=== PATIENT | female | born 1965 | race Caucasian/White ===

== ENCOUNTER 2017-03-13 14:57 | Inpatient (IN) | payer OTHER ==
[~2017-03-13] VITALS: Ht 165.1 cm; Wt 164.9 kg
[2017-03-13] MEDS ORDERED: TRAZ50TA35 PO (16:38)
[2017-03-13] MEDS ORDERED: OXYB10TA PO (16:38)
[2017-03-13] MEDS ORDERED: ALBU18002 INH (16:38)
[2017-03-13] MEDS ORDERED: ASPI81TA28 PO (16:38)
[2017-03-13] MEDS ORDERED: RANO1000 PO (16:38)
[2017-03-13] MEDS ORDERED: DULO60CA44 PO (16:38)
[2017-03-13] MEDS ORDERED: FLUT0.15 NAE (16:38)
[2017-03-13] MEDS ORDERED: FERR325T5 PO (16:38)
[2017-03-13] MEDS ORDERED: FURO-85 PO (16:38)
[2017-03-13] MEDS ORDERED: INSDGIPEN SC (16:38)
[2017-03-13] MEDS ORDERED: GABA-112 PO (16:38)
[2017-03-13] MEDS ORDERED: MEDR150I IM (16:38)
[2017-03-13] MEDS ORDERED: ATOR-22 PO (16:38)
[2017-03-13] MEDS ORDERED: PANT40TA PO (16:38)
[2017-03-13] MEDS ORDERED: EPP3/2 IM (16:38)
[2017-03-13] MEDS ORDERED: CHOL1CAP PO (16:38)
[2017-03-13] MEDS ORDERED: DULA1INJ SC (16:38)
[2017-03-13] MEDS ORDERED: ALBINS/ INH (16:38)
[2017-03-13 17:53] LABS: BUN/CREATININE RATIO 10.4 (10-20); CALCIUM 8.7 mg/dl (8.5-10.1); CREATININE 0.84 mg/dl (0.60-1.20); POTASSIUM 3.8 mmol/L (3.5-5.1)
[2017-03-13 17:56] LABS: ALB/GLOB RATIO 0.7 (0.9-2)
--- NOTE | 2017-03-13 18:27 | DIAGNOSTIC IMAGING REPORT ---
LEFT AXILLARY ULTRASOUND CLINICAL HISTORY: Left axillary edema. Evaluate for abscess. COMPARISON STUDY: No previous studies for comparison. FINDINGS: Sonography of the left axilla demonstrated no fluid collection to suggest an abscess. Soft tissue edema was noted. IMPRESSION: No left axillary abscess. Soft tissue edema may reflect cellulitis. Electronically signed by: Daljit Webb M.D. 03/13/2017 6:26 PM Dictated Date/Time: 03/13/2017 6:22 PM
--- NOTE | 2017-03-13 18:27 | DIAGNOSTIC IMAGING REPORT ---
RIGHT ABDOMINAL WALL ULTRASOUND CLINICAL HISTORY: Right abdominal wall cellulitis. Possible abscess. COMPARISON STUDY: No previous studies for comparison. FINDINGS: There is soft tissue edema involving the right lateral abdominal wall. There are several subcutaneous hypoechoic foci, but no well-defined fluid collections to indicate a drainable abscess. IMPRESSION: Extensive right lateral abdominal wall edema. No ultrasonographic evidence of a drainable abscess. Electronically signed by: Taz Burgos M.D. 03/13/2017 6:26 PM Dictated Date/Time: 03/13/2017 6:24 PM
[2017-03-13] MEDS ORDERED: VANCOMYCIN INJ 2,750 MG in SODIUM CHLORIDE 0.9% 250ML 250 ML IV STA (18:40)
[2017-03-13 18:46] LABS: BASO % 0.2 %; BASO ABS # 0.02 K/uL (0-0.2); COMPLETE YES; EOS % 0.7 %; HEMATOCRIT 39.6 % (37-47); IG% 0.2 %; LYMPH % 12.1 %; LYMPH ABS # 1.57 K/uL (1.2-3.4); MEAN CORPUSCULAR HGB CONC 34.1 g/dl (32-36); MEAN PLATELET VOLUME 11.2 fL (7.4-10.4); MONO % 8.7 %; NEUT % 78.1 %; PLATELET COUNT 205 K/uL (130-400); WHITE BLOOD COUNT 12.95 K/uL (4.8-10.8)
[2017-03-13] MEDS ORDERED: VANCOMYCIN INJ 2,750 MG in SODIUM CHLORIDE 0.9% 500ML 500 ML IV ONE (19:00)
--- NOTE | 2017-03-13 19:04 | EMERGENCY ROOM VISIT NOTE ---
ED Visit Note First contact with patient: 15:51 I did evaluate and examine this patient myself. I did guide management for the patient. I agree with the APC's assessment as discussed. Please see the APC's dictation for further details. I did independently review the ultrasound and blood work. The patient has a history of MRSA. The ultrasound does not show any evidence of drainable abscess. She is diabetic. No signs of necrotizing fasciitis. The patient will be hospitalized for IV antibiotics and further care.
[2017-03-13] MEDS ORDERED: TRAZODONE HCL 50 MG TAB PO PRN (19:45)
[2017-03-13] MEDS ORDERED: MAGNESIUM HYDROXIDE SUSP 30 ML UDC PO PRN (19:45)
[2017-03-13] MEDS ORDERED: FUROSEMIDE 20 MG TAB PO PRN (19:45)
[2017-03-13] MEDS ORDERED: ONDANSETRON INJ 2 MG/ML 2 ML VIAL IV PRN (19:45)
[2017-03-13] MEDS ORDERED: FLUTICASONE PROPIONATE NA SPR 16 GM BTL NAE PRN (19:45)
[2017-03-13] MEDS ORDERED: EPINEPHRINE ADULT AUTO-INJECT 0.3 MG SYR IM PRN (19:45)
[2017-03-13] MEDS ORDERED: ALBUTEROL 0.083% NEBU SOLN 3 ML VIAL INH PRN (19:45)
[2017-03-13] MEDS ORDERED: ALUMINUM/MAGNESIUM/SIMETH (MAALOX MAX) 30 ML UDC PO PRN (19:45)
--- NOTE | 2017-03-13 20:12 | History and Physical ---
History & Physical Date & Time of Service: Mar 13, 2017 at 20:03 Chief Complaint: Red Isaac On L Side And Up L Arm Primary Care Physician: Giovanny Rodriguez M.D. History of Present Illness Source: patient This is a 51 y/o F w/o IDDM, Asthma, depression who presents with redness/ warmth of her right abdominal wall and underside of her left upper arm that started 5 days ago. Does not recall any bug bites or tick bites. She is originally from [place]. Reports having a recent MRSA infection of her left lower extremity (2 mo ago) for which she was hospitalized. Reports fevers, chills, pain at the sites. ROS otherwise negative. Diabetes is uncontrolled per son. Does not work; takes care of grandchild. Past Medical/Surgical History DM HLD Asthma Depression Family History HTN Social History Smoking Status: Never Smoker Alcohol Use: occasionally Drug Use: none Marital Status: single Housing status: lives with family Occupational Status: unemployed Immunizations History of Influenza Vaccine: Unknown History of Tetanus Vaccine?: Unknown History of Pneumococcal: Unknown History of Hepatitis B Vaccine: Unknown Multi-Drug Resistant Organisms History of MDRO: No Allergies Coded Allergies: Bee Venom (Verified Allergy, Unknown, Unknown, 03/13/17) Cephalexin (Verified Allergy, Unknown, Unknown, 03/13/17) Clindamycin (Verified Allergy, Unknown, Unknown, 03/13/17) Diphenhydramine (Verified Allergy, Unknown, Unknown, 03/13/17) Erythromycin (Verified Allergy, Unknown, Unknown, 03/13/17) Fluticasone (Verified Allergy, Unknown, Unknown, 03/13/17) Milk Protein Extract (Verified Allergy, Unknown, Unknown, 03/13/17) Mometasone (Verified Allergy, Unknown, Unknown, 03/13/17) Salmeterol (Verified Allergy, Unknown, Unknown, 03/13/17) [place] (Verified Allergy, Unknown, Unknown, 03/13/17) Sulfamethoxazole w/Trimethoprim (Verified Allergy, Unknown, Unknown, 03/13) Uncoded Allergies: PAPER TAPE (Allergy, Unknown, Unknown, 03/13/17) Home Medications Scheduled Aspirin (Aspirin Ec), 81 MG PO DAILY Atorvastatin (Lipitor), 20 MG PO HS Dulaglutide (Trulicity), 0.5 ML SC WK Duloxetine Hcl (Cymbalta), 120 MG PO DAILY Ferrous Sulfate (Ferrous Sulfate), 325 MG PO BID Gabapentin (Neurontin), 100 MG PO BID Insulin Glargine (Lantus Solostar), 30 UNITS SC HS Medroxyprogesterone Acetate (C (Depo-Provera Contraceptiv), 150 MG IM Q10-12 WEELKS Oxybutynin Chloride Er (Ditropan Xl), 10 MG PO QAM Pantoprazole (Protonix), 40 MG PO DAILY Ranolazine (Ranexa), 1,000 MG PO BID Scheduled PRN Albuterol Sulf (Proventil 0.083% 2.5MG/3ML), 2.5 MG INH UD PRN for SOB/Wheezing Albuterol Sulfate (Proair Respiclick), 2 PUFFS INH Q4-6HRS PRN for SOB/Wheezing Cholecalciferol (Decara), 50,000 INTER.UNIT PO WK PRN for Supplement Epinephrine (Epipen), 0.3 MG IM UD PRN for ALLERGIC REACTION Fluticasone Propionate (Nasal) (Flonase Allergy Relief), 1-2 SPRAYS CYDNEY DAILY PRN for Allergy Symptoms Furosemide (Lasix), 20 MG PO DAILY PRN for Edema/Fluid Retention Trazodone Hcl (Trazodone), 25-50 MG PO HS PRN for Sleep Review of Systems Constitutional: + fever, + chills Eyes: No worsening of vision Respiratory: No cough, No sputum, No wheezing, No shortness of breath, No dyspnea on exertion, No dyspnea at rest Cardiovascular: No chest pain Abdomen: No pain, No nausea, No vomiting, No diarrhea Musculoskeletal: + muscle pain, + swelling Genitourinary - Female: No dysuria, No urinary frequency, No urinary urgency, No hematuria Integumentary: + rash, + new/changing skin lesions, + color change Physical Exam Vital Signs Date Time Temp Pulse Resp B/P (MAP) Pulse Ox O2 Delivery O2 Flow Rate FiO2 03/13/17 17:46 90 21 126/76 99 Room Air 03/13/17 16:18 110 03/13/17 16:17 95 Room Air 03/13/17 15:01 37.2 113 20 120/73 95 Room Air General Appearance: no apparent distress, + obese Eyes: PERRL, EOMI ENT: hearing grossly normal Neck: supple, no adenopathy Respiratory/Chest: lungs clear, normal breath sounds, no respiratory distress, no accessory muscle use Cardiovascular: regular rate, rhythm, no murmur Abdomen/GI: normal bowel sounds, soft, + tenderness, + pertinent finding ( Erythematous, indurated area over RUQ with area of skin break in the center) Extremities/Musculoskelatal: + pedal edema, + pertinent finding (Left upper Extremity with area of erythema in the posterior arm) Neurologic/Psych: alert, + depressed affect Diagnostics Laboratory Results Results Past 24 Hours Test 03/13/17 17:11 03/13/17 17:39 Range/Units White Blood Count 12.95 4.8-10.8 K/uL Red Blood Count 4.50 4.2-5.4 M/uL Hemoglobin 13.5 12.0-16.0 g/dL Hematocrit 39.6 37-47 % Mean Corpuscular Volume 88.0 80-100 fL Mean Corpuscular Hemoglobin 30.0 25-34 pg Mean Corpuscular Hemoglobin Concent 34.1 32-36 g/dl Platelet Count 205 130-400 K/uL Mean Platelet Volume 11.2 7.4-10.4 fL Neutrophils (%) (Auto) 78.1 % Lymphocytes (%) (Auto) 12.1 % Monocytes (%) (Auto) 8.7 % Eosinophils (%) (Auto) 0.7 % Basophils (%) (Auto) 0.2 % Neutrophils # (Auto) 10.11 1.4-6.5 K/uL Lymphocytes # (Auto) 1.57 1.2-3.4 K/uL Monocytes # (Auto) 1.13 0.11-0.59 K/uL Eosinophils # (Auto) 0.09 0-0.5 K/uL Basophils # (Auto) 0.02 0-0.2 K/uL RDW Standard Deviation 45.1 36.4-46.3 fL RDW Coefficient of Variation 13.9 11.5-14.5 % Immature Granulocyte % (Auto) 0.2 % Immature Granulocyte # (Auto) 0.03 0.00-0.02 K/uL Sodium Level 137 136-145 mmol/L Potassium Level 3.8 3.5-5.1 mmol/L Chloride Level 105 98-107 mmol/L Carbon Dioxide Level 26 21-32 mmol/L Anion Gap 6.0 3-11 mmol/L Blood Urea Nitrogen 9 7-18 mg/dl Creatinine 0.84 0.60-1.20 mg/dl Est Creatinine Clear Calc Drug Dose 128.1 ml/min Estimated GFR () 94.6 Estimated GFR (Non- 81.6 BUN/Creatinine Ratio 10.4 10-20 Random Glucose 229 70-99 mg/dl Calcium Level 8.7 8.5-10.1 mg/dl Total Bilirubin 1.0 0.2-1 mg/dl Aspartate Amino Transf (AST/SGOT) 5 15-37 U/L Alanine Aminotransferase (ALT/SGPT) 14 12-78 U/L Alkaline Phosphatase 113 45-117 U/L Total Protein 7.4 6.4-8.2 gm/dl Albumin 2.9 3.4-5.0 gm/dl Globulin 4.4 2.5-4.0 gm/dl Albumin/Globulin Ratio 0.7 0.9-2 Lactic Acid Level 1.0 0.4-2.0 mmol/L Microbiology Results 03/13/17 Blood Culture, Received Pending 03/13/17 Blood Culture, Received Pending Impression Assessment and Plan 51 y/o F w/ 1) RUQ abdominal wall cellulitis + Left upper posterior arm cellulitis vs. Erythema migrans/lymes Started on IV Vanc in the ED - continue to cover MRSA Add Doxy for Lymes (will cover mrsa as well - can D/C home with) Multiple drug allergies Blood cultures pending Afebrile Mild WBC count 2) Diabetes ISS Lantus 30 HS Accu-checks 3) Asthma Continue albuterol 4)CAD/LE edema/?CHF Continue ASA, Lipitor, Lasix 5) DVT proph Lovenox 6) Gerd Protonix 7) Depression/insomnia Trazadone 8) Code Full Attending Addendum: I have physically seen and examined this patient, have directed the resident's medical activities, and agree with the H&P as noted above with the following exceptions as noted. The patient is awake, alert and oriented 3, well-developed and well-nourished , normocephalic and atraumatic, lying in bed and in no acute distress. HEENT--PERRL, EOMI, mucous membranes and oropharynx dry. Neck--supple, no JVD or bruits, thyroid normal, trachea midline, no adenopathy. Heart--normal S1 and S2, no extra beats, no murmurs, rubs or gallops. Lungs--clear bilaterally with good air movement, no respiratory distress, no accessory muscle use. Abdomen--normal bowel sounds and soft, nontender and nondistended, no hernias or masses, no organomegaly, obese. Extremities--no cyanosis, clubbing or edema. There are good distal pulses b/l. Dermatologic--large area of erythema right lateral abdomen with centralized area of deeper erythema and tenderness. Left axilla with milder erythema and tenderness. Neurologic--cranial nerves II through XII grossly intact. Rheumatologic--left shoulder range of motion decreased due to skin pain, otherwise normal Psychiatric--normal affect. Assessment and Plan: Cellulitis right lateral abdominal wall and left axilla/history of MRSA-- Admitted to medical surgical floor. Place on vancomycin IV and doxycycline by mouth. Reports having been on doxycycline for previous skin infection. Follow blood cultures. Diabetes mellitus--Lantus 30 units subcutaneous at bedtime. Place on Accu-Cheks before meals and at bedtime with NovoLog coverage per scale. CAD/hypertension-- Continue aspirin and Lasix. Hyperlipidemia--continue Lipitor. Level of Care Med/Surg Advanced Directives Existing Advance Directive: No Existing Living Will: No Existing Power of Principal Programmer: No Resuscitation Status FULL RESUSCITATION VTE Prophylaxis VTE Risk Assessment Done? Y/N: Yes Risk Level: Moderate Given or contraindicated: SCD's Social Service Consult None Apply
[2017-03-13] MEDS ORDERED: IV FLUIDS COMPLETED PRN (20:30)
[2017-03-13 20:37] VITALS: BP 110/71; PULSE 98; TEMP 36.7; O2SAT 99
[2017-03-13 20:45] VITALS: BP 110/71; PULSE 98; TEMP 36.7; O2SAT 99; BMI 60.5
[2017-03-13] MEDS ORDERED: GLUCOSE 40% GEL 15 GM TUBE PO PRN (20:45)
[2017-03-13] MEDS ORDERED: DEXTROSE 50% 50 ML SYR IV PRN (20:45)
[2017-03-13] MEDS ORDERED: GLUCAGON FOR INJ 1 MG VIAL SQ PRN (20:45)
[2017-03-13] MEDS ORDERED: GLUCOSE 10 TABS/TUBE PO PRN (20:45)
[2017-03-13] MEDS ORDERED: VANCOMYCIN INJ 1,000 MG in SODIUM CHLORIDE 0.9% 250ML 250 ML IV SCH (21:00)
[2017-03-13] MEDS ORDERED: DOXYCYCLINE HYCLATE 100 MG CAP PO SCH (21:00)
[2017-03-13] MEDS ORDERED: VANCOMYCIN CONSULT ACTIVE PRN (21:15)
[2017-03-13 21:40] LABS: LYME DISEASE AB IGG NEG (NEG); LYME DISEASE AB IGM NEG (NEG)
[2017-03-13] MEDS: ATORVASTATIN 20 MG TAB PO SCH (21:42)
[2017-03-13] MEDS: FERROUS SULFATE 325 MG TAB PO SCH (21:42)
[2017-03-13] MEDS: GABAPENTIN 100 MG CAP PO SCH (21:42)
[2017-03-13] MEDS: INSULIN GLARGINE SOLOSTAR 100 UNITS/ML 3 ML PEN SC SCH (21:50)
[2017-03-13] MEDS: INSULIN ASPART 100 UNITS/ML 3 ML PEN SC SCH (21:50)
[2017-03-13 22:38] LABS: INR 1.1 (0.9-1.1); PARTIAL THROMBOPLASTIN RATIO 1.3; PROTHROMBIN TIME (PATIENT) 11.7 SECONDS (9.0-12.0)
--- NOTE | 2017-03-13 22:40 | Pharmacy Progress Note ---
Pharmacy Antibiotic Consult Date of Service: Mar 13, 2017. Pharmacy Dosing Scope Pharmacy is consulted to initiate vancomycin IV dosing therapy, order appropriate labs and adjust drug dose/frequency. Subjective The patient is a 51 year old female admitted on Mar 13, 2017 at 19:50. Objective Height (Feet): 5 Height (Inches): 5.00 Weight (Kilograms): 164.900 Lab Results (24hrs): Test 03/13/17 17:11 03/13/17 17:39 03/13/17 20:34 03/13/17 21:45 White Blood Count 12.95 K/uL (4.8-10.8) Red Blood Count 4.50 M/uL (4.2-5.4) Hemoglobin 13.5 g/dL (12.0-16.0) Hematocrit 39.6 % (37-47) Mean Corpuscular Volume 88.0 fL (80-100) Mean Corpuscular Hemoglobin 30.0 pg (25-34) Mean Corpuscular Hemoglobin Concent 34.1 g/dl (32-36) Platelet Count 205 K/uL (130-400) Mean Platelet Volume 11.2 fL (7.4-10.4) Neutrophils (%) (Auto) 78.1 % Lymphocytes (%) (Auto) 12.1 % Monocytes (%) (Auto) 8.7 % Eosinophils (%) (Auto) 0.7 % Basophils (%) (Auto) 0.2 % Neutrophils # (Auto) 10.11 K/uL (1.4-6.5) Lymphocytes # (Auto) 1.57 K/uL (1.2-3.4) Monocytes # (Auto) 1.13 K/uL (0.11-0.59) Eosinophils # (Auto) 0.09 K/uL (0-0.5) Basophils # (Auto) 0.02 K/uL (0-0.2) RDW Standard Deviation 45.1 fL (36.4-46.3) RDW Coefficient of Variation 13.9 % (11.5-14.5) Immature Granulocyte % (Auto) 0.2 % Immature Granulocyte # (Auto) 0.03 K/uL (0.00-0.02) Sodium Level 137 mmol/L (136-145) Potassium Level 3.8 mmol/L (3.5-5.1) Chloride Level 105 mmol/L (98-107) Carbon Dioxide Level 26 mmol/L (21-32) Anion Gap 6.0 mmol/L (3-11) Blood Urea Nitrogen 9 mg/dl (7-18) Creatinine 0.84 mg/dl (0.60-1.20) Est Creatinine Clear Calc Drug Dose 128.1 ml/min Estimated GFR () 94.6 Estimated GFR (Non- 81.6 BUN/Creatinine Ratio 10.4 (10-20) Random Glucose 229 mg/dl (70-99) Calcium Level 8.7 mg/dl (8.5-10.1) Total Bilirubin 1.0 mg/dl (0.2-1) Aspartate Amino Transf (AST/SGOT) 5 U/L (15-37) Alanine Aminotransferase (ALT/SGPT) 14 U/L (12-78) Alkaline Phosphatase 113 U/L (45-117) Total Protein 7.4 gm/dl (6.4-8.2) Albumin 2.9 gm/dl (3.4-5.0) Globulin 4.4 gm/dl (2.5-4.0) Albumin/Globulin Ratio 0.7 (0.9-2) Lyme Disease IgG Antibody NEG (NEG) Lyme Disease IgM Antibody NEG (NEG) Lactic Acid Level 1.0 mmol/L (0.4-2.0) Bedside Glucose 225 mg/dl (70-90) Assessment & Plan Patient started on vancomycin for abdominal cell wall cellulitis infection. BC x 2 are pending. Vancomycin: * LD of vancomycin 2750 mg (~17 mg/kg) given in the ED * Will start MD of vancomycin 1750 mg iv q 12 hrs to achieve an estimated trough ~15 mcg/ml * Estimated kinetics: t1/2~9 hrs, ke~0.08 hr-1, CrCl >100 ml/min (used CrCl max of 100 ml/min to calculate kinetics) * Will plan to order a trough prior to the 1600 dose on 03/15 to ensure therapeutic * Note, patient with elevated BMI >35 kg/m2 (actual 60 kg/m2) therefore was less aggressive with dosing b/c of risk of drug accumulation; will monitor closely Pharmacy will continue to follow and will adjust dose/frequency as necessary. Thank you
[2017-03-13] MEDS: RANOLAZINE 500 MG ER TAB PO SCH (22:54)
[2017-03-13] MEDS: ACETAMINOPHEN 325 MG TAB PO PRN (22:58)
[2017-03-13 23:06] VITALS: BP 100/61; PULSE 90; TEMP 38; O2SAT 98
[2017-03-13 23:57] VITALS: TEMP 37.3
[2017-03-14] MEDS: ENOXAPARIN 40 MG/0.4 ML SYR SQ SCH ×2 (00:55→21:22)
--- NOTE | 2017-03-14 02:10 | EMERGENCY ROOM VISIT NOTE ---
History First contact with patient: 15:51 Chief Complaint: OTHER COMPLAINT Stated Complaint: CELLULITIS OF RIGHT ABDOMINAL WALL History of Present Illness The patient is a 51 year old female who presents to the Emergency Room via private vehicle with complaints of "red laura on right side, and left arm". The patient states that since Thursday she has been noting swelling on the right side of the abdomen as well as the left axillary region. The regions have been increasingly becoming more red and getting larger in size. They're painful. She has a history of MRSA. She notes that she also has diabetes. Review of Systems A complete 10-point Review of Systems was discussed with the patient, with pertinent positives and negatives listed in the History of Present Illness. All remaining Review of Systems questions can be considered negative unless otherwise specified. Past Medical/Surgical History Medical Problems: (1) Cellulitis of right abdominal wall Family History No pertinent. Social History Smoking Status: Never Smoker Drug Use: none Marital Status: single Occupation Status: unemployed Current/Historical Medications Scheduled Aspirin (Aspirin Ec), 81 MG PO DAILY Atorvastatin (Lipitor), 20 MG PO HS Dulaglutide (Trulicity), 0.5 ML SC WK Duloxetine Hcl (Cymbalta), 120 MG PO DAILY Ferrous Sulfate (Ferrous Sulfate), 325 MG PO BID Gabapentin (Neurontin), 100 MG PO BID Insulin Glargine (Lantus Solostar), 30 UNITS SC HS Medroxyprogesterone Acetate (C (Depo-Provera Contraceptiv), 150 MG IM Q10-12 WEELKS Oxybutynin Chloride Er (Ditropan Xl), 10 MG PO QAM Pantoprazole (Protonix), 40 MG PO DAILY Ranolazine (Ranexa), 1,000 MG PO BID Scheduled PRN Albuterol Sulf (Proventil 0.083% 2.5MG/3ML), 2.5 MG INH UD PRN for SOB/Wheezing Albuterol Sulfate (Proair Respiclick), 2 PUFFS INH Q4-6HRS PRN for SOB/Wheezing Cholecalciferol (Decara), 50,000 INTER.UNIT PO WK PRN for Supplement Epinephrine (Epipen), 0.3 MG IM UD PRN for ALLERGIC REACTION Fluticasone Propionate (Nasal) (Flonase Allergy Relief), 1-2 SPRAYS CYDNEY DAILY PRN for Allergy Symptoms Furosemide (Lasix), 20 MG PO DAILY PRN for Edema/Fluid Retention Trazodone Hcl (Trazodone), 25-50 MG PO HS PRN for Sleep Physical Exam Vital Signs Date Time Temp Pulse Resp B/P (MAP) Pulse Ox O2 Delivery O2 Flow Rate FiO2 03/13/17 17:46 90 21 126/76 99 Room Air 03/13/17 16:18 110 03/13/17 16:17 95 Room Air 03/13/17 15:01 37.2 113 20 120/73 95 Room Air Physical Exam VITAL SIGNS - Vital signs and nursing notes were reviewed. Stable. GENERAL -51-year-old female appearing her stated age who is in no acute distress. Communicates well with provider and answers questions appropriately. SKIN -there is a large right sided abdominal wall cellulitis as well as left axillary region. There are central indurated regions with no fluctuance. The right sided abdominal region measures approximately 10 cm in height, by about 30 cm in length. The left axillary region exhibits a very tender central nodule -like region, followed by a region of about 15 x 10 cm in size cellulitic area. HEAD - NC/AT. LUNGS - Chest wall symmetric without accessory muscle use, intercostals retractions, or central cyanosis. Normal vesicular breath sounds CTA B/L. No wheezes, rales, or rhonchi appreciated. CARDIAC - RRR with S1/S2. No murmur, rubs, or gallops appreciated. Medical Decision & Procedures ER Provider Diagnostic Interpretation: LEFT AXILLARY ULTRASOUND CLINICAL HISTORY: Left axillary edema. Evaluate for abscess. COMPARISON STUDY: No previous studies for comparison. FINDINGS: Sonography of the left axilla demonstrated no fluid collection to suggest an abscess. Soft tissue edema was noted. IMPRESSION: No left axillary abscess. Soft tissue edema may reflect cellulitis. Electronically signed by: Daljit Webb M.D. 03/13/2017 6:26 PM Dictated Date/Time: 03/13/2017 6:22 PM RIGHT ABDOMINAL WALL ULTRASOUND CLINICAL HISTORY: Right abdominal wall cellulitis. Possible abscess. COMPARISON STUDY: No previous studies for comparison. FINDINGS: There is soft tissue edema involving the right lateral abdominal wall. There are several subcutaneous hypoechoic foci, but no well-defined fluid collections to indicate a drainable abscess. IMPRESSION: Extensive right lateral abdominal wall edema. No ultrasonographic evidence of a drainable abscess. Electronically signed by: Taz Burgos M.D. 03/13/2017 6:26 PM Dictated Date/Time: 03/13/2017 6:24 PM Laboratory Results 03/13/17 17:11 Red Blood Count 4.50, Mean Corpuscular Volume 88.0, Mean Corpuscular Hemoglobin 30.0, Mean Corpuscular Hemoglobin Concent 34.1, Mean Platelet Volume 11.2, Neutrophils (%) (Auto) 78.1, Lymphocytes (%) (Auto) 12.1, Monocytes (%) (Auto) 8.7, Eosinophils (%) (Auto) 0.7, Basophils (%) (Auto) 0.2, Neutrophils # (Auto) 10.11, Lymphocytes # (Auto) 1.57, Monocytes # (Auto) 1.13, Eosinophils # (Auto) 0.09, Basophils # (Auto) 0.02 03/13/17 17:11 Test 03/13/17 17:11 03/13/17 17:39 White Blood Count 12.95 K/uL (4.8-10.8) Red Blood Count 4.50 M/uL (4.2-5.4) Hemoglobin 13.5 g/dL (12.0-16.0) Hematocrit 39.6 % (37-47) Mean Corpuscular Volume 88.0 fL (80-100) Mean Corpuscular Hemoglobin 30.0 pg (25-34) Mean Corpuscular Hemoglobin Concent 34.1 g/dl (32-36) Platelet Count 205 K/uL (130-400) Mean Platelet Volume 11.2 fL (7.4-10.4) Neutrophils (%) (Auto) 78.1 % Lymphocytes (%) (Auto) 12.1 % Monocytes (%) (Auto) 8.7 % Eosinophils (%) (Auto) 0.7 % Basophils (%) (Auto) 0.2 % Neutrophils # (Auto) 10.11 K/uL (1.4-6.5) Lymphocytes # (Auto) 1.57 K/uL (1.2-3.4) Monocytes # (Auto) 1.13 K/uL (0.11-0.59) Eosinophils # (Auto) 0.09 K/uL (0-0.5) Basophils # (Auto) 0.02 K/uL (0-0.2) RDW Standard Deviation 45.1 fL (36.4-46.3) RDW Coefficient of Variation 13.9 % (11.5-14.5) Immature Granulocyte % (Auto) 0.2 % Immature Granulocyte # (Auto) 0.03 K/uL (0.00-0.02) Anion Gap 6.0 mmol/L (3-11) Est Creatinine Clear Calc Drug Dose 128.1 ml/min Estimated GFR () 94.6 Estimated GFR (Non- 81.6 BUN/Creatinine Ratio 10.4 (10-20) Calcium Level 8.7 mg/dl (8.5-10.1) Total Bilirubin 1.0 mg/dl (0.2-1) Aspartate Amino Transf (AST/SGOT) 5 U/L (15-37) Alanine Aminotransferase (ALT/SGPT) 14 U/L (12-78) Alkaline Phosphatase 113 U/L (45-117) Total Protein 7.4 gm/dl (6.4-8.2) Albumin 2.9 gm/dl (3.4-5.0) Globulin 4.4 gm/dl (2.5-4.0) Albumin/Globulin Ratio 0.7 (0.9-2) Lyme Disease IgG Antibody NEG (NEG) Lyme Disease IgM Antibody NEG (NEG) Lactic Acid Level 1.0 mmol/L (0.4-2.0) Medications Administered Medications (Trade) Dose Ordered Sig/Dana Route Start Time Stop Time Status Last Admin Dose Admin Vancomycin HCl 2750 mg/Sodium Chloride 555 ml @ 200 mls/hr TODAY@1900 ONCE IV 03/13/17 19:00 03/13/17 21:46 DC 03/13/17 18:55 200 MLS/HR Acetaminophen (Tylenol Tab) 650 mg Q4H PRN PO 03/13/17 19:45 04/12/17 19:44 03/13/17 22:58 650 MG Medical Decision Patient was seen and evaluated as above. She presents to us today with cellulitis since the beginning of the week. Question whether or not there are abscesses, and given her underlying history of diabetes, as well as MRSA I do not want to attempt drainage unless verified abscesses. Ultrasound results as above. No drainable collection. Vancomycin will be initiated after identifying kidney function appropriately. CBC reveals slight leukocytosis. No evidence of kidney or liver failure. At this time I believe that inpatient management is warranted. Case was discussed with the attending physician, and subsequent to the hospitalist. Please refer to further documentation regarding her stay. Vancomycin was dosed after discussing dosing with pharmacist. In evaluation treatment this patient following differential diagnoses were entertained: Sialitis, abscess, sepsis, among others. Impression Primary Impression: Cellulitis of right abdominal wall Additional Impression: Cellulitis of left axilla Departure Information Dispostion Admitted as an inpatient Condition FAIR Referrals Giovanny Rodriguez M.D. (PCP) Forms WORK / SCHOOL INSTRUCTIONS, HOME CARE DOCUMENTATION FORM, IMPORTANT VISIT INFORMATION Patient Instructions [facility] Problem Qualifiers
[2017-03-14 03:00] VITALS: TEMP 36.7
[2017-03-14] MEDS: VANCOMYCIN INJ 1,750 MG in SODIUM CHLORIDE 0.9% 500ML 500 ML IV SCH ×2 (03:47→15:40)
[2017-03-14] MEDS: ACETAMINOPHEN 325 MG TAB PO PRN (03:48)
[2017-03-14 06:59] VITALS: BP 112/62; PULSE 84; TEMP 37; O2SAT 97
[2017-03-14] MEDS: INSULIN ASPART 100 UNITS/ML 3 ML PEN SC SCH ×4 (07:39→21:27)
[2017-03-14] MEDS: PANTOprazole SOD 40 MG TAB PO SCH (07:46)
[2017-03-14] MEDS: RANOLAZINE 500 MG ER TAB PO SCH ×2 (07:47→21:22)
[2017-03-14] MEDS: GABAPENTIN 100 MG CAP PO SCH ×2 (07:47→21:23)
[2017-03-14] MEDS: DULOXETINE HCL 60 MG CAP PO SCH (07:47)
[2017-03-14] MEDS: FERROUS SULFATE 325 MG TAB PO SCH ×2 (07:47→21:23)
[2017-03-14] MEDS: ASPIRIN 81 MG ECTAB PO SCH (07:48)
[2017-03-14] MEDS: OXYBUTYNIN CHLORIDE 5 MG TABCR PO SCH (07:48)
[2017-03-14 08:40] LABS: BASO % 0.1 %; BASO ABS # 0.01 K/uL (0-0.2); COMPLETE YES; EOS % 1.6 %; IG% 0.3 %; LYMPH % 12.3 %; LYMPH ABS # 1.42 K/uL (1.2-3.4); MEAN CORPUSCULAR HEMOGLOBIN 28.7 pg (25-34); MEAN CORPUSCULAR HGB CONC 32.6 g/dl (32-36); MONO % 7.1 %; NEUT % 78.6 %; PLATELET COUNT 185 K/uL (130-400); RED BLOOD COUNT 4.32 M/uL (4.2-5.4); WHITE BLOOD COUNT 11.52 K/uL (4.8-10.8)
--- NOTE | 2017-03-14 10:07 | Family Medicine Progress Note ---
Progress Note Date of Service Mar 14, 2017. Subjective Pt evaluation today including: conversation w/ patient, physical exam, chart review, lab review, review of studies Pain: reports mild soreness in L axillary and R lateral abdominal regions PO Intake: tolerating Voiding: no voiding problems This AM pt reports onset of L axillary and R lateral abdominal wall soreness earlier in the week which got worse, and erythematous over the course of the week. She cares for her grandchild and thus had difficulty presenting for evaluation earlier. Otherwise she denies any f/c, cp, sob, abd pn, n/v/d or pain in her extremities. Constitutional: No fever, No chills Respiratory: No shortness of breath Cardiovascular: No chest pain Abdomen: + pain (R lateral abdominal wall soreness), No nausea Musculoskeletal: + problem reported (L axillary region soreness) Female : No dysuria Skin: + color change, + problem reported (erythema and edema of L axillary region and R lateral abdominal wall) Medications Current Inpatient Medications Medications (Trade) Dose Ordered Sig/Dana Route Start Time Stop Time Status Last Admin Dose Admin Enoxaparin Sodium (Lovenox Inj) 40 mg QPM SQ 03/13/17 23:00 04/12/17 22:59 Acetaminophen (Tylenol Tab) 650 mg Q4H PRN PO 03/13/17 19:45 04/12/17 19:44 03/14/17 03:48 650 MG Al Hydrox/Mg Hydrox/Simethicone (Maalox Max Susp) 15 ml Q4H PRN PO 03/13/17 19:45 04/12/17 19:44 Magnesium Hydroxide (Milk Of Magnesia Susp) 30 ml Q6H PRN PO 03/13/17 19:45 04/12/17 19:44 Ondansetron HCl (Zofran Inj) 4 mg Q6H PRN IV 03/13/17 19:45 04/12/17 19:44 Albuterol Sulfate (Ventolin 0.083% 2.5MG/3ML Neb) 2.5 mg UD PRN INH 03/13/17 19:45 04/12/17 19:44 Aspirin (Ecotrin Tab) 81 mg DAILY PO 03/14/17 09:00 04/13/17 08:59 03/14/17 07:48 81 MG Atorvastatin Calcium (Lipitor Tab) 20 mg HS PO 03/13/17 21:00 04/12/17 20:59 03/13/17 21:42 20 MG Duloxetine HCl (Cymbalta Cap) 120 mg DAILY PO 03/14/17 09:00 04/13/17 08:59 03/14/17 07:47 120 MG Epinephrine (Epipen) 0.3 mg UD PRN IM 03/13/17 19:45 04/12/17 19:44 Ferrous Sulfate (Feosol Tab) 325 mg BID PO 03/13/17 21:00 04/12/17 20:59 03/14/17 07:47 325 MG Fluticasone Propionate (Flonase Nasal [place]) 1 sprays DAILY PRN CYDNEY 03/13/17 19:45 04/12/17 19:44 Furosemide (Lasix Tab) 20 mg DAILY PRN PO 03/13/17 19:45 04/12/17 19:44 Gabapentin (Neurontin Cap) 100 mg BID PO 03/13/17 21:00 04/12/17 20:59 03/14/17 07:47 100 MG Oxybutynin Chloride (Ditropan-Xl Tab) 10 mg QAM PO 03/14/17 09:00 04/13/17 08:59 03/14/17 07:48 10 MG Pantoprazole Sodium (Protonix Tab) 40 mg DAILY PO 03/14/17 09:00 04/13/17 08:59 03/14/17 07:46 40 MG Trazodone HCl (Desyrel Tab) 25 mg HS PRN PO 03/13/17 19:45 04/12/17 19:44 Insulin Aspart (novoLOG ASPART) SLIDING SCALE G... ACHS SC 03/13/17 21:00 04/12/17 20:59 03/13/17 21:50 4 UNITS Insulin Glargine (Lantus Solostar Pen) 30 units HS SC 03/13/17 21:00 04/12/17 20:59 03/13/17 21:50 30 UNITS Miscellaneous (Iv Fluids Completed) 1 ea PRN PRN N/A 03/13/17 20:30 03/13/18 20:29 Glucose (Glucose 40% Gel) 15-30 GRAMS 15 GRAMS... UD PRN PO 03/13/17 20:45 04/12/17 20:44 Glucose (Glucose Chew Tab) 4-8 Tablets 4 Tabl... UD PRN PO 03/13/17 20:45 04/12/17 20:44 Dextrose (Dextrose 50% 50ML Syringe) 25-50ML OF 50% DW IV FOR... UD PRN IV 03/13/17 20:45 04/12/17 20:44 Glucagon (Glucagon Inj) 1 mg UD PRN SQ 03/13/17 20:45 04/12/17 20:44 Vancomycin HCl (Consult) 1 ea UD PRN N/A 03/13/17 21:15 04/12/17 21:14 Vancomycin HCl 1750 mg/Sodium Chloride 535 ml @ 200 mls/hr Q12H IV 03/14/17 04:00 03/24/17 03:59 03/14/17 03:47 200 MLS/HR Ranolazine (Ranexa ER Tab) 1,000 mg BID PO 03/14/17 09:00 04/13/17 08:59 03/14/17 07:47 1,000 MG Objective Vital Signs Date Time Temp Pulse Resp B/P (MAP) Pulse Ox O2 Delivery O2 Flow Rate FiO2 03/14/17 08:00 Room Air 03/14/17 06:59 37.0 84 20 112/62 (79) 97 Room Air 03/14/17 03:00 36.7 03/14/17 00:03 Room Air 03/13/17 23:57 37.3 03/13/17 23:06 38.0 90 20 100/61 (74) 98 Room Air 03/13/17 20:45 36.7 98 20 110/71 99 Room Air 03/13/17 20:37 36.7 98 20 110/71 (84) 99 Room Air 03/13/17 20:14 102 20 139/69 98 Room Air 03/13/17 17:46 90 21 126/76 99 Room Air 03/13/17 16:18 110 03/13/17 16:17 95 Room Air 03/13/17 15:01 37.2 113 20 120/73 95 Room Air Physical Exam General Appearance: no apparent distress Eyes: normal inspection Neck: supple Respiratory/Chest: lungs clear, normal breath sounds Cardiovascular: regular rate, rhythm, no edema, no murmur Abdomen: normal bowel sounds, non tender, soft, + pertinent finding (R lateral abdominal wall area of erythema and induration tender to palpation w/ot notable fluctuance, area of skin break noted in the center that is not oozing or fluctuant) Extremities: + pertinent finding (R axillary region of erythema, and induration , TTP, w/ot fluctuance) Neurologic/Psychiatric: alert, oriented x 3 Skin: + pertinent finding (see above) Laboratory Results 03/14/17 08:14 Red Blood Count 4.32, Mean Corpuscular Volume 88.0, Mean Corpuscular Hemoglobin 28.7, Mean Corpuscular Hemoglobin Concent 32.6, Mean Platelet Volume 11.0, Neutrophils (%) (Auto) 78.6, Lymphocytes (%) (Auto) 12.3, Monocytes (%) (Auto) 7.1, Eosinophils (%) (Auto) 1.6, Basophils (%) (Auto) 0.1, Neutrophils # (Auto) 9.06, Lymphocytes # (Auto) 1.42, Monocytes # (Auto) 0.82, Eosinophils # (Auto) 0.18, Basophils # (Auto) 0.01 03/13/17 17:11 Test 03/13/17 17:11 03/13/17 17:39 03/13/17 21:45 03/14/17 07:23 Anion Gap 6.0 mmol/L (3-11) Est Creatinine Clear Calc Drug Dose 128.1 ml/min Estimated GFR () 94.6 Estimated GFR (Non- 81.6 BUN/Creatinine Ratio 10.4 (10-20) Calcium Level 8.7 mg/dl (8.5-10.1) Total Bilirubin 1.0 mg/dl (0.2-1) Aspartate Amino Transf (AST/SGOT) 5 U/L (15-37) Alanine Aminotransferase (ALT/SGPT) 14 U/L (12-78) Alkaline Phosphatase 113 U/L (45-117) Total Protein 7.4 gm/dl (6.4-8.2) Albumin 2.9 gm/dl (3.4-5.0) Globulin 4.4 gm/dl (2.5-4.0) Albumin/Globulin Ratio 0.7 (0.9-2) Lyme Disease IgG Antibody NEG (NEG) Lyme Disease IgM Antibody NEG (NEG) Lactic Acid Level 1.0 mmol/L (0.4-2.0) Prothrombin Time 11.7 SECONDS (9.0-12.0) Prothromb Time International Ratio 1.1 (0.9-1.1) Activated Partial Thromboplast Time 32.6 SECONDS (21.0-31.0) Partial Thromboplastin Ratio 1.3 Bedside Glucose 154 mg/dl (70-90) Test 03/14/17 08:14 White Blood Count 11.52 K/uL (4.8-10.8) Red Blood Count 4.32 M/uL (4.2-5.4) Hemoglobin 12.4 g/dL (12.0-16.0) Hematocrit 38.0 % (37-47) Mean Corpuscular Volume 88.0 fL (80-100) Mean Corpuscular Hemoglobin 28.7 pg (25-34) Mean Corpuscular Hemoglobin Concent 32.6 g/dl (32-36) Platelet Count 185 K/uL (130-400) Mean Platelet Volume 11.0 fL (7.4-10.4) Neutrophils (%) (Auto) 78.6 % Lymphocytes (%) (Auto) 12.3 % Monocytes (%) (Auto) 7.1 % Eosinophils (%) (Auto) 1.6 % Basophils (%) (Auto) 0.1 % Neutrophils # (Auto) 9.06 K/uL (1.4-6.5) Lymphocytes # (Auto) 1.42 K/uL (1.2-3.4) Monocytes # (Auto) 0.82 K/uL (0.11-0.59) Eosinophils # (Auto) 0.18 K/uL (0-0.5) Basophils # (Auto) 0.01 K/uL (0-0.2) RDW Standard Deviation 45.0 fL (36.4-46.3) RDW Coefficient of Variation 13.8 % (11.5-14.5) Immature Granulocyte % (Auto) 0.3 % Immature Granulocyte # (Auto) 0.03 K/uL (0.00-0.02) Assessment and Plan 51 yoF with hx DM-insulin dependent, neuropathy, varicose veins, HLD, asthma, depression, overactive bladder and hx of previous MRSA infection who presented with R lateral abdominal wall and L axillary region erythema/induration x 5 days consistent with cellulitis based on ultrasound, elevated WBC and clinical presentation. On IV Vanc. No drainable abscess at this time. Lyme also considered and ruled out. Right lateral abdominal wall and L axillary region cellulitis - mild extension beyond margins drawn in the ED noted this AM. AFVSS - US: soft tissue edema consistent with cellulitis, no drainable abscess - WBC downtrending 13.45 -> 11.52 this AM - Lactate 1 - BCx pending - Continue IV Vanc to cover for MRSA - Once clinically improved transition to doxycycline (allergic to multiple abx) will cover MRSA Diabetes - ISS - Lantus 30 HS - Accu-checks Neuropathy - Gabapentin CAD/LE edema/?CHF - Continue ASA, Lasix, lipitor - Continue Ranolazine Asthma - Continue albuterol GERD - Protonix Overactive bladder - Oxybutynin Depression/insomnia - Duloxetine - Trazadone DVT prophylaxis - Lovenox Full Code Continued [facility] stay due to: other (On IV medications, pending clinical improvement) Discharge planning: home Resident Involvement: Resident Care Provided Care Provided: Adult Hospital Medicine Reviewed: Pt Seen/Exam by Me History continues to have pain in the right flank area of redness and left armpit Constitutional: denies: fever Respiratory: negative: short of breath Cardiovascular: denies chest pain General Appearance: no apparent distress, obese Respiratory: lungs clear, no respiratory distress Cardiovascular: regular rate, rhythm Neurologic/Psychiatric: alert, oriented x 3 Skin Characteristics: other (right flank area skin with extending erythema beyond pen laura. tenderness ++. left axilla with mild erythema and underlying induration) Assessment/Plan Resident Physician Supervision Note: I independently interviewed and examined the patient and verified the rodriguez history and physical, reviewed labs and image studies, discussed the case with the resident Dr. Ellison and agree with the findings and care plan.
[2017-03-14 15:04] VITALS: BP 102/68; PULSE 83; TEMP 36.8; O2SAT 97
[2017-03-14] MEDS: ATORVASTATIN 20 MG TAB PO SCH (21:24)
[2017-03-14] MEDS: INSULIN GLARGINE SOLOSTAR 100 UNITS/ML 3 ML PEN SC SCH (21:28)
[2017-03-14 22:56] VITALS: BP 124/70; PULSE 88; TEMP 37; O2SAT 96
[2017-03-15] MEDS: VANCOMYCIN INJ 1,750 MG in SODIUM CHLORIDE 0.9% 500ML 500 ML IV SCH ×2 (04:18→16:30)
[2017-03-15 07:13] VITALS: BP 102/63; PULSE 83; TEMP 36.8; O2SAT 94
[2017-03-15 07:23] LABS: BASO % 0.1 %; BASO ABS # 0.01 K/uL (0-0.2); COMPLETE YES; EOS % 2.6 %; HEMATOCRIT 35.6 % (37-47); IG% 0.1 %; LYMPH % 16.9 %; LYMPH ABS # 1.45 K/uL (1.2-3.4); MEAN CELL VOLUME 86.8 fL (80-100); MEAN CORPUSCULAR HEMOGLOBIN 28.5 pg (25-34); MEAN CORPUSCULAR HGB CONC 32.9 g/dl (32-36); MEAN PLATELET VOLUME 10.9 fL (7.4-10.4); MONO % 7.3 %; PLATELET COUNT 188 K/uL (130-400)
[2017-03-15 07:52] LABS: BUN/CREATININE RATIO 8.9 (10-20); CALCIUM 8.1 mg/dl (8.5-10.1); CREATININE 0.64 mg/dl (0.60-1.20); POTASSIUM 3.7 mmol/L (3.5-5.1)
[2017-03-15] MEDS: GABAPENTIN 100 MG CAP PO SCH ×2 (08:07→21:19)
[2017-03-15] MEDS: RANOLAZINE 500 MG ER TAB PO SCH ×2 (08:07→21:15)
[2017-03-15] MEDS: PANTOprazole SOD 40 MG TAB PO SCH (08:08)
[2017-03-15] MEDS: ASPIRIN 81 MG ECTAB PO SCH (08:08)
[2017-03-15] MEDS: FERROUS SULFATE 325 MG TAB PO SCH ×2 (08:08→21:20)
[2017-03-15] MEDS: OXYBUTYNIN CHLORIDE 5 MG TABCR PO SCH (08:08)
[2017-03-15] MEDS: DULOXETINE HCL 60 MG CAP PO SCH (08:08)
[2017-03-15] MEDS: INSULIN ASPART 100 UNITS/ML 3 ML PEN SC SCH ×4 (08:13→21:16)
--- NOTE | 2017-03-15 10:26 | Surgery Consultation ---
Consultation Date of Consultation: Mar 15, 2017. Attending Physician: Olivia Resendez M.D. History of Present Illness pt began with a red spot on her right abdomen on thursday and this progressed. admitted thursday for cellulitis and IV antibiotics started. the cellulitis is progressing into an abcess Past Medical/Surgical History Medical Problems: (1) Cellulitis of left axilla Status: Acute Social History Smoking Status: Never Smoker Alcohol Use: occasionally Drug Use: none Marital Status: single Occupation Status: unemployed Allergies Coded Allergies: Bee Venom (Verified Allergy, Unknown, Unknown, 03/13/17) Cephalexin (Verified Allergy, Unknown, Unknown, 03/13/17) Clindamycin (Verified Allergy, Unknown, Unknown, 03/13/17) Diphenhydramine (Verified Allergy, Unknown, Unknown, 03/13/17) Erythromycin (Verified Allergy, Unknown, Unknown, 03/13/17) Fluticasone (Verified Allergy, Unknown, Unknown, 03/13/17) Milk Protein Extract (Verified Allergy, Unknown, Unknown, 03/13/17) Mometasone (Verified Allergy, Unknown, Unknown, 03/13/17) Salmeterol (Verified Allergy, Unknown, Unknown, 03/13/17) [place] (Verified Allergy, Unknown, Unknown, 03/13/17) Sulfamethoxazole w/Trimethoprim (Verified Allergy, Unknown, Unknown, 03/13) Uncoded Allergies: PAPER TAPE (Allergy, Unknown, Unknown, 03/13/17) Home Medications Scheduled Aspirin (Aspirin Ec), 81 MG PO DAILY Atorvastatin (Lipitor), 20 MG PO HS Dulaglutide (Trulicity), 0.5 ML SC WK Duloxetine Hcl (Cymbalta), 120 MG PO DAILY Ferrous Sulfate (Ferrous Sulfate), 325 MG PO BID Gabapentin (Neurontin), 100 MG PO BID Insulin Glargine (Lantus Solostar), 30 UNITS SC HS Medroxyprogesterone Acetate (C (Depo-Provera Contraceptiv), 150 MG IM Q10-12 WEELKS Oxybutynin Chloride Er (Ditropan Xl), 10 MG PO QAM Pantoprazole (Protonix), 40 MG PO DAILY Ranolazine (Ranexa), 1,000 MG PO BID Scheduled PRN Albuterol Sulf (Proventil 0.083% 2.5MG/3ML), 2.5 MG INH UD PRN for SOB/Wheezing Albuterol Sulfate (Proair Respiclick), 2 PUFFS INH Q4-6HRS PRN for SOB/Wheezing Cholecalciferol (Decara), 50,000 INTER.UNIT PO WK PRN for Supplement Epinephrine (Epipen), 0.3 MG IM UD PRN for ALLERGIC REACTION Fluticasone Propionate (Nasal) (Flonase Allergy Relief), 1-2 SPRAYS CYDNEY DAILY PRN for Allergy Symptoms Furosemide (Lasix), 20 MG PO DAILY PRN for Edema/Fluid Retention Trazodone Hcl (Trazodone), 25-50 MG PO HS PRN for Sleep Current Inpatient Medications Current Inpatient Medications Medications (Trade) Dose Ordered Sig/Dana Route Start Time Stop Time Status Last Admin Dose Admin Enoxaparin Sodium (Lovenox Inj) 40 mg QPM SQ 03/13/17 23:00 04/12/17 22:59 03/14/17 21:22 40 MG Acetaminophen (Tylenol Tab) 650 mg Q4H PRN PO 03/13/17 19:45 04/12/17 19:44 03/14/17 03:48 650 MG Al Hydrox/Mg Hydrox/Simethicone (Maalox Max Susp) 15 ml Q4H PRN PO 03/13/17 19:45 04/12/17 19:44 Magnesium Hydroxide (Milk Of Magnesia Susp) 30 ml Q6H PRN PO 03/13/17 19:45 04/12/17 19:44 Ondansetron HCl (Zofran Inj) 4 mg Q6H PRN IV 03/13/17 19:45 04/12/17 19:44 Albuterol Sulfate (Ventolin 0.083% 2.5MG/3ML Neb) 2.5 mg UD PRN INH 03/13/17 19:45 04/12/17 19:44 Aspirin (Ecotrin Tab) 81 mg DAILY PO 03/14/17 09:00 04/13/17 08:59 03/15/17 08:08 81 MG Atorvastatin Calcium (Lipitor Tab) 20 mg HS PO 03/13/17 21:00 04/12/17 20:59 03/14/17 21:24 20 MG Duloxetine HCl (Cymbalta Cap) 120 mg DAILY PO 03/14/17 09:00 04/13/17 08:59 03/15/17 08:08 120 MG Epinephrine (Epipen) 0.3 mg UD PRN IM 03/13/17 19:45 04/12/17 19:44 Ferrous Sulfate (Feosol Tab) 325 mg BID PO 03/13/17 21:00 04/12/17 20:59 03/15/17 08:08 325 MG Fluticasone Propionate (Flonase Nasal [place]) 1 sprays DAILY PRN CYDNEY 03/13/17 19:45 04/12/17 19:44 Furosemide (Lasix Tab) 20 mg DAILY PRN PO 03/13/17 19:45 04/12/17 19:44 Gabapentin (Neurontin Cap) 100 mg BID PO 03/13/17 21:00 04/12/17 20:59 03/15/17 08:07 100 MG Oxybutynin Chloride (Ditropan-Xl Tab) 10 mg QAM PO 03/14/17 09:00 04/13/17 08:59 03/15/17 08:08 10 MG Pantoprazole Sodium (Protonix Tab) 40 mg DAILY PO 03/14/17 09:00 04/13/17 08:59 03/15/17 08:08 40 MG Trazodone HCl (Desyrel Tab) 25 mg HS PRN PO 03/13/17 19:45 04/12/17 19:44 Insulin Aspart (novoLOG ASPART) SLIDING SCALE G... ACHS SC 03/13/17 21:00 04/12/17 20:59 03/15/17 08:13 1 UNITS Insulin Glargine (Lantus Solostar Pen) 30 units HS SC 03/13/17 21:00 04/12/17 20:59 03/14/17 21:28 30 UNITS Miscellaneous (Iv Fluids Completed) 1 ea PRN PRN N/A 03/13/17 20:30 03/13/18 20:29 Glucose (Glucose 40% Gel) 15-30 GRAMS 15 GRAMS... UD PRN PO 03/13/17 20:45 04/12/17 20:44 Glucose (Glucose Chew Tab) 4-8 Tablets 4 Tabl... UD PRN PO 03/13/17 20:45 04/12/17 20:44 Dextrose (Dextrose 50% 50ML Syringe) 25-50ML OF 50% DW IV FOR... UD PRN IV 03/13/17 20:45 04/12/17 20:44 Glucagon (Glucagon Inj) 1 mg UD PRN SQ 03/13/17 20:45 04/12/17 20:44 Vancomycin HCl (Consult) 1 ea UD PRN N/A 03/13/17 21:15 04/12/17 21:14 Vancomycin HCl 1750 mg/Sodium Chloride 535 ml @ 200 mls/hr Q12H IV 03/14/17 04:00 03/24/17 03:59 03/15/17 04:18 200 MLS/HR Ranolazine (Ranexa ER Tab) 1,000 mg BID PO 03/14/17 09:00 04/13/17 08:59 03/15/17 08:07 1,000 MG Review of Systems Constitutional: + fever Abdomen: + pain, + problem reported (cellultitis right abdomen) Physical Exam Date Time Temp Pulse Resp B/P (MAP) Pulse Ox O2 Delivery O2 Flow Rate FiO2 03/15/17 08:45 Room Air 03/15/17 07:13 36.8 83 20 102/63 (76) 94 Room Air 03/15/17 00:05 Room Air 03/14/17 22:56 37.0 88 19 124/70 (88) 96 Room Air 03/14/17 20:05 Room Air 03/14/17 16:45 Room Air 03/14/17 15:04 36.8 83 18 102/68 (79) 97 Room Air General Appearance: + mild distress Head: normocephalic, atraumatic Eyes: EOMI, sclerae normal ENT: hearing grossly normal Neck: supple, no JVD Respiratory/Chest: no respiratory distress, no accessory muscle use Abdomen/GI: soft, + pertinent finding (large area of cellulitis right mid to lower abdomen. very tender/hot to touch. central area of abcess with skin intact. ) Extremities/Musculoskelatal: + pertinent finding (left axillary cysts with sinus tracts c/w hydradenitis. no active inflammation/infection) Neurologic/Psych: alert, oriented x 3 Skin: + pertinent finding (see abdominal exam) Laboratory Results Last 24 Hours Test 03/14/17 11:19 03/14/17 16:18 03/14/17 20:00 03/15/17 06:39 Bedside Glucose 176 mg/dl 151 mg/dl 175 mg/dl White Blood Count 8.60 K/uL Red Blood Count 4.10 M/uL Hemoglobin 11.7 g/dL Hematocrit 35.6 % Mean Corpuscular Volume 86.8 fL Mean Corpuscular Hemoglobin 28.5 pg Mean Corpuscular Hemoglobin Concent 32.9 g/dl Platelet Count 188 K/uL Mean Platelet Volume 10.9 fL Neutrophils (%) (Auto) 73.0 % Lymphocytes (%) (Auto) 16.9 % Monocytes (%) (Auto) 7.3 % Eosinophils (%) (Auto) 2.6 % Basophils (%) (Auto) 0.1 % Neutrophils # (Auto) 6.28 K/uL Lymphocytes # (Auto) 1.45 K/uL Monocytes # (Auto) 0.63 K/uL Eosinophils # (Auto) 0.22 K/uL Basophils # (Auto) 0.01 K/uL RDW Standard Deviation 43.7 fL RDW Coefficient of Variation 13.8 % Immature Granulocyte % (Auto) 0.1 % Immature Granulocyte # (Auto) 0.01 K/uL Sodium Level 139 mmol/L Potassium Level 3.7 mmol/L Chloride Level 109 mmol/L Carbon Dioxide Level 23 mmol/L Anion Gap 7.0 mmol/L Blood Urea Nitrogen 6 mg/dl Creatinine 0.64 mg/dl Est Creatinine Clear Calc Drug Dose 168.1 ml/min Estimated GFR () 121.4 Estimated GFR (Non- 104.8 BUN/Creatinine Ratio 8.9 Random Glucose 191 mg/dl Calcium Level 8.1 mg/dl Test 03/15/17 07:25 Bedside Glucose 163 mg/dl Assessment & Plan 1.abdominal wall cellulitis with abcess in diabetic will take to OR for drainage today discussed risks/options/answered questions pt agreeable 2. left axillary hydradenitis chronic with no acute infection. nothing to do now
--- NOTE | 2017-03-15 11:25 | Family Medicine Progress Note ---
Progress Note Date of Service Mar 15, 2017. Subjective Pt evaluation today including: conversation w/ patient, physical exam, chart review, lab review Pain: mild discomfort at site of cellulitis PO Intake: tolerating Voiding: no voiding problems Current Inpatient Medications Medications (Trade) Dose Ordered Sig/Dana Route Start Time Stop Time Status Last Admin Dose Admin Enoxaparin Sodium (Lovenox Inj) 40 mg QPM SQ 03/13/17 23:00 04/12/17 22:59 03/14/17 21:22 40 MG Acetaminophen (Tylenol Tab) 650 mg Q4H PRN PO 03/13/17 19:45 04/12/17 19:44 03/14/17 03:48 650 MG Al Hydrox/Mg Hydrox/Simethicone (Maalox Max Susp) 15 ml Q4H PRN PO 03/13/17 19:45 04/12/17 19:44 Magnesium Hydroxide (Milk Of Magnesia Susp) 30 ml Q6H PRN PO 03/13/17 19:45 04/12/17 19:44 Ondansetron HCl (Zofran Inj) 4 mg Q6H PRN IV 03/13/17 19:45 04/12/17 19:44 Albuterol Sulfate (Ventolin 0.083% 2.5MG/3ML Neb) 2.5 mg UD PRN INH 03/13/17 19:45 04/12/17 19:44 Aspirin (Ecotrin Tab) 81 mg DAILY PO 03/14/17 09:00 04/13/17 08:59 03/15/17 08:08 81 MG Atorvastatin Calcium (Lipitor Tab) 20 mg HS PO 03/13/17 21:00 04/12/17 20:59 03/14/17 21:24 20 MG Duloxetine HCl (Cymbalta Cap) 120 mg DAILY PO 03/14/17 09:00 04/13/17 08:59 03/15/17 08:08 120 MG Epinephrine (Epipen) 0.3 mg UD PRN IM 03/13/17 19:45 04/12/17 19:44 Ferrous Sulfate (Feosol Tab) 325 mg BID PO 03/13/17 21:00 04/12/17 20:59 03/15/17 08:08 325 MG Fluticasone Propionate (Flonase Nasal [place]) 1 sprays DAILY PRN CYDNEY 03/13/17 19:45 04/12/17 19:44 Furosemide (Lasix Tab) 20 mg DAILY PRN PO 03/13/17 19:45 04/12/17 19:44 Gabapentin (Neurontin Cap) 100 mg BID PO 03/13/17 21:00 04/12/17 20:59 03/15/17 08:07 100 MG Oxybutynin Chloride (Ditropan-Xl Tab) 10 mg QAM PO 03/14/17 09:00 04/13/17 08:59 03/15/17 08:08 10 MG Pantoprazole Sodium (Protonix Tab) 40 mg DAILY PO 03/14/17 09:00 04/13/17 08:59 03/15/17 08:08 40 MG Trazodone HCl (Desyrel Tab) 25 mg HS PRN PO 03/13/17 19:45 04/12/17 19:44 Insulin Aspart (novoLOG ASPART) SLIDING SCALE G... ACHS SC 03/13/17 21:00 04/12/17 20:59 03/15/17 08:13 1 UNITS Insulin Glargine (Lantus Solostar Pen) 30 units HS SC 03/13/17 21:00 04/12/17 20:59 03/14/17 21:28 30 UNITS Miscellaneous (Iv Fluids Completed) 1 ea PRN PRN N/A 03/13/17 20:30 03/13/18 20:29 Glucose (Glucose 40% Gel) 15-30 GRAMS 15 GRAMS... UD PRN PO 03/13/17 20:45 04/12/17 20:44 Glucose (Glucose Chew Tab) 4-8 Tablets 4 Tabl... UD PRN PO 03/13/17 20:45 04/12/17 20:44 Dextrose (Dextrose 50% 50ML Syringe) 25-50ML OF 50% DW IV FOR... UD PRN IV 03/13/17 20:45 04/12/17 20:44 Glucagon (Glucagon Inj) 1 mg UD PRN SQ 03/13/17 20:45 04/12/17 20:44 Vancomycin HCl (Consult) 1 ea UD PRN N/A 03/13/17 21:15 04/12/17 21:14 Vancomycin HCl 1750 mg/Sodium Chloride 535 ml @ 200 mls/hr Q12H IV 03/14/17 04:00 03/24/17 03:59 03/15/17 04:18 200 MLS/HR Ranolazine (Ranexa ER Tab) 1,000 mg BID PO 03/14/17 09:00 04/13/17 08:59 03/15/17 08:07 1,000 MG Constitutional: No fever Respiratory: No shortness of breath Cardiovascular: No chest pain Abdomen: + pain (at site of abdominal wall cellulitis), No nausea, No vomiting Female : No dysuria Skin: + new/changing skin lesions Medications Current Inpatient Medications Medications (Trade) Dose Ordered Sig/Dana Route Start Time Stop Time Status Last Admin Dose Admin Enoxaparin Sodium (Lovenox Inj) 40 mg QPM SQ 03/13/17 23:00 04/12/17 22:59 03/14/17 21:22 40 MG Acetaminophen (Tylenol Tab) 650 mg Q4H PRN PO 03/13/17 19:45 04/12/17 19:44 03/14/17 03:48 650 MG Al Hydrox/Mg Hydrox/Simethicone (Maalox Max Susp) 15 ml Q4H PRN PO 03/13/17 19:45 04/12/17 19:44 Magnesium Hydroxide (Milk Of Magnesia Susp) 30 ml Q6H PRN PO 03/13/17 19:45 04/12/17 19:44 Ondansetron HCl (Zofran Inj) 4 mg Q6H PRN IV 03/13/17 19:45 04/12/17 19:44 Albuterol Sulfate (Ventolin 0.083% 2.5MG/3ML Neb) 2.5 mg UD PRN INH 03/13/17 19:45 04/12/17 19:44 Aspirin (Ecotrin Tab) 81 mg DAILY PO 03/14/17 09:00 04/13/17 08:59 03/15/17 08:08 81 MG Atorvastatin Calcium (Lipitor Tab) 20 mg HS PO 03/13/17 21:00 04/12/17 20:59 03/14/17 21:24 20 MG Duloxetine HCl (Cymbalta Cap) 120 mg DAILY PO 03/14/17 09:00 04/13/17 08:59 03/15/17 08:08 120 MG Epinephrine (Epipen) 0.3 mg UD PRN IM 03/13/17 19:45 04/12/17 19:44 Ferrous Sulfate (Feosol Tab) 325 mg BID PO 03/13/17 21:00 04/12/17 20:59 03/15/17 08:08 325 MG Fluticasone Propionate (Flonase Nasal [place]) 1 sprays DAILY PRN CYDNEY 03/13/17 19:45 04/12/17 19:44 Furosemide (Lasix Tab) 20 mg DAILY PRN PO 03/13/17 19:45 04/12/17 19:44 Gabapentin (Neurontin Cap) 100 mg BID PO 03/13/17 21:00 04/12/17 20:59 03/15/17 08:07 100 MG Oxybutynin Chloride (Ditropan-Xl Tab) 10 mg QAM PO 03/14/17 09:00 04/13/17 08:59 03/15/17 08:08 10 MG Pantoprazole Sodium (Protonix Tab) 40 mg DAILY PO 03/14/17 09:00 04/13/17 08:59 03/15/17 08:08 40 MG Trazodone HCl (Desyrel Tab) 25 mg HS PRN PO 03/13/17 19:45 04/12/17 19:44 Insulin Aspart (novoLOG ASPART) SLIDING SCALE G... ACHS SC 03/13/17 21:00 04/12/17 20:59 03/15/17 08:13 1 UNITS Insulin Glargine (Lantus Solostar Pen) 30 units HS SC 03/13/17 21:00 04/12/17 20:59 03/14/17 21:28 30 UNITS Miscellaneous (Iv Fluids Completed) 1 ea PRN PRN N/A 03/13/17 20:30 03/13/18 20:29 Glucose (Glucose 40% Gel) 15-30 GRAMS 15 GRAMS... UD PRN PO 03/13/17 20:45 04/12/17 20:44 Glucose (Glucose Chew Tab) 4-8 Tablets 4 Tabl... UD PRN PO 03/13/17 20:45 04/12/17 20:44 Dextrose (Dextrose 50% 50ML Syringe) 25-50ML OF 50% DW IV FOR... UD PRN IV 03/13/17 20:45 04/12/17 20:44 Glucagon (Glucagon Inj) 1 mg UD PRN SQ 03/13/17 20:45 04/12/17 20:44 Vancomycin HCl (Consult) 1 ea UD PRN N/A 03/13/17 21:15 04/12/17 21:14 Vancomycin HCl 1750 mg/Sodium Chloride 535 ml @ 200 mls/hr Q12H IV 03/14/17 04:00 03/24/17 03:59 03/15/17 04:18 200 MLS/HR Ranolazine (Ranexa ER Tab) 1,000 mg BID PO 03/14/17 09:00 04/13/17 08:59 03/15/17 08:07 1,000 MG Objective Vital Signs Date Time Temp Pulse Resp B/P (MAP) Pulse Ox O2 Delivery O2 Flow Rate FiO2 03/15/17 08:45 Room Air 03/15/17 07:13 36.8 83 20 102/63 (76) 94 Room Air 03/15/17 00:05 Room Air 03/14/17 22:56 37.0 88 19 124/70 (88) 96 Room Air 03/14/17 20:05 Room Air 03/14/17 16:45 Room Air 03/14/17 15:04 36.8 83 18 102/68 (79) 97 Room Air Physical Exam General Appearance: no apparent distress Eyes: normal inspection Neck: supple Respiratory/Chest: lungs clear, normal breath sounds Cardiovascular: regular rate, rhythm, no edema Abdomen: normal bowel sounds, soft, + pertinent finding (R lateral abdominal wall tenderness, and erythema with extending margins and central area of abscess with intact skin) Neurologic/Psychiatric: alert, oriented x 3 Skin: + pertinent finding (L axillary region induration and mild erythema) Laboratory Results 03/15/17 06:39 Red Blood Count 4.10, Mean Corpuscular Volume 86.8, Mean Corpuscular Hemoglobin 28.5, Mean Corpuscular Hemoglobin Concent 32.9, Mean Platelet Volume 10.9, Neutrophils (%) (Auto) 73.0, Lymphocytes (%) (Auto) 16.9, Monocytes (%) (Auto) 7.3, Eosinophils (%) (Auto) 2.6, Basophils (%) (Auto) 0.1, Neutrophils # (Auto) 6.28, Lymphocytes # (Auto) 1.45, Monocytes # (Auto) 0.63, Eosinophils # (Auto) 0.22, Basophils # (Auto) 0.01 03/15/17 06:39 Test 03/15/17 06:39 03/15/17 07:25 White Blood Count 8.60 K/uL (4.8-10.8) Red Blood Count 4.10 M/uL (4.2-5.4) Hemoglobin 11.7 g/dL (12.0-16.0) Hematocrit 35.6 % (37-47) Mean Corpuscular Volume 86.8 fL (80-100) Mean Corpuscular Hemoglobin 28.5 pg (25-34) Mean Corpuscular Hemoglobin Concent 32.9 g/dl (32-36) Platelet Count 188 K/uL (130-400) Mean Platelet Volume 10.9 fL (7.4-10.4) Neutrophils (%) (Auto) 73.0 % Lymphocytes (%) (Auto) 16.9 % Monocytes (%) (Auto) 7.3 % Eosinophils (%) (Auto) 2.6 % Basophils (%) (Auto) 0.1 % Neutrophils # (Auto) 6.28 K/uL (1.4-6.5) Lymphocytes # (Auto) 1.45 K/uL (1.2-3.4) Monocytes # (Auto) 0.63 K/uL (0.11-0.59) Eosinophils # (Auto) 0.22 K/uL (0-0.5) Basophils # (Auto) 0.01 K/uL (0-0.2) RDW Standard Deviation 43.7 fL (36.4-46.3) RDW Coefficient of Variation 13.8 % (11.5-14.5) Immature Granulocyte % (Auto) 0.1 % Immature Granulocyte # (Auto) 0.01 K/uL (0.00-0.02) Anion Gap 7.0 mmol/L (3-11) Est Creatinine Clear Calc Drug Dose 168.1 ml/min Estimated GFR () 121.4 Estimated GFR (Non- 104.8 BUN/Creatinine Ratio 8.9 (10-20) Calcium Level 8.1 mg/dl (8.5-10.1) Bedside Glucose 163 mg/dl (70-90) Assessment and Plan 51 yoF with hx DM-insulin dependent, neuropathy, varicose veins, HLD, asthma, depression, overactive bladder and hx of previous MRSA infection who presented with R lateral abdominal wall and L axillary region erythema/induration x 5 days consistent with cellulitis based on ultrasound. AFVSS. WBC resolved but clinically worse. On IV Vanc. Scheduled for I&D of abdominal wall abscess with surgery today Right lateral abdominal wall and L axillary region cellulitis - abdominal wall cellulitis - central area of abscess with intact skin and mild extension beyond margins drawn noted this AM. L axillary region induration with mild erythema. AFVSS - general surgery consulted - scheduled for I&D today - US: soft tissue edema consistent with cellulitis, no drainable abscess - 03/13 - WBC normalized 13.45 -> 8.60 this AM - Lactate 1 - BCx NGTD - Continue IV Vanc to cover for MRSA - Once clinically improved transition to doxycycline (allergic to multiple abx) will cover MRSA Diabetes - ISS - Lantus 30 HS - Accu-checks Neuropathy - Gabapentin CAD/LE edema/?CHF - Continue ASA, Lasix, lipitor - Continue Ranolazine Asthma - Continue albuterol GERD - Protonix Overactive bladder - Oxybutynin Depression/insomnia - Duloxetine - Trazadone DVT prophylaxis - Lovenox Full Code Continued [facility] stay due to: other (pending clinical improvement ) Discharge planning: home Resident Involvement: Resident Care Provided Care Provided: Adult Hospital Medicine Reviewed: Pt Seen/Exam by Me History right flank red area still painful. left armpit still painful Constitutional: denies: fever Respiratory: negative: short of breath Cardiovascular: denies chest pain General Appearance: no apparent distress Respiratory: lungs clear, no respiratory distress Cardiovascular: regular rate, rhythm Neurologic/Psychiatric: alert, oriented x 3 Skin Characteristics: other (right flank skin erythema same. induration worse. central area with pus pointing. left axilla with deep swelling and induration) Assessment/Plan Resident Physician Supervision Note: I independently interviewed and examined the patient and verified the rodriguez history and physical, reviewed labs and image studies, discussed the case with the resident Dr. Ellison and agree with the findings and care plan.
[2017-03-15] MEDS ORDERED: KETAMINE HCL INJ 50 MG/ML 10 ML VIAL ONE (12:54)
[2017-03-15] MEDS ORDERED: FENTANYL CITRATE INJ 50 MCG/1 ML 2 ML VIAL ONE (12:55)
[2017-03-15] MEDS ORDERED: MIDAZOLAM HCL 1 MG/ML 2ML VIAL ONE (12:55)
[2017-03-15] MEDS ORDERED: ONDANSETRON INJ 2 MG/ML 2 ML VIAL IV PRN (13:45)
[2017-03-15] MEDS ORDERED: ATROPINE SULFATE 0.1 MG/ML 5ML SYR IV PRN (13:45)
[2017-03-15] MEDS ORDERED: LABETALOL HCL IV 5 MG/ML 20ML IV PRN (13:45)
[2017-03-15] MEDS ORDERED: FLUMAZENIL 0.1 MG/1 ML 10 ML VIAL IV PRN (13:45)
[2017-03-15] MEDS ORDERED: PROMETHAZINE HCL INJ 12.5 MG in SODIUM CHLORIDE 0.9% 50ML 50 ML IV PRN (13:45)
[2017-03-15] MEDS ORDERED: NALOXONE HCL 0.4 MG/1 ML VIAL/CARP IV PRN (13:45)
[2017-03-15] MEDS ORDERED: FENTANYL CITRATE INJ 50 MCG/1 ML 2 ML VIAL IV PRN (13:45)
--- NOTE | 2017-03-15 13:55 | [facility] Operative Report ---
Operative Report Operative Date Mar 15, 2017. Pre-Operative Diagnosis RIGHT ABDOMINAL WALL ABCESS Post-Operative Diagnosis SAME PREOP Procedure(s) Performed INCISION AND DRAINAGE RIGHT ABDOMINAL WALL ABCESS Surgeon DR. Pamella BURNHAM Estimated Blood Loss 20ml Findings abdominal wall abcess Specimens 1.AEROBES, ANAEROBES, GRAM STAIN, CULTURE AND SENSITIVITY Anesthesia MAC Disposition Recovery Room / PACU Description of Procedure After informed consent was obtained the patient was taken to the operating suite and placed in supine position. IV sedation was administered by anesthesia and titrated to effect. After adequate sedation was obtained, the abdomen was sterilely prepped and draped and an 11 blade scalpel was used to make an incision directly over the visible abcess. Blunt finger fractionation was used and a deep abcess cavity was entered. we obtained a moderate amount of pus. A specimen was sent for gram stain, culture and sensitivity. The would was thoroughly irrigated and packed with 1/2 inch plain packing. A sterile dressing was applied. The patient was awakened and transferred to recovery in stable condition. I attest to the content of the Intraoperative Record and any orders documented therein. Any exceptions are noted below.
--- NOTE | 2017-03-15 14:16 | Anesthesiology Progress Note ---
Anesthesia Post Op Note Date & Time Mar 15, 2017 at 14:16 Vital Signs Pain Intensity: 0 Vital Signs Past 12 Hours Date Time Temp Pulse Resp B/P (MAP) Pulse Ox O2 Delivery O2 Flow Rate FiO2 03/15/17 14:10 36.9 86 20 116/66 95 Room Air 03/15/17 14:00 84 20 113/72 94 Room Air 03/15/17 13:51 36.9 89 20 117/79 95 Room Air 03/15/17 08:45 Room Air 03/15/17 07:13 36.8 83 20 102/63 (76) 94 Room Air Notes Mental Status: alert / awake / arousable, participated in evaluation Pt Amnestic to Procedure: Yes Nausea / Vomiting: adequately controlled Pain: adequately controlled Airway Patency, RR, SpO2: stable & adequate BP & HR: stable & adequate Hydration State: stable & adequate Anesthetic Complications: no major complications apparent
[2017-03-15 14:25] VITALS: BP 102/66; PULSE 84; TEMP 37.1; O2SAT 95
[2017-03-15 14:58] VITALS: BP 117/64; PULSE 89; O2SAT 96
[2017-03-15 15:25] VITALS: BP 130/69; PULSE 85; TEMP 36.9; O2SAT 94
[2017-03-15] MEDS ORDERED: VANCOMYCIN TROUGH ONE (15:30)
[2017-03-15 16:22] VITALS: BP 112/64; PULSE 82; TEMP 37.1; O2SAT 95
[2017-03-15] MEDS: INSULIN GLARGINE SOLOSTAR 100 UNITS/ML 3 ML PEN SC SCH (21:17)
[2017-03-15] MEDS: ENOXAPARIN 40 MG/0.4 ML SYR SQ SCH (21:17)
[2017-03-15] MEDS: ATORVASTATIN 20 MG TAB PO SCH (21:20)
[2017-03-15 23:02] VITALS: BP 99/56; PULSE 85; TEMP 36.8; O2SAT 97
[2017-03-16] MEDS: VANCOMYCIN INJ 1,750 MG in SODIUM CHLORIDE 0.9% 500ML 500 ML IV SCH ×2 (04:37→16:34)
[2017-03-16 05:46] LABS: BASO % 0.1 %; BASO ABS # 0.01 K/uL (0-0.2); COMPLETE YES; EOS % 2.9 %; HEMATOCRIT 34.3 % (37-47); IG% 0.1 %; LYMPH % 21.3 %; LYMPH ABS # 1.47 K/uL (1.2-3.4); MEAN CELL VOLUME 86.8 fL (80-100); MEAN CORPUSCULAR HEMOGLOBIN 29.4 pg (25-34); MEAN CORPUSCULAR HGB CONC 33.8 g/dl (32-36); MEAN PLATELET VOLUME 10.4 fL (7.4-10.4); MONO % 8.1 %; NEUT % 67.5 %; PLATELET COUNT 175 K/uL (130-400); RED BLOOD COUNT 3.95 M/uL (4.2-5.4); WHITE BLOOD COUNT 6.89 K/uL (4.8-10.8)
[2017-03-16 06:10] LABS: BUN/CREATININE RATIO 11.3 (10-20); CALCIUM 8.1 mg/dl (8.5-10.1); CREATININE 0.61 mg/dl (0.60-1.20); POTASSIUM 3.7 mmol/L (3.5-5.1)
--- NOTE | 2017-03-16 06:48 | Family Medicine Progress Note ---
Progress Note Date of Service Mar 16, 2017. Subjective Pt evaluation today including: conversation w/ patient, physical exam, chart review, lab review, review of studies Pain: controlled Voiding: no voiding problems Pt reports she is feeling better than she did on admission. Says pain in her abdominal skin is improving, although still painful at times with movement. 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 No events over night. Constitutional: No fever, No chills Cardiovascular: + orthopnea (pt states she needs several pillows to sleep on at night), No chest pain Abdomen: No pain, No nausea, No vomiting, No diarrhea, No constipation Objective Physical Exam General Appearance: WD/WN, no apparent distress, + obese Eyes: normal inspection, EOMI Respiratory/Chest: chest non-tender, lungs clear, normal breath sounds, no respiratory distress Cardiovascular: regular rate, rhythm, no edema, no gallop, no JVD, no murmur, + pertinent finding (pulses present throughout.) Abdomen: normal bowel sounds, non tender, soft Extremities: normal range of motion, + pertinent finding (raised subcutaneous nodule in LT axillary area, non draining) Neurologic/Psychiatric: normal mood/affect, oriented x 3 Skin: warm/dry, + pertinent finding (RT abdominal wall in mid axillary line has 4 cm incised area surrounded by local swelling and erythema, covered with wound care bandage. Also, b/l LE + for stasis dermatitis, varicose veins) Assessment and Plan 51F here for RT abdominal wall cellulitis, with PMH insulin dependent diabetes mellitus, CAD, asthma, depression. Hospital Day: 3 (03/16) Right lateral abdominal wall and L axillary region cellulitis - Ongoing wound care - Continue Vancomycin HCl 1750 mg/Sodium Chloride, 535 ml @ 200 mls/hr Q12H IV - 03/16 is day 3 of therapy. - Sensitivities pending. - pain improving (last tylenol dose 03/14) - ordered warm compress for LT axillary region Diabetes - continue Insulin Glargine (Lantus Solostar Pen) - continue Insulin Aspart (novoLOG ASPART) Neuropathy - continue Gabapentin 100 BID CAD/LE edema/?CHF - pt states she visited her adapted physical education teacher in [place] last week, with no new recommendations or change in treatment. - continue ASA 81 mg, Atorvastatin 20mg OD, - Furosemide 20 PRN - for angina, continue Ranolazine (Ranexa ER Tab) 1000mg BID Asthma - albuterol PRN Allergies - Epipen prn - fluticasone nasal spray PRN GERD - continue pantoprazole 40 mg daily Overactive bladder - continue Oxybutynin Chloride (Ditropan-Xl Tab) QAM Depression/insomnia - continue cymbalta 120mg daily Anemia - continue ferrous sulfate 325 mg OD DVT prophylaxis - Lovenox 40mg QPM Insomnia - trazodone 25mg PRN Full Code Dispo: home Current Inpatient Medications Medications (Trade) Dose Ordered Sig/Dana Route Start Time Stop Time Status Last Admin Dose Admin Enoxaparin Sodium (Lovenox Inj) 40 mg QPM SQ 03/13/17 23:00 04/12/17 22:59 03/15/17 21:17 40 MG Acetaminophen (Tylenol Tab) 650 mg Q4H PRN PO 03/13/17 19:45 04/12/17 19:44 03/14/17 03:48 650 MG Al Hydrox/Mg Hydrox/Simethicone (Maalox Max Susp) 15 ml Q4H PRN PO 03/13/17 19:45 04/12/17 19:44 Magnesium Hydroxide (Milk Of Magnesia Susp) 30 ml Q6H PRN PO 03/13/17 19:45 04/12/17 19:44 Ondansetron HCl (Zofran Inj) 4 mg Q6H PRN IV 03/13/17 19:45 04/12/17 19:44 Albuterol Sulfate (Ventolin 0.083% 2.5MG/3ML Neb) 2.5 mg UD PRN INH 03/13/17 19:45 04/12/17 19:44 Aspirin (Ecotrin Tab) 81 mg DAILY PO 03/14/17 09:00 04/13/17 08:59 03/15/17 08:08 81 MG Atorvastatin Calcium (Lipitor Tab) 20 mg HS PO 03/13/17 21:00 04/12/17 20:59 03/15/17 21:20 20 MG Duloxetine HCl (Cymbalta Cap) 120 mg DAILY PO 03/14/17 09:00 04/13/17 08:59 03/15/17 08:08 120 MG Epinephrine (Epipen) 0.3 mg UD PRN IM 03/13/17 19:45 04/12/17 19:44 Ferrous Sulfate (Feosol Tab) 325 mg BID PO 03/13/17 21:00 04/12/17 20:59 03/15/17 21:20 325 MG Fluticasone Propionate (Flonase Nasal [place]) 1 sprays DAILY PRN CYDNEY 03/13/17 19:45 04/12/17 19:44 Furosemide (Lasix Tab) 20 mg DAILY PRN PO 03/13/17 19:45 04/12/17 19:44 Gabapentin (Neurontin Cap) 100 mg BID PO 03/13/17 21:00 04/12/17 20:59 03/15/17 21:19 100 MG Oxybutynin Chloride (Ditropan-Xl Tab) 10 mg QAM PO 03/14/17 09:00 04/13/17 08:59 03/15/17 08:08 10 MG Pantoprazole Sodium (Protonix Tab) 40 mg DAILY PO 03/14/17 09:00 04/13/17 08:59 03/15/17 08:08 40 MG Trazodone HCl (Desyrel Tab) 25 mg HS PRN PO 03/13/17 19:45 04/12/17 19:44 Insulin Aspart (novoLOG ASPART) SLIDING SCALE G... ACHS SC 03/13/17 21:00 04/12/17 20:59 03/15/17 21:16 2 UNITS Insulin Glargine (Lantus Solostar Pen) 30 units HS SC 03/13/17 21:00 04/12/17 20:59 03/15/17 21:17 30 UNITS Miscellaneous (Iv Fluids Completed) 1 ea PRN PRN N/A 03/13/17 20:30 03/13/18 20:29 Glucose (Glucose 40% Gel) 15-30 GRAMS 15 GRAMS... UD PRN PO 03/13/17 20:45 04/12/17 20:44 Glucose (Glucose Chew Tab) 4-8 Tablets 4 Tabl... UD PRN PO 03/13/17 20:45 04/12/17 20:44 Dextrose (Dextrose 50% 50ML Syringe) 25-50ML OF 50% DW IV FOR... UD PRN IV 03/13/17 20:45 04/12/17 20:44 Glucagon (Glucagon Inj) 1 mg UD PRN SQ 03/13/17 20:45 04/12/17 20:44 Vancomycin HCl (Consult) 1 ea UD PRN N/A 03/13/17 21:15 04/12/17 21:14 Vancomycin HCl 1750 mg/Sodium Chloride 535 ml @ 200 mls/hr Q12H IV 03/14/17 04:00 03/24/17 03:59 03/16/17 04:37 200 MLS/HR Ranolazine (Ranexa ER Tab) 1,000 mg BID PO 03/14/17 09:00 04/13/17 08:59 03/15/17 21:15 1,000 MG Resident Tracking Resident Involvement: Resident Care Provided Care Provided: Adult Hospital Medicine
[2017-03-16] MEDS: INSULIN ASPART 100 UNITS/ML 3 ML PEN SC SCH ×4 (07:25→21:35)
[2017-03-16 07:30] VITALS: BP 101/62; PULSE 84; TEMP 36.9; O2SAT 98
[2017-03-16] MEDS: GABAPENTIN 100 MG CAP PO SCH ×2 (08:01→21:31)
[2017-03-16] MEDS: RANOLAZINE 500 MG ER TAB PO SCH ×2 (08:01→21:31)
[2017-03-16] MEDS: ASPIRIN 81 MG ECTAB PO SCH (08:02)
[2017-03-16] MEDS: OXYBUTYNIN CHLORIDE 5 MG TABCR PO SCH (08:02)
[2017-03-16] MEDS: PANTOprazole SOD 40 MG TAB PO SCH (08:02)
[2017-03-16] MEDS: DULOXETINE HCL 60 MG CAP PO SCH (08:02)
[2017-03-16] MEDS: FERROUS SULFATE 325 MG TAB PO SCH ×2 (08:02→21:31)
[2017-03-16 11:20] LABS: ESTIMATED AVERAGE GLUCOSE 151 mg/dl; HA1C FLAG Normal (Normal)
[2017-03-16 11:30] VITALS: Ht 165.1 cm; Wt 164.9 kg
--- NOTE | 2017-03-16 11:54 | Surgery Progress Note ---
Surgery Progress Note Date of Service Mar 16, 2017. Subjective Post OP Day: 1 feeling better. much less pain at abcess site today. Objective Vital Signs: Date Time Temp Pulse Resp B/P (MAP) Pulse Ox O2 Delivery O2 Flow Rate FiO2 03/16/17 07:30 98 Room Air 03/16/17 07:30 36.9 84 18 101/62 (75) 98 Room Air 03/16/17 00:05 Room Air 03/15/17 23:02 36.8 85 18 99/56 (70) 97 Room Air 03/15/17 20:02 Room Air 03/15/17 16:22 37.1 82 18 112/64 (80) 95 Room Air 03/15/17 16:00 Room Air 03/15/17 15:25 36.9 85 18 130/69 (89) 94 Room Air 03/15/17 14:58 89 20 117/64 (81) 96 Room Air 03/15/17 14:25 37.1 84 18 102/66 (78) 95 Room Air 03/15/17 14:10 36.9 86 20 116/66 95 Room Air 03/15/17 14:00 84 20 113/72 94 Room Air 03/15/17 13:51 36.9 89 20 117/79 95 Room Air General Appearance: no apparent distress Abdomen: + pertinent finding (unable to exam as patient in bathroom...verbal discussio only. ) Laboratory Results: Results Past 24 Hours Test 03/15/17 14:01 03/15/17 15:28 03/15/17 20:01 03/16/17 05:25 Range/Units Bedside Glucose 137 187 70-90 mg/dl Vancomycin Level Trough 9.5 SEE COMMENT mcg/ml White Blood Count 6.89 4.8-10.8 K/uL Red Blood Count 3.95 4.2-5.4 M/uL Hemoglobin 11.6 12.0-16.0 g/dL Hematocrit 34.3 37-47 % Mean Corpuscular Volume 86.8 80-100 fL Mean Corpuscular Hemoglobin 29.4 25-34 pg Mean Corpuscular Hemoglobin Concent 33.8 32-36 g/dl Platelet Count 175 130-400 K/uL Mean Platelet Volume 10.4 7.4-10.4 fL Neutrophils (%) (Auto) 67.5 % Lymphocytes (%) (Auto) 21.3 % Monocytes (%) (Auto) 8.1 % Eosinophils (%) (Auto) 2.9 % Basophils (%) (Auto) 0.1 % Neutrophils # (Auto) 4.64 1.4-6.5 K/uL Lymphocytes # (Auto) 1.47 1.2-3.4 K/uL Monocytes # (Auto) 0.56 0.11-0.59 K/uL Eosinophils # (Auto) 0.20 0-0.5 K/uL Basophils # (Auto) 0.01 0-0.2 K/uL RDW Standard Deviation 44.1 36.4-46.3 fL RDW Coefficient of Variation 13.7 11.5-14.5 % Immature Granulocyte % (Auto) 0.1 % Immature Granulocyte # (Auto) 0.01 0.00-0.02 K/uL Sodium Level 141 136-145 mmol/L Potassium Level 3.7 3.5-5.1 mmol/L Chloride Level 108 98-107 mmol/L Carbon Dioxide Level 24 21-32 mmol/L Anion Gap 9.0 3-11 mmol/L Blood Urea Nitrogen 7 7-18 mg/dl Creatinine 0.61 0.60-1.20 mg/dl Est Creatinine Clear Calc Drug Dose 176.4 ml/min Estimated GFR () 123.4 Estimated GFR (Non- 106.5 BUN/Creatinine Ratio 11.3 10-20 Random Glucose 185 70-99 mg/dl Estimated Average Glucose 151 mg/dl Hemoglobin A1c 6.9 4.5-5.6 % Calcium Level 8.1 8.5-10.1 mg/dl Test 03/16/17 07:15 Range/Units Bedside Glucose 158 70-90 mg/dl Microbiology Results 03/15/17 Gram Stain - Final, Resulted 03/15/17 Bacterial Culture - Preliminary, Resulted Staphylococcus Aureus Assessment & Plan clinically doing much better will need home nursing at d/c for wound care will continue to follow while she is in the hospital.
[2017-03-16 15:43] VITALS: BP 112/80; PULSE 82; TEMP 36.7; O2SAT 95
[2017-03-16 16:00] VITALS: O2SAT 95
[2017-03-16] MEDS: ENOXAPARIN 40 MG/0.4 ML SYR SQ SCH (21:30)
[2017-03-16] MEDS: ATORVASTATIN 20 MG TAB PO SCH (21:31)
[2017-03-16] MEDS: INSULIN GLARGINE SOLOSTAR 100 UNITS/ML 3 ML PEN SC SCH (21:35)
[2017-03-17 00:06] VITALS: BP 119/72; PULSE 74; TEMP 37; O2SAT 95
[2017-03-17] MEDS: VANCOMYCIN INJ 1,750 MG in SODIUM CHLORIDE 0.9% 500ML 500 ML IV SCH (04:06)
[2017-03-17 05:47] LABS: HEMATOCRIT 36.4 % (37-47); MEAN CELL VOLUME 86.9 fL (80-100); MEAN CORPUSCULAR HEMOGLOBIN 29.4 pg (25-34); MEAN CORPUSCULAR HGB CONC 33.8 g/dl (32-36); MEAN PLATELET VOLUME 10.2 fL (7.4-10.4); PLATELET COUNT 211 K/uL (130-400); RED BLOOD COUNT 4.19 M/uL (4.2-5.4); WHITE BLOOD COUNT 6.39 K/uL (4.8-10.8)
[2017-03-17 06:14] LABS: CREATININE 0.69 mg/dl (0.60-1.20)
[2017-03-17 07:30] VITALS: BP 123/80; PULSE 78; TEMP 37.1; O2SAT 95
[2017-03-17] MEDS: INSULIN ASPART 100 UNITS/ML 3 ML PEN SC SCH ×2 (07:40→11:57)
[2017-03-17 08:00] VITALS: O2SAT 95
[2017-03-17] MEDS: RANOLAZINE 500 MG ER TAB PO SCH (08:43)
[2017-03-17] MEDS: FERROUS SULFATE 325 MG TAB PO SCH (08:43)
[2017-03-17] MEDS: ASPIRIN 81 MG ECTAB PO SCH (08:43)
[2017-03-17] MEDS: PANTOprazole SOD 40 MG TAB PO SCH (08:43)
[2017-03-17] MEDS: GABAPENTIN 100 MG CAP PO SCH (08:43)
[2017-03-17] MEDS: OXYBUTYNIN CHLORIDE 5 MG TABCR PO SCH (08:43)
[2017-03-17] MEDS: DULOXETINE HCL 60 MG CAP PO SCH (08:43)
--- NOTE | 2017-03-17 09:57 | Discharge Instructions ---
Discharge Instructions Date of Service Mar 17, 2017. Admission Reason for Admission: Cellulitis Of Right Abdominal Wall Discharge Discharge Diagnosis / Problem: Cellulitis of Right Abdominal Wall Discharge Goals Goal(s): Decrease discomfort, Improve function, Increase independence, Improve disease control, Learn about illness, Diagnostic testing, Therapeutic intervention Activity Recommendations Activity Limitations: as noted below Lifting Limitations: gradually increase as tolerated Exercise/Sports Limitations: until after follow-up appointment May Resume Sexual Activity: after follow-up appointment Shower/Bathe: keep incision dry Driving or Machine Use: no limitations . Instructions / Follow-Up Instructions / Follow-Up You were admitted for a skin infection called cellulitis, located on your right abdominal wall. We have treated you for this infection with antibiotics through your IV, and upon discharge we will be sending you home on a tablet form of antibiotic called Doxycycline. We have reviewed your allergies and this drug is not on this list of allergies. As wound care recommends, please continue: Wound Discharge Instructions * Care for abdominal wound: cleanse gently, pack loosely with plain packing, change at least daily. Cover with gauze and cover sponge, tape to wafers, not skin. Change outer dressing when soiled. We also recommend you continue to put a heating pad on your left armpit area, as this swollen gland here needs support to drain - keep the area clean with soap and water. If you experience pain, please take tylenol as directed on the bottle. Please also make sure to call your primary care physician's office to let them know of your hospital admission, and keep your appointment on Mar 24. We have made no changes to your other medications you take for your chronic conditions. Thank you for allowing us to participate in your care. Current Hospital Diet Patient's current hospital diet: Diabetes Type 2 Diet Discharge Diet Recommended Diet: Diabetes Type 2 Diet Procedures Procedures Performed: INCISION AND DRAINAGE RIGHT ABDOMINAL WALL ABSCESS Pending Studies Studies pending at discharge: no Laboratory Results Hemoglobin A1c Test 03/16/17 05:25 Range/Units Estimated Average Glucose 151 mg/dl Hemoglobin A1c 6.9 H 4.5-5.6 % Medical Emergencies . Who to Call and When: Medical Emergencies: If at any time you feel your situation is an emergency, please call 911 immediately. . Non-Emergent Contact Non-Emergency issues call your: Primary Care Provider . . "Provider Documentation" section prepared by Yuni Sage. . VTE Core Measure Inpt VTE Proph given/why not?: SCD's
[2017-03-17] MEDS ORDERED: LINE1TAB6 PO (10:04)
[2017-03-17] MEDS ORDERED: NURSING VERBAL MED ORDER ONE (11:00)
--- NOTE | 2017-03-17 11:13 | Family Medicine Progress Note ---
Progress Note Date of Service Mar 17, 2017. Subjective Pt evaluation today including: conversation w/ patient, physical exam, chart review, lab review, review of studies Pain: controlled PO Intake: adequate Voiding: no voiding problems Spoke with pt regarding allergic reactions in the past to Clinda and Bactrim, pt states she had trouble breathing and diffuse swelling and redness of her skin all over. Pt says she slept well last night, no issues. Pt wants to go home. Says she has appointment with family doc in [place] already scheduled for 03/24, and will keep appt. Constitutional: No fever, No chills Respiratory: No cough, No shortness of breath Cardiovascular: No chest pain Abdomen: No pain, No nausea, No vomiting, No diarrhea, No constipation Skin: No itch Medications Current Inpatient Medications Medications (Trade) Dose Ordered Sig/Dana Route Start Time Stop Time Status Last Admin Dose Admin Enoxaparin Sodium (Lovenox Inj) 40 mg QPM SQ 03/13/17 23:00 04/12/17 22:59 03/16/17 21:30 40 MG Acetaminophen (Tylenol Tab) 650 mg Q4H PRN PO 03/13/17 19:45 04/12/17 19:44 03/14/17 03:48 650 MG Al Hydrox/Mg Hydrox/Simethicone (Maalox Max Susp) 15 ml Q4H PRN PO 03/13/17 19:45 04/12/17 19:44 Magnesium Hydroxide (Milk Of Magnesia Susp) 30 ml Q6H PRN PO 03/13/17 19:45 04/12/17 19:44 Ondansetron HCl (Zofran Inj) 4 mg Q6H PRN IV 03/13/17 19:45 04/12/17 19:44 Albuterol Sulfate (Ventolin 0.083% 2.5MG/3ML Neb) 2.5 mg UD PRN INH 03/13/17 19:45 04/12/17 19:44 Aspirin (Ecotrin Tab) 81 mg DAILY PO 03/14/17 09:00 04/13/17 08:59 03/17/17 08:43 81 MG Atorvastatin Calcium (Lipitor Tab) 20 mg HS PO 03/13/17 21:00 04/12/17 20:59 03/16/17 21:31 20 MG Duloxetine HCl (Cymbalta Cap) 120 mg DAILY PO 03/14/17 09:00 04/13/17 08:59 03/17/17 08:43 120 MG Epinephrine (Epipen) 0.3 mg UD PRN IM 03/13/17 19:45 04/12/17 19:44 Ferrous Sulfate (Feosol Tab) 325 mg BID PO 03/13/17 21:00 04/12/17 20:59 03/17/17 08:43 325 MG Fluticasone Propionate (Flonase Nasal Moore) 1 sprays DAILY PRN CYDNEY 03/13/17 19:45 04/12/17 19:44 Furosemide (Lasix Tab) 20 mg DAILY PRN PO 03/13/17 19:45 04/12/17 19:44 Gabapentin (Neurontin Cap) 100 mg BID PO 03/13/17 21:00 04/12/17 20:59 03/17/17 08:43 100 MG Oxybutynin Chloride (Ditropan-Xl Tab) 10 mg QAM PO 03/14/17 09:00 04/13/17 08:59 03/17/17 08:43 10 MG Pantoprazole Sodium (Protonix Tab) 40 mg DAILY PO 03/14/17 09:00 04/13/17 08:59 03/17/17 08:43 40 MG Trazodone HCl (Desyrel Tab) 25 mg HS PRN PO 03/13/17 19:45 04/12/17 19:44 Insulin Aspart (novoLOG ASPART) SLIDING SCALE G... ACHS SC 03/13/17 21:00 04/12/17 20:59 03/16/17 21:35 5 UNITS Insulin Glargine (Lantus Solostar Pen) 30 units HS SC 03/13/17 21:00 04/12/17 20:59 03/16/17 21:35 30 UNITS Miscellaneous (Iv Fluids Completed) 1 ea PRN PRN N/A 03/13/17 20:30 03/13/18 20:29 Glucose (Glucose 40% Gel) 15-30 GRAMS 15 GRAMS... UD PRN PO 03/13/17 20:45 04/12/17 20:44 Glucose (Glucose Chew Tab) 4-8 Tablets 4 Tabl... UD PRN PO 03/13/17 20:45 04/12/17 20:44 Dextrose (Dextrose 50% 50ML Syringe) 25-50ML OF 50% DW IV FOR... UD PRN IV 03/13/17 20:45 04/12/17 20:44 Glucagon (Glucagon Inj) 1 mg UD PRN SQ 03/13/17 20:45 04/12/17 20:44 Ranolazine (Ranexa ER Tab) 1,000 mg BID PO 03/14/17 09:00 04/13/17 08:59 03/17/17 08:43 1,000 MG Linezolid (Zyvox Tab) 600 mg BID PO 03/17/17 21:00 03/27/17 20:59 UNV Miscellaneous Information (Nursing Verbal Med Order) 1 ea ONE ONCE N/A 03/17/17 11:00 03/17/17 11:01 UNV Objective Physical Exam General Appearance: WD/WN, no apparent distress Eyes: normal inspection, EOMI Respiratory/Chest: chest non-tender, lungs clear, normal breath sounds, no respiratory distress Cardiovascular: regular rate, rhythm, no gallop, no murmur Abdomen: normal bowel sounds, non tender, soft, + pertinent finding (wound covering incision site on RT axillary line. Erythema more receded compared with yesterday, non tender.) Extremities: normal range of motion, no pedal edema, + pertinent finding ( chronic darkening of skin due to h/o stasis dermatitis on LE b/l, non tender, non draining.) Neurologic/Psychiatric: no motor/sensory deficits, alert, normal mood/affect, oriented x 3 Laboratory Results 03/17/17 05:31 03/17/17 05:31 Test 03/17/17 05:31 03/17/17 07:24 Red Blood Count 4.19 M/uL (4.2-5.4) Mean Corpuscular Volume 86.9 fL (80-100) Mean Corpuscular Hemoglobin 29.4 pg (25-34) Mean Corpuscular Hemoglobin Concent 33.8 g/dl (32-36) RDW Standard Deviation 43.9 fL (36.4-46.3) RDW Coefficient of Variation 13.9 % (11.5-14.5) Mean Platelet Volume 10.2 fL (7.4-10.4) Est Creatinine Clear Calc Drug Dose 155.9 ml/min Estimated GFR () 118.5 Estimated GFR (Non- 102.2 Bedside Glucose 143 mg/dl (70-90) Assessment and Plan 51F here for RT abdominal wall cellulitis, with PMH insulin dependent diabetes mellitus, CAD, asthma, depression. Hospital Day: 4 (03/17) Right lateral abdominal wall and L axillary region cellulitis - Ongoing wound care. Continue warm compress on LT axillary region. - Continue Vancomycin HCl 1750 mg/Sodium Chloride, 535 ml @ 200 mls/hr Q12H IV - 03/17 is day 4 of therapy. - Sensitivities back. Will send home on doxy 100 BID x14 days. Diabetes - continue Insulin Glargine (Lantus Solostar Pen) - continue Insulin Aspart (novoLOG ASPART) Neuropathy - continue Gabapentin 100 BID CAD/LE edema/?CHF - pt states she visited her laboratory mechanic helper in [place] last week, with no new recommendations or change in treatment. - continue ASA 81 mg, Atorvastatin 20mg OD, - Furosemide 20 PRN - for angina, continue Ranolazine (Ranexa ER Tab) 1000mg BID Asthma - albuterol PRN Allergies - Epipen prn - fluticasone nasal spray PRN GERD - continue pantoprazole 40 mg daily Overactive bladder - continue Oxybutynin Chloride (Ditropan-Xl Tab) QAM Depression/insomnia - continue cymbalta 120mg daily Anemia - continue ferrous sulfate 325 mg OD Insomnia - trazodone 25mg PRN DVT prophylaxis: Lovenox 40mg QPM Code: FULL Dispo: home, wound clinic at [facility]. Has appointment with family doc in [place] already scheduled for 03/24, and will keep appt. Resident Tracking Resident Involvement: Resident Care Provided Care Provided: Adult Hospital Medicine
[2017-03-17] MEDS ORDERED: DOXYCYCLINE HYCLATE 100 MG CAP PO ONE (11:33)
[2017-03-17 11:36] VITALS: BP 123/80; PULSE 78; TEMP 37.1; O2SAT 95
[2017-03-17] MEDS ORDERED: DXY100 PO (11:46)
--- NOTE | 2017-03-17 11:57 | Discharge Summary ---
Discharge Summary Date of Service Mar 17, 2017. Discharge Summary Admission Date: Mar 14, 2017 at 13:14 Discharge Date: Mar 17, 2017 Discharge Disposition: Home Principal Diagnosis: Cellulitis of RT abdominal wall Immunizations: Have You Had Influenza Vaccine: Unknown History of Tetanus Vaccine?: Unknown History of Pneumococcal: Unknown History of Hepatitis B Vaccine: Unknown Procedures: Incision and drainage of abscess on right abdominal wall. Medication Reconciliation New Medications: Doxycycline Hyclate (Doxycycline Hyclate) 100 Mg Cap 100 MG PO BID for 14 Days, #28 CAP Continued Medications: Albuterol Sulf (Proventil 0.083% 2.5MG/3ML) 2.5 Mg/3 Ml Nebu 2.5 MG INH UD PRN for SOB/Wheezing, EA Albuterol Sulfate (Proair Respiclick) 108 Mcg/Act Aer 2 PUFFS INH Q4-6HRS PRN for SOB/Wheezing Aspirin (Aspirin Ec) 81 Mg Tab 81 MG PO DAILY Atorvastatin (Lipitor) 20 Mg Tab 20 MG PO HS, TAB Cholecalciferol (Decara) 50,000 Unit Cap 96057 INTER.UNIT PO WK PRN for Supplement Dulaglutide (Trulicity) 0.75 Mg/0.5 Ml Inj 0.5 ML SC WK Duloxetine Hcl (Cymbalta) 60 Mg Cap 120 MG PO DAILY, CAP Epinephrine (Epipen) 0.3 Mg/0.3 Ml Inj 0.3 MG IM UD PRN for ALLERGIC REACTION, BOX Ferrous Sulfate (Ferrous Sulfate) 325 Mg Tab 325 MG PO BID Fluticasone Propionate (Nasal) (Flonase Allergy Relief) 50 Mcg/Act Spr 1-2 SPRAYS CYDNEY DAILY PRN for Allergy Symptoms Furosemide (Lasix) 20 Mg Tab 20 MG PO DAILY PRN for Edema/Fluid Retention, TAB Gabapentin (Neurontin) 100 Mg Cap 100 MG PO BID, CAP Insulin Glargine (Lantus Solostar) 100 Unit/Ml Inj 30 UNITS SC HS, PEN Medroxyprogesterone Acetate (C (Depo-Provera Contraceptiv) 150 Mg/Ml Inj 150 MG IM Q10-12 WEELKS Oxybutynin Chloride Er (Ditropan Xl) 10 Mg Tab 10 MG PO QAM, TAB Pantoprazole (Protonix) 40 Mg Tab 40 MG PO DAILY, TAB Ranolazine (Ranexa) 1,000 Mg Tab 1000 MG PO BID, TAB Trazodone Hcl (Trazodone) 50 Mg Tab 25-50 MG PO HS PRN for Sleep, TAB Discharge Exam Review of Systems: Constitutional: No fever, No chills, No sweats Respiratory: No cough, No wheezing Cardiovascular: No chest pain, No palpitations Abdomen: + pain (when changing the packing, pt says it is painful for her, but can tolerate) Genitourinary - Female: No dysuria Physical Exam: General Appearance: WD/WN, no apparent distress Eyes: normal inspection, EOMI Respiratory/Chest: chest non-tender, lungs clear, normal breath sounds, no respiratory distress Cardiovascular: regular rate, rhythm, no gallop, no JVD, no murmur Abdomen / GI: normal bowel sounds, non tender, soft, + pertinent finding ( packing on site of incision RT abdominal wall, receding erythema, trace swelling.) Extremities: no calf tenderness, + pertinent finding (darkened area of skin on lower ext b/l from previous cellulitis/dermatitis infection) Neurologic/Psychiatric: alert, normal mood/affect, oriented x 3 Skin: warm/dry Hospital Course Ms. Thompson is a 51 year old female here for RT abdominal wall cellulitis, with PMH insulin dependent diabetes mellitus, CAD, asthma, depression. Hospital course: 4 days. Right lateral abdominal wall and L axillary region cellulitis - Wound/surg incised and drained. Received 7 doses of Vancomycin IV. Going home on Doxycycline 100 mg BID PO x 14 days (script sent to pharmacy in [place]). - Wound culture grew Staph Aureus, resistant only to erythromycin and oxacillin. Hydradenitis, left axilla - Recommend continue warm compress on LT axillary region and keeping area clean. Diabetes - A1C 6.9 (03/16/17) - continue home insulin, diet and exercise. No changes made. Neuropathy - continue Gabapentin 100 mg BID. No changes made. CAD/LE edema/?CHF - pt states she visited her head of business development in [place] last week, with no new recommendations or change in treatment. - continue ASA 81 mg, Atorvastatin 20mg OD, - continue Furosemide 20 PRN - for angina, continue Ranolazine (Ranexa ER Tab) 1000mg BID - no changes made. No acute events. Asthma - continue albuterol PRN Allergies - Epipen prn - fluticasone nasal spray PRN GERD - continue pantoprazole 40 mg daily Overactive bladder - continue Oxybutynin Chloride (Ditropan-Xl Tab) QAM Depression/insomnia - continue cymbalta 120mg daily Anemia - continue ferrous sulfate 325 mg OD Insomnia - trazodone 25mg PRN DVT prophylaxis: Lovenox 40mg QPM Code: FULL Dispo: home, wound clinic at [facility]. Has appointment with family doc in [place] already scheduled for 03/24, and recommend keeping appt. Total Time Spent: Greater than 30 minutes This includes examination of the patient, discharge planning, medication reconciliation, and communication with other providers. Discharge Instructions Please refer to the electronic Patient Visit Report (Discharge Instructions) for additional information. Additional Copies To Giovanny Rodriguez M.D. Resident Tracking Resident Involvement: Resident Care Provided Care Provided: Adult Hospital Medicine
[2017-03-17] MEDS: ACETAMINOPHEN 325 MG TAB PO PRN (12:11)
[2017-03-17] MEDS ORDERED: DOXYCYCLINE HYCLATE 100 MG CAP PO SCH (19:00)
[2017-03-17] MEDS ORDERED: LINEZOLID 600 MG TAB PO SCH (21:00)
== END 2017-03-17 13:45 | disposition home health service (06) | DRG 580 ==
LOC: C.EDB 15:01 → EDBD 15:01 → C.MED 19:50 → ENRESERV 20:07 → OBSVTOIN 03-14 13:14
PROVIDERS: ADMIT Hospitalist; ATTEND Hospitalist
PROC: 0W9F0ZZ Drainage of Abdominal Wall, Open Approach (ICD-10-PCS; principal; 2017-03-15 13:00)
DX: L03.311 Cellulitis of abdominal wall (principal); L03.112 Cellulitis of left axilla; L73.2 Hidradenitis suppurativa; E11.40 Type 2 diabetes mellitus with diabetic neuropathy, unspecified; J45.909 Unspecified asthma, uncomplicated; E78.5 Hyperlipidemia, unspecified; F32.9 Major depressive disorder, single episode, unspecified; Z88.2 Allergy status to sulfonamides; Z79.82 Long term (current) use of aspirin; K21.9 Gastro-esophageal reflux disease without esophagitis; G47.00 Insomnia, unspecified; I10 Essential (primary) hypertension; I25.10 Atherosclerotic heart disease of native coronary artery without angina pectoris; N32.81 Overactive bladder; Z86.14 Personal history of Methicillin resistant Staphylococcus aureus infection; D64.9 Anemia, unspecified; Z79.4 Long term (current) use of insulin; B95.8 Unspecified staphylococcus as the cause of diseases classified elsewhere

== ENCOUNTER 2019-03-01 12:38 | Inpatient (IN) ==
[2019-03-01] MEDS ORDERED: PIPERACILL/TAZOBAC CONSULT ACTIVE PRN (15:34)
[2019-03-01] MEDS ORDERED: VANCOMYCIN CONSULT ACTIVE PRN (15:34)
[2019-03-01] MEDS ORDERED: ACETAMINOPHEN 325 MG TAB PO PRN (15:34)
[2019-03-01] MEDS ORDERED: ONDANSETRON INJ 2 MG/ML 2 ML VIAL IV PRN (15:34)
[2019-03-01] MEDS ORDERED: GLUCOSE 40% GEL 15 GM TUBE PO PRN (15:39)
[2019-03-01] MEDS ORDERED: GLUCOSE 10 TABS/TUBE PO PRN (15:39)
[2019-03-01] MEDS ORDERED: GLUCAGON FOR INJ 1 MG VIAL SQ PRN (15:39)
[2019-03-01] MEDS ORDERED: DEXTROSE 50% 50 ML SYRINGE IV PRN (15:39)
[2019-03-01] MEDS ORDERED: ALBUTEROL 0.083% NEBU SOLN 3 ML VIAL INH PRN (15:43)
[2019-03-01] MEDS ORDERED: TRAZODONE HCL 50 MG TAB PO PRN (15:43)
[2019-03-01] MEDS ORDERED: INFLUENZA ADMINISTRATION CHARGE ONE (15:45)
[2019-03-01] MEDS ORDERED: INFLUENZA VIRUS QUAD VACCINE 0.5 ML SYR IM ONE (15:45)
[2019-03-01] MEDS ORDERED: VANCOMYCIN HCL 1,000 MG in SODIUM CHLORIDE 0.9% 250 ML IV SCH (15:45)
--- NOTE | 2019-03-01 15:53 | History & Physical Report ---
Date of Service March 01, 2019 Assessment & Plan (1) Facial cellulitis: (1) Facial Cellulitis Patient with cellulitis of the chin, right lateral jaw. She was seen in the ER yesterday with the same. At that time she was given prescription for doxycycline 100 mg p.o. twice daily and instructed to return to care should her pain increase or if she develops systemic evidence of infection. She returns with worsening pain on the right jaw. Overall redness and swelling has improved from yesterday. She remains afebrile but continues to have consistent chills and also developed some nausea. She is having difficulty opening her mouth due to pain. Voice normal, no drooling, airway patent. Presentation does not seem to be consistent with Dre's angina at this point. Per CT yesterday no fluid collection or drainable abscess. -Observation to medical floor -Check CBC, ESR, CRP -Broad-spectrum coverage with vancomycin and Zosyn. Patient with history of MRSA skin and soft tissue infection in the past -Tylenol and Toradol as needed for pain -Warm compresses -If symptoms persist or progress would consider reimaging to assess for progression of infection. (2) Hx of diabetes mellitus: Patient reports blood sugars have been running slightly higher than usual which is to be expected in acute infection. Have been less than 200 -Continue Lantus 38 units subcu nightly, insulin sliding scale -Continue Gabapentin for Neuropathy Present on Admission?: Yes (3) Hyperlipidemia: Chronic. Stable -Continue Atorvastatin Present on Admission?: Yes (4) Depression: Stable -Continue Bupoprion -Continue trazodone nightly Present on Admission?: Yes (5) Asthma: Chronic. Stable -Albuterol as needed Present on Admission?: Yes (6) Atypical chest pain: Patient with history of atypical CP. Presently CP free -Continue Ranolazine FEN: Normal saline at 125 mL/h x 2 L, monitor elect lites and replete as needed, full liquid consistent carb diet as tolerated with aspiration precautions Prophylaxis: Patient low risk for DVT. Encourage ambulation and IV fluids. Protonix 40 mg p.o. daily Code: Full Disposition: Observation to medical floor, contact precautions secondary to prior MRSA (2) Hx of diabetes mellitus: (3) Hyperlipidemia: (4) Depression: (5) Asthma: (6) Atypical chest pain: History of Present Illness Chief Complaint: Facial cellulitis Primary Care Provider: ANTOINE Carvalho Jayne Thompson is a pleasant 53yo C female with history of DM-II on insulin t herapy, HLP. She had a prior MRSA infection/facial cellulitis with what sounds to be a drainable collection that was treated at [facility] in January,. She reports a small pimple on her chin that started approximately 1 week ago. She popped it and expressed a small amount of purulent drainage. Thursday evening her chin and right lateral neck became swollen and tender. Her swelling progressed through Thursday with some mild involvement of her left lateral chin. She has some pain and chills, otherwise no fevers/nausea/vomiting/malaise. Patient was seen in the ER yesterday. A febrile, hemodynamically stable, nontoxic in appearance. CT was obtained which revealed no collection. She was discharged home with doxycycline 100 mg p.o. twice daily. Patient took 2 doses of the Doxy. Followed up with her PCP today and was complaining of increased pain on the right jaw. Persistent chills as well as mild nausea. She denies drooling, hoarseness or edema in the mouth. She is having difficulty opening her mouth secondary to pain. Patient had 3 maxillary teeth extracted 1 week ago - uncomplicated procedure. She has been eating a soft diet since then. Minimal pain at extraction site. No bleeding/drainage or fluctuance. Allergies Allergy/AdvReac Type Severity Reaction Status Date / Time Bactrim Allergy Unknown Unknown Verified 06/09/18 13:46 bee venom protein (honey bee) Allergy Unknown Unknown Verified 03/01/19 12:03 cephalexin Allergy Unknown Unknown Verified 03/01/19 12:03 clindamycin Allergy Unknown Unknown Verified 03/01/19 12:03 diphenhydramine Allergy Unknown Unknown Verified 03/01/19 12:03 erythromycin base Allergy Unknown Unknown Verified 03/01/19 12:03 fluticasone Allergy Unknown Unknown Verified 03/01/19 12:03 milk Allergy Unknown Unknown Verified 03/01/19 12:03 mometasone furoate Allergy Unknown Unknown Verified 03/01/19 12:03 salmeterol Allergy Unknown Unknown Verified 03/01/19 12:03 strawberry Allergy Unknown Unknown Verified 03/01/19 12:03 sulfamethoxazole Allergy Unknown Unknown Verified 03/01/19 12:03 trimethoprim Allergy Unknown Unknown Verified 03/01/19 12:03 PAPER TAPE Allergy Unknown Unknown Uncoded 03/01/19 12:03 Home Medications Home Medications Medication Instructions Recorded Confirmed Type albuterol sulfate 2.5 mg INHALATION QID PRN #0 dose 03/13/17 03/01/19 History aspirin [Aspirin Low Dose] 81 mg PO DAILY #0 03/13/17 03/01/19 History atorvastatin 20 mg PO HS #0 tab 03/13/17 03/01/19 History dulaglutide [Trulicity] 0.75 mg SUBCUT WK #0 03/13/17 03/01/19 History pantoprazole 40 mg PO DAILY #0 tab 03/13/17 03/01/19 History albuterol sulfate [ProAir HFA] 2 puff INHALATION QID PRN 09/27/18 03/01/19 History insulin lispro [Humalog KwikPen 20 units SUBCUT BID 09/27/18 03/01/19 History Insulin] ranolazine ER 1,000 mg 1,000 mg PO BID #60 tab 12/15/18 03/01/19 Rx tablet,extended release,12 hr epinephrine 0.1 mg/0.1 mL 0.1 ml IM ONCE PRN ea 01/05/19 03/01/19 History injection, auto-injector gabapentin 100 mg capsule 200 mg PO BID #0 cap 01/05/19 03/01/19 History oxybutynin chloride ER 10 mg 10 mg PO DAILY #90 tab 01/05/19 03/01/19 History tablet,extended release 24 hr trazodone 50 mg tablet 50 mg PO HS PRN #30 tab 01/05/19 03/01/19 History clindamycin 1 % lotion 1 appln TOPICAL .COMPLEX #60 ml 01/10/19 03/01/19 Rx ferrous sulfate 325 mg (65 mg 325 mg PO DAILY #90 tab 01/21/19 03/01/19 Rx iron) tablet bupropion HCl XL 300 mg 24 hr 300 mg PO QAM 02/08/19 03/01/19 History tablet, extended release insulin glargine (U- 100) 100 38 units SUBCUT HS #0 pen 02/08/19 03/01/19 History unit/mL subcutaneous solution doxycycline hyclate 100 mg PO BID 14 Days #28 tab 02/28/19 03/01/19 Rx Past Med/Surg History Medical History Venous insufficiency (Acute) Trigger finger (Acute) Systolic murmur (Acute) Overactive bladder (Acute) Morbid obesity (Acute) Hyperlipidemia (Acute) Diabetic neuropathy (Acute) Depression (Acute) DM (diabetes mellitus), type 2 (Acute) Asthma (Acute) Anemia (Acute) Amenorrhea (Acute) Acid reflux (Acute) MRSA (methicillin resistant Staphylococcus aureus) Surgical History History of cardiac cath History of incision and drainage Family History Other Heart disease Social History Preferred Language: Slovenian Communication Ability: Effective Raw Sampler Required: No Beliefs That Will Affect Care: None marital status: Current Living Situation: Family current occupational status: disabled Other Information That Helps Us Care for You: No Feels Safe at Home: Yes Safety Concerns: Feels Safe At This Time Smoking Status: Never smoker Do You Dip or Chew Tobacco: No ; Second Hand Exposure: No ; Tobacco Cessation Education Requested by Patient: No Hx Alcohol Use: Yes Alcohol Intake Frequency: Holidays/Special Occasions Hx Substance Use: No Review of Systems Review of Systems: All systems reviewed & are unremarkable except as noted in HPI & below Physical Exam Physical Exam: General: patient resting comfortably, NAD, non-toxic in appearance, AA&O x 4 Skin: warm, dry, intact, small abrasion on right side of chin with eschar, surrounding erythema. Overall, redness of her chin and jaw is improved from yesterday and she appears to be slightly less edematous however, more tender to touch HEENT: NC/AT, PERRL, EOMI, anicteric sclera, conjunctiva without injection, external ear normal to inspection and nontender, nares patent, difficulty opening mouth secondary to pain, moist mucus membranes, poor dentition, no oropharyngeal lesions, neck supple, trachea midline, no LAD, no thyromegaly, no JVD Heart: +S1/S2, regular, no m/r/g Lungs: equal air entry bilaterally, no rales/rhonchi/wheezes Abd: +BS, soft, NT/ND, no masses/organomegaly/ascites Ext: warm, 2+ pulses in UE/LE bilaterally, no clubbing/cyanosis or edema Neuro: nonfocal, patient AA&O x 4, speech intact, no facial droop, moving all extremities on command with equal strength 5/5 Results & Data Vital Signs (Past 12 Hours) Vital Signs Temp Pulse Resp BP Pulse Ox 03/01/19 14:55 36.8 C 90 18 128/78 96 Laboratory Results Lab Results 03/01/19 03/01/19 Range/Units 16:27 16:27 WBC 9.65 (4.8-10.8) K/uL RBC 4.52 (4.2-5.4) M/uL Hgb 13.3 (12.0-16.0) g/dL Hct 40.8 (37-47) % MCV 90.3 (80-100) fL MCH 29.4 (25-34) pg MCHC 32.6 (32-36) g/dL RDW Std Deviation 48.1 H (36.4-46.3) fL RDW Coeff of Lan 14.6 H (11.5-14.5) % Plt Count 191 (130-400) K/uL MPV 10.5 H (7.4-10.4) fL Immature Gran % (Auto) 0.2 % Neut % (Auto) 69.3 % Lymph % (Auto) 20.0 % Wilbarger % (Auto) 8.4 % Eos % (Auto) 1.9 % Baso % (Auto) 0.2 % Immature Gran # (Auto) 0.02 (0.00-0.02) K/uL Neut # (Auto) 6.69 H (1.4-6.5) K/uL Lymph # (Auto) 1.93 (1.2-3.4) K/uL Wilbarger # (Auto) 0.81 H (0.11-0.59) K/uL Eos # (Auto) 0.18 (0-0.5) K/uL Baso # (Auto) 0.02 (0-0.2) K/uL Creatinine 0.81 (0.6-1.2) mg/dl Est Cr Clr Drug Dosing 124.8 ml/min Est GFR ( Amer) 97.5 Est GFR (Non-Af Amer) 84.[address] facial bones w con CLINICAL HISTORY: 53 years-old Female presenting with facial abscess, right- sided chin and jaw redness and swelling, history of MRSA. TECHNIQUE: Multidetector CT of the face was performed after the administration of intravenous contrast. IV contrast: 120 mL of Optiray 320. One or more dose lowering techniques were used consistent with the principles of ALARA (as low as reasonably achievable), including automatic exposure control, mA or kV adjustment to individual patient size, and/or use of iterative reconstruction. COMPARISON: None. CT DOSE (mGy.cm): The estimated cumulative dose is 289.27 mGy.cm. FINDINGS: Manufacturing Director topogram: Unremarkable. Infiltration of the subcutaneous fat with overlying skin thickening and subjacent superficial muscle edema along the right aspect of the mandible and lower lip. This extends posteriorly to the level of the angle of mandible. Trace if any infiltration of submandibular fat is evident. No rim-enhancing collection to suggest abscess. The mandible demonstrates absence of several teeth as in the maxilla. Resection sites/periapical lucency at several of the maxillary teeth noted. There is also periapical lucency at the postsurgical change at the level of the right maxillary lateral incisor (series 4 image 132). The aerodigestive tract is patent. Paranasal sinuses and mastoid air cells clear. Orbits are normal. Vasculature patent. Limited intracranial evaluation within normal limits. No cervical lymphadenopathy though scattered bilateral prominent lymph nodes are noted in the submandibular region, likely reactive. Degenerative changes of the spine. IMPRESSION: 1. No evidence of abscess. 2. Subcutaneous fat infiltration overlying skin thickening likely suggests cellulitis. This does not appear to have an odontogenic etiology along the mandible. 3. Several maxillary teeth are absent with periapical lucency at postsurgical change at the level of the right lateral maxillary incisor. Electronically signed by: Albert Paniagua M.D. 02/28/2019 11:24 AM Dictated: 02/28/19 1119 Transcribed: 02/28/19 1119 Code Status & VTE Plan Code Status Full code VTE Prophylaxis Plan VTE Prophylaxis will be ordered: Yes PG Care Time/CCT Total # of Minutes Spent Total Time Spent with Patient: Total time spent is greater than 50% in coordination of care (as documented) at patient's floor/unit and/or counseling patient: (1) Depression Active/Remission status: remission status unspecified Depression Type: major depressive disorder Major depression recurrence: unspecified whether recurrent Qualified Code(s): F32.9 - Major depressive disorder, single episode, unspecified (2) Hyperlipidemia Hyperlipidemia type: unspecified Qualified Code(s): E78.5 - Hyperlipidemia, unspecified (3) Asthma Asthma complication type: uncomplicated Asthma persistence: intermittent Asthma severity: mild Qualified Code(s): J45.20 - Mild intermittent asthma, uncomplicated
[2019-03-01] MEDS ORDERED: DAPTOMYCIN CONSULT ACTIVE PRN (16:05)
[2019-03-01] MEDS ORDERED: PIPERACILLIN/TAZOBACTAM 4.5 GM in DEXTROSE 5% 100 ML IV ONE (16:15)
[2019-03-01 16:36] LABS: Basophils # (auto) 0.02 K/uL (0-0.2); Basophils % (auto) 0.2 %; Eosinophils # (auto) 0.18 K/uL (0-0.5); Eosinophils % (auto) 1.9 %; Hematocrit (blood only) 40.8 % (37-47); Hemoglobin 13.3 g/dL (12.0-16.0); Immature Granulocytes # (auto) 0.02 K/uL (0.00-0.02); Immature Granulocytes % (auto) 0.2 %; Lymphocytes # (auto) 1.93 K/uL (1.2-3.4); Mean Corpuscular Hemoglobin 29.4 pg (25-34); Mean Corpuscular Hgb Conc 32.6 g/dL (32-36); Mean Corpuscular Volume 90.3 fL (80-100); Mean Platelet Volume 10.5 fL (7.4-10.4); Monocytes # (auto) 0.81 K/uL (0.11-0.59); Monocytes % (auto) 8.4 %; Neutrophils # (auto) 6.69 K/uL (1.4-6.5); Neutrophils % (auto) 69.3 %; Platelet Count 191 K/uL (130-400); RDW Coefficient of Variation 14.6 % (11.5-14.5); RDW Standard Deviation 48.1 fL (36.4-46.3); Red Blood Count 4.52 M/uL (4.2-5.4); White Blood Count 9.65 K/uL (4.8-10.8)
[2019-03-01 16:58] LABS: Creatinine Clr Calc Pharmacy 124.8 ml/min; Est GFR (African American) 97.5; Est GFR (Non-African American) 84.1
[2019-03-01] MEDS ORDERED: DAPTOmycin 550 MG in SYRINGE 0 ML IV SCH (17:00)
[2019-03-01 17:13] LABS: Albumin Level 2.9 gm/dl (3.4-5.0); BUN Creatinine Ratio 10.7 (10-20); Bilirubin,Total 0.7 mg/dl (0.2-1); C Reactive Protein 9.08 mg/dl (0-0.29); Calcium 8.8 mg/dl (8.5-10.1); Creatinine Clr Calc Pharmacy 126.4 ml/min; Est GFR (African American) 98.9; Est GFR (Non-African American) 85.4; Total Protein 7.4 gm/dl (6.4-8.2)
[2019-03-01] MEDS: SODIUM CHLORIDE 0.9% 1000ML 1,000 ML IV SCH (17:21)
[2019-03-01] MEDS: INSULIN ASPART 100 UNITS/ML 3 ML PEN SC SCH ×2 (17:22→21:10)
[2019-03-01 17:25] LABS: Bilirubin Direct 0.2 mg/dl (0-0.2)
[2019-03-01] MEDS: KETOROLAC TROMETHAMINE 15 MG/ML VIAL IV PRN (17:28)
[2019-03-01] MEDS ORDERED: ATORVASTATIN 20 MG TAB PO SCH (21:00)
[2019-03-01] MEDS: INSULIN GLARGINE SOLOSTAR 100 UNITS/ML 3 ML PEN SC SCH (21:12)
[2019-03-01] MEDS: GABAPENTIN 100 MG CAP PO SCH (21:16)
[2019-03-01] MEDS: RANOLAZINE 500 MG ER TAB PO SCH (21:17)
[2019-03-01] MEDS: PIPERACILLIN/TAZOBACTAM 4.5 GM in DEXTROSE 5% 100 ML IV SCH (21:21)
[2019-03-02] MEDS: SODIUM CHLORIDE 0.9% 1000ML 1,000 ML IV SCH (01:05)
[2019-03-02] MEDS: KETOROLAC TROMETHAMINE 15 MG/ML VIAL IV PRN ×2 (03:50→15:40)
[2019-03-02] MEDS: PIPERACILLIN/TAZOBACTAM 4.5 GM in DEXTROSE 5% 100 ML IV SCH ×3 (05:20→21:38)
[2019-03-02 06:24] LABS: Creatinine Clr Calc Pharmacy 118.9 ml/min; Est GFR (Non-African American) 79.3
[2019-03-02] MEDS: OXYBUTYNIN CHLORIDE XL 5 MG TABCR PO SCH (08:27)
[2019-03-02] MEDS: BuPROPion XL 300 MG TABCR PO SCH (08:28)
[2019-03-02] MEDS: PANTOprazole 40 MG TAB PO SCH (08:28)
[2019-03-02] MEDS: ASPIRIN 81 MG ECTAB PO SCH (08:28)
[2019-03-02] MEDS: GABAPENTIN 100 MG CAP PO SCH ×2 (08:28→20:32)
[2019-03-02] MEDS: RANOLAZINE 500 MG ER TAB PO SCH ×2 (08:28→20:32)
[2019-03-02] MEDS: FERROUS SULFATE 325 MG TAB PO SCH (08:28)
[2019-03-02] MEDS: INSULIN ASPART 100 UNITS/ML 3 ML PEN SC SCH ×4 (08:32→20:56)
[2019-03-02 11:21] LABS: Basophils # (auto) 0.02 K/uL (0-0.2); Basophils % (auto) 0.2 %; Eosinophils # (auto) 0.29 K/uL (0-0.5); Eosinophils % (auto) 3.4 %; Hematocrit (blood only) 37.5 % (37-47); Hemoglobin 12.6 g/dL (12.0-16.0); Immature Granulocytes # (auto) 0.01 K/uL (0.00-0.02); Immature Granulocytes % (auto) 0.1 %; Lymphocytes # (auto) 1.72 K/uL (1.2-3.4); Lymphocytes % (auto) 19.9 %; Mean Corpuscular Hemoglobin 30.3 pg (25-34); Mean Corpuscular Hgb Conc 33.6 g/dL (32-36); Mean Corpuscular Volume 90.1 fL (80-100); Mean Platelet Volume 10.6 fL (7.4-10.4); Monocytes # (auto) 0.73 K/uL (0.11-0.59); Monocytes % (auto) 8.5 %; Neutrophils # (auto) 5.86 K/uL (1.4-6.5); Neutrophils % (auto) 67.9 %; Platelet Count 178 K/uL (130-400); RDW Coefficient of Variation 14.4 % (11.5-14.5); RDW Standard Deviation 47.9 fL (36.4-46.3); Red Blood Count 4.16 M/uL (4.2-5.4); White Blood Count 8.63 K/uL (4.8-10.8)
[2019-03-02] MEDS: DAPTOmycin 400 MG in SYRINGE 0 ML IV SCH (16:57)
[2019-03-02] MEDS: INSULIN GLARGINE SOLOSTAR 100 UNITS/ML 3 ML PEN SC SCH (20:57)
--- NOTE | 2019-03-02 22:51 | Hospitalist Progress Note ---
Date of Service March 02, 2019 Assessment & Plan (1) Facial cellulitis: (1) Facial Cellulitis Patient with cellulitis of the chin, right lateral jaw. She was seen in the ER yesterday with the same. At that time she was given prescription for doxycycline 100 mg p.o. twice daily and instructed to return to care should her pain increase or if she develops systemic evidence of infection. She returns with worsening pain on the right jaw. Overall redness and swelling has improved from yesterday. She remains afebrile but continues to have consistent chills and also developed some nausea. She is having difficulty opening her mouth due to pain. Voice normal, no drooling, airway patent. Presentation does not seem to be consistent with Dre's angina at this point. Per CT yesterday no fluid collection or drainable abscess. Admitted. Will continue with antibiotics. Placed warm compresses. -Broad-spectrum coverage with Zosyn and daptomycin. Patient with history of MRSA skin and soft tissue infection in the past -Tylenol and Toradol as needed for pain . (2) Hx of diabetes mellitus: Patient reports blood sugars have been running slightly higher than usual which is to be expected in acute infection. Have been less than 200 -Continue Lantus 38 units subcu nightly, insulin sliding scale -Continue Gabapentin for Neuropathy Present on Admission?: Yes (3) Hyperlipidemia: Chronic. Stable -Continue Atorvastatin Present on Admission?: Yes (4) Depression: Stable -Continue Bupoprion -Continue trazodone nightly Present on Admission?: Yes (5) Asthma: Chronic. Stable -Albuterol as needed Present on Admission?: Yes (6) Atypical chest pain: Patient with history of atypical CP. Presently CP free -Continue Ranolazine Prophylaxis: Patient low risk for DVT. Encourage ambulation and IV fluids. Protonix 40 mg p.o. daily Code: Full (2) Hx of diabetes mellitus: (3) Hyperlipidemia: (4) Depression: (5) Asthma: (6) Atypical chest pain: Subjective 53 yo female reports having pain in her chin and the right side of her face. She reports pain when she chews and is requesting to be on a full liquid diet today. Patient denies any nausea, vomiting, diarrhea. Review of Systems Review of Systems: All systems reviewed & are unremarkable except as noted in HPI & below Physical Exam Physical Exam: General: patient resting comfortably, NAD, non-toxic in appearance, AA&O x 4 Skin: warm, dry, intact, small abrasion on right side of chin with eschar, surrounding erythema. No additional erythema noted on cheek and jawline more tender to touch HEENT: NC/AT, PERRL, EOMI, anicteric sclera, conjunctiva without injection, external ear normal to inspection and nontender, nares patent, difficulty opening mouth secondary to pain, moist mucus membranes, poor dentition, no oropharyngeal lesions, neck supple, trachea midline, no LAD, no thyromegaly, no JVD Heart: +S1/S2, regular, no m/r/g Lungs: equal air entry bilaterally, no rales/rhonchi/wheezes Abd: +BS, soft, NT/ND, no masses/organomegaly/ascites Ext: warm, 2+ pulses in UE/LE bilaterally, no clubbing/cyanosis or edema Neuro: nonfocal, patient AA&O x 4, speech intact, no facial droop, moving all extremities on command with equal strength 5/5 Results & Data Vital Signs (Past 12 Hours) Vital Signs Temp Pulse Resp BP BP Pulse Ox 03/02/19 22:46 37.4 C 84 16 110/66 96 03/02/19 15:23 37.0 C 76 16 127/72 96 PG Care Time/CCT Total # of Minutes Spent Total Time Spent with Patient: Total time spent is greater than 50% in coordination of care (as documented) at patient's floor/unit and/or counseling patient: (1) Depression Active/Remission status: remission status unspecified Depression Type: major depressive disorder Major depression recurrence: unspecified whether recurrent Qualified Code(s): F32.9 - Major depressive disorder, single episode, unspecified (2) Hyperlipidemia Hyperlipidemia type: unspecified Qualified Code(s): E78.5 - Hyperlipidemia, unspecified (3) Asthma Asthma complication type: uncomplicated Asthma persistence: intermittent Asthma severity: mild Qualified Code(s): J45.20 - Mild intermittent asthma, uncomplicated
[2019-03-03] MEDS: PIPERACILLIN/TAZOBACTAM 4.5 GM in DEXTROSE 5% 100 ML IV SCH ×3 (05:43→21:36)
[2019-03-03 06:31] LABS: Creatinine Clr Calc Pharmacy 116.2 ml/min; Est GFR (African American) 89.4; Est GFR (Non-African American) 77.1
[2019-03-03] MEDS: OXYBUTYNIN CHLORIDE XL 5 MG TABCR PO SCH (09:15)
[2019-03-03] MEDS: RANOLAZINE 500 MG ER TAB PO SCH ×2 (09:16→21:15)
[2019-03-03] MEDS: GABAPENTIN 100 MG CAP PO SCH ×2 (09:16→21:14)
[2019-03-03] MEDS: FERROUS SULFATE 325 MG TAB PO SCH (09:16)
[2019-03-03] MEDS: ASPIRIN 81 MG ECTAB PO SCH (09:16)
[2019-03-03] MEDS: PANTOprazole 40 MG TAB PO SCH (09:16)
[2019-03-03] MEDS: BuPROPion XL 300 MG TABCR PO SCH (09:17)
[2019-03-03] MEDS: INSULIN ASPART 100 UNITS/ML 3 ML PEN SC SCH ×4 (09:25→21:09)
--- NOTE | 2019-03-03 11:28 | Infectious Disease Consult ---
Date of Consultation March 03, 2019 Assessment & Plan (1) Facial cellulitis: Facial cellulitis and patient with known MRSA infection. Given lack of available oral alternatives, will likely need to complete course of therapy with IV antibiotics. Continue on daptomycin. Will discuss. Will follow. (2) MRSA (methicillin resistant Staphylococcus aureus) carrier: History of Present Illness Reason for Consultation: Daptomycin Attending Physician: Dudley Camarillo History of Present Illness 53-year-old female with history of diabetes mellitus, diabetic neuropathy, hyperlipidemia, morbid obesity, prior MRSA infections, who presents to the hospital with 1 week of of worsening infection of her chin and face. She was seen in the emergency room and sent home on doxycycline but symptoms worsened and she was admitted for further management. She has been started empirically on daptomycin. CT scan of the face shows no obvious drainable abscess. She has not had any significant fever or chills. No other areas of infection noted. Allergies Allergy/AdvReac Type Severity Reaction Status Date / Time Bactrim Allergy Unknown Unknown Verified 06/09/18 13:46 bee venom protein (honey bee) Allergy Unknown Unknown Verified 03/01/19 12:03 cephalexin Allergy Unknown Unknown Verified 03/01/19 12:03 clindamycin Allergy Unknown Unknown Verified 03/01/19 12:03 diphenhydramine Allergy Unknown Unknown Verified 03/01/19 12:03 erythromycin base Allergy Unknown Unknown Verified 03/01/19 12:03 fluticasone Allergy Unknown Unknown Verified 03/01/19 12:03 milk Allergy Unknown Unknown Verified 03/01/19 12:03 mometasone furoate Allergy Unknown Unknown Verified 03/01/19 12:03 salmeterol Allergy Unknown Unknown Verified 03/01/19 12:03 strawberry Allergy Unknown Unknown Verified 03/01/19 12:03 sulfamethoxazole Allergy Unknown Unknown Verified 03/01/19 12:03 trimethoprim Allergy Unknown Unknown Verified 03/01/19 12:03 PAPER TAPE Allergy Unknown Unknown Uncoded 03/01/19 12:03 Home Medications Home Medications Medication Instructions Recorded Confirmed Type albuterol sulfate 2.5 mg INHALATION QID PRN #0 dose 03/13/17 03/01/19 History aspirin [Aspirin Low Dose] 81 mg PO DAILY #0 03/13/17 03/01/19 History atorvastatin 20 mg PO HS #0 tab 03/13/17 03/01/19 History dulaglutide [Trulicity] 0.75 mg SUBCUT WK #0 03/13/17 03/01/19 History pantoprazole 40 mg PO DAILY #0 tab 03/13/17 03/01/19 History albuterol sulfate [ProAir HFA] 2 puff INHALATION QID PRN 09/27/18 03/01/19 History insulin lispro [Humalog KwikPen 20 units SUBCUT BID 09/27/18 03/01/19 History Insulin] ranolazine ER 1,000 mg 1,000 mg PO BID #60 tab 12/15/18 03/01/19 Rx tablet,extended release,12 hr epinephrine 0.1 mg/0.1 mL 0.1 ml IM ONCE PRN ea 01/05/19 03/01/19 History injection, auto-injector gabapentin 100 mg capsule 200 mg PO BID #0 cap 01/05/19 03/01/19 History oxybutynin chloride ER 10 mg 10 mg PO DAILY #90 tab 01/05/19 03/01/19 History tablet,extended release 24 hr trazodone 50 mg tablet 50 mg PO HS PRN #30 tab 01/05/19 03/01/19 History clindamycin 1 % lotion 1 appln TOPICAL .COMPLEX #60 ml 01/10/19 03/01/19 Rx ferrous sulfate 325 mg (65 mg 325 mg PO DAILY #90 tab 01/21/19 03/01/19 Rx iron) tablet bupropion HCl XL 300 mg 24 hr 300 mg PO QAM 02/08/19 03/01/19 History tablet, extended release insulin glargine (U- 100) 100 38 units SUBCUT HS #0 pen 02/08/19 03/01/19 History unit/mL subcutaneous solution doxycycline hyclate 100 mg PO BID 14 Days #28 tab 02/28/19 03/01/19 Rx Patient History Medical History Venous insufficiency (Acute) Trigger finger (Acute) Systolic murmur (Acute) Overactive bladder (Acute) Morbid obesity (Acute) Hyperlipidemia (Acute) Diabetic neuropathy (Acute) Depression (Acute) DM (diabetes mellitus), type 2 (Acute) Asthma (Acute) Anemia (Acute) Amenorrhea (Acute) Acid reflux (Acute) MRSA (methicillin resistant Staphylococcus aureus) Surgical History History of cardiac cath History of incision and drainage Family History Other Heart disease Social History (Reviewed 03/03/19 @ 11: by Myles Sanchez MD) Preferred Language: Iraqi Communication Ability: Effective Db2 Systems Programmer Required: No Beliefs That Will Affect Care: None marital status: Current Living Situation: Family current occupational status: disabled Feels Safe at Home: Yes Smoking Status: Never smoker Second Hand Exposure: No ; Hx Alcohol Use: Yes Alcohol Intake Frequency: Holidays/Special Occasions Hx Substance Use: No Review of Systems Review of Systems: All systems reviewed & are unremarkable except as noted in HPI & below Physical Exam Constitutional: WD/WN, vitals as above + obese and comfortable; no acute distress Eyes: PERRL, conjunctivae normal, anicteric sclerae ENMT: external ear and nose normal, oropharynx normal Neck: trachea midline, no thyromegaly neck nontender Respiratory: normal respiratory effort, lungs clear to auscultation normal percussion; does not use accessory muscles Cardiovascular: Rate/Rhythm: regular rate and regular rhythm Heart Sounds: normal S1 and normal S2; no gallop, no murmur and no cardiac rub Vessels: normal peripheral pulses; no JVD Gastrointestinal (Abdomen): normal bowel sounds, soft, nontender, no hepatosplenomegaly Musculoskeletal: no cyanosis or clubbing, extremities motor strength 5/5 Spine: thoracic spine normal to inspection and lumbar spine normal to inspection; no cervical spinal tenderness Skin: no rashes, warm and dry normal turgor and + erythema (With pustules of chin and face) Neurologic: patellar DTR's 2+ bilat, sensation intact no focal motor deficits Psychiatric: A+Ox3, euthymic affect Orientation: cooperative Lymphatic: no cervical or axillary lymphadenopathy no inguinal lymphadenopathy Results & Data Vital Signs (Past 12 Hours) Vital Signs Temp Pulse Resp BP Pulse Ox 03/03/19 08:00 37.6 C H 87 16 123/74 94 Laboratory Results BMP 03/03/19 05:30 Creatinine 0.87 Diagnostic Findings Spec: [id number] Collected: 07/07/18 Received: 07/07/[address]: Margo Cyr CRNP Source: [place] OV Order: Ordered: Deep Wnd Cul/Sm Comments: Source of Specimen: [place] Queries: [facility] Req Number [id number] Procedure Result Verified Site Gram Stain Final 07/07/18-1450 Gram Stain Result Rare WBCs Seen No Organisms Seen Deep Wound Culture Final 07/09/18-0837 Organism 1 Staph aureus MRSA Quantity Few Sens Sensitivities to Follow Sensitivity results indicate a Methicillin-Resistant Staph aureus. Phoned to [facility] ([facility]) on 07/09/18 at 0804 by Homer Peguero. Results were verbalized back. MRSA RX M.I.C. --- --------- Clindamycin S <=0.5 Daptomycin S 1 Erythromycin R >4 Oxacillin R >2 Rifampin S <=1 Tetracycline S <=4 Trimeth/Sulfa S <=0.5/9.5 Vancomycin S 2 S = SENSITIVE I = INTERMEDIATE R = RESISTANT Name: FOUZIA ALBA : 1965 PAGE 1 Printed: 03/03/[address] facial bones w con CLINICAL HISTORY: 53 years-old Female presenting with facial abscess, right- sided chin and jaw redness and swelling, history of MRSA. TECHNIQUE: Multidetector CT of the face was performed after the administration of intravenous contrast. IV contrast: 120 mL of Optiray 320. One or more dose lowering techniques were used consistent with the principles of ALARA (as low as reasonably achievable), including automatic exposure control, mA or kV adjustment to individual patient size, and/or use of iterative reconstruction. COMPARISON: None. CT DOSE (mGy.cm): The estimated cumulative dose is 289.27 mGy.cm. FINDINGS: Systems Spec topogram: Unremarkable. Infiltration of the subcutaneous fat with overlying skin thickening and subjacent superficial muscle edema along the right aspect of the mandible and lower lip. This extends posteriorly to the level of the angle of mandible. Trace if any infiltration of submandibular fat is evident. No rim-enhancing collection to suggest abscess. The mandible demonstrates absence of several teeth as in the maxilla. Resection sites/periapical lucency at several of the maxillary teeth noted. There is also periapical lucency at the postsurgical change at the level of the right maxillary lateral incisor (series 4 image 132). The aerodigestive tract is patent. Paranasal sinuses and mastoid air cells clear. Orbits are normal. Vasculature patent. Limited intracranial evaluation within normal limits. No cervical lymphadenopathy though scattered bilateral prominent lymph nodes are noted in the submandibular region, likely reactive. Degenerative changes of the spine. IMPRESSION: 1. No evidence of abscess. 2. Subcutaneous fat infiltration overlying skin thickening likely suggests cellulitis. This does not appear to have an odontogenic etiology along the mandible. 3. Several maxillary teeth are absent with periapical lucency at postsurgical change at the level of the right lateral maxillary incisor. Electronically signed by: Albert Paniagua M.D. 02/28/2019 11:24 AM Dictated: 02/28/19 1119 Transcribed: 02/28/19 1119 PG Care Time/CCT Total # of Minutes Spent Total Time Spent with Patient: Total time spent is greater than 50% in coordination of care (as documented) at patient's floor/unit and/or counseling patient:
[2019-03-03] MEDS: DAPTOmycin 400 MG in SYRINGE 0 ML IV SCH (16:51)
--- NOTE | 2019-03-03 17:42 | Surgery Consultation ---
Date of Consultation March 03, 2019 Assessment & Plan (1) Abscess of chin: History and physical and hospital progress notes reviewed prior to seeing patient. I discussed the risks and benefits of bedside I & D with patient, including, but not limited to bleeding, infection, risk of scaring, risk of need for further procedure- patient elected to proceed with Incision and Drainage of chin abscess. I was able to place 1/4 inch packing and clean 4x4 gauze dressing. Antibiotics per primary service. Pain control per primary service. Dr. Cortes will be in to see patient tomorrow. History of Present Illness Reason for Consultation: Incision and drainage of chin (right side) Attending Physician: Dudley Camarillo History of Present Illness Jayne is a 53-year-old female who was admitted to [facility] hospitalist service for facial cellulitis. Patient states that she presented to [facility] with worsening redness, swelling, and pain of her chin. She states that the area in question started as a small pimple. She had been applying warm compresses to the area, but the swelling, redness and pain continued to get worse. CT scan revealed no evidence of abscess. Patient does have a multiple abscesses. She does have a history of MRSA infection. Patient is currently on Daptomycin and Zosyn. Her white count has been within normal limits since admission. She does state that she will have chills occasionally. Patient has been afebrile since admission. Allergies Allergy/AdvReac Type Severity Reaction Status Date / Time Bactrim Allergy Unknown Unknown Verified 06/09/18 13:46 bee venom protein (honey bee) Allergy Unknown Unknown Verified 03/01/19 12:03 cephalexin Allergy Unknown Unknown Verified 03/01/19 12:03 clindamycin Allergy Unknown Unknown Verified 03/01/19 12:03 diphenhydramine Allergy Unknown Unknown Verified 03/01/19 12:03 erythromycin base Allergy Unknown Unknown Verified 03/01/19 12:03 fluticasone Allergy Unknown Unknown Verified 03/01/19 12:03 milk Allergy Unknown Unknown Verified 03/01/19 12:03 mometasone furoate Allergy Unknown Unknown Verified 03/01/19 12:03 salmeterol Allergy Unknown Unknown Verified 03/01/19 12:03 strawberry Allergy Unknown Unknown Verified 03/01/19 12:03 sulfamethoxazole Allergy Unknown Unknown Verified 03/01/19 12:03 trimethoprim Allergy Unknown Unknown Verified 03/01/19 12:03 PAPER TAPE Allergy Unknown Unknown Uncoded 03/01/19 12:03 Home Medications Home Medications Medication Instructions Recorded Confirmed Type albuterol sulfate 2.5 mg INHALATION QID PRN #0 dose 03/13/17 03/01/19 History aspirin [Aspirin Low Dose] 81 mg PO DAILY #0 03/13/17 03/01/19 History atorvastatin 20 mg PO HS #0 tab 03/13/17 03/01/19 History dulaglutide [Trulicity] 0.75 mg SUBCUT WK #0 03/13/17 03/01/19 History pantoprazole 40 mg PO DAILY #0 tab 03/13/17 03/01/19 History albuterol sulfate [ProAir HFA] 2 puff INHALATION QID PRN 09/27/18 03/01/19 History insulin lispro [Humalog KwikPen 20 units SUBCUT BID 09/27/18 03/01/19 History Insulin] ranolazine ER 1,000 mg 1,000 mg PO BID #60 tab 12/15/18 03/01/19 Rx tablet,extended release,12 hr epinephrine 0.1 mg/0.1 mL 0.1 ml IM ONCE PRN ea 01/05/19 03/01/19 History injection, auto-injector gabapentin 100 mg capsule 200 mg PO BID #0 cap 01/05/19 03/01/19 History oxybutynin chloride ER 10 mg 10 mg PO DAILY #90 tab 01/05/19 03/01/19 History tablet,extended release 24 hr trazodone 50 mg tablet 50 mg PO HS PRN #30 tab 01/05/19 03/01/19 History clindamycin 1 % lotion 1 appln TOPICAL .COMPLEX #60 ml 01/10/19 03/01/19 Rx ferrous sulfate 325 mg (65 mg 325 mg PO DAILY #90 tab 01/21/19 03/01/19 Rx iron) tablet bupropion HCl XL 300 mg 24 hr 300 mg PO QAM 02/08/19 03/01/19 History tablet, extended release insulin glargine (U- 100) 100 38 units SUBCUT HS #0 pen 02/08/19 03/01/19 History unit/mL subcutaneous solution doxycycline hyclate 100 mg PO BID 14 Days #28 tab 02/28/19 03/01/19 Rx Patient History Medical History Venous insufficiency (Acute) Trigger finger (Acute) Systolic murmur (Acute) Overactive bladder (Acute) Morbid obesity (Acute) Hyperlipidemia (Acute) Diabetic neuropathy (Acute) Depression (Acute) DM (diabetes mellitus), type 2 (Acute) Asthma (Acute) Anemia (Acute) Amenorrhea (Acute) Acid reflux (Acute) MRSA (methicillin resistant Staphylococcus aureus) Surgical History History of cardiac cath History of incision and drainage Family History (Reviewed 03/03/19 @ : by Myles Sanchez MD) Other Heart disease Social History (Reviewed 03/03/19 @ : by Myles Sanchez MD) Preferred Language: Guyanese Communication Ability: Effective English Instructor Required: No Beliefs That Will Affect Care: None marital status: Current Living Situation: Family current occupational status: disabled Feels Safe at Home: Yes Smoking Status: Never smoker Second Hand Exposure: No ; Hx Alcohol Use: Yes Alcohol Intake Frequency: Holidays/Special Occasions Hx Substance Use: No Review of Systems Integumentary: as per Subjective / HPI Physical Exam Physical Exam: On physical exam, abscess of right chin. There is swelling, area is red and tender. There is a scab present, where there appears to have been some drainage throughout the day. Area was prepped with iodine swab. 5 cc of 1% Lidocaine injected. Scab removed with forceps and scissors which revealed a small area that was draining. I used a 10 blade to extend that opening. I was able to express a small amount of purulent material. I was not able to obtain a culture. I did debride a small amount of macerated tissue around the opening. 1/4 inch packing was placed. Clean 4x4 with Tegaderm x 2 was applied. Patient was very painful with procedure. Results & Data Vital Signs (Past 12 Hours) Vital Signs Temp Pulse Resp BP BP Pulse Ox 03/03/19 15:54 36.9 C 68 16 109/73 98 03/03/19 11:51 37.1 C 77 18 117/76 95 03/03/19 08:00 37.6 C H 87 16 123/74 94 PG Care Time/CCT Total # of Minutes Spent Total Time Spent with Patient: Total time spent is greater than 50% in coordination of care (as documented) at patient's floor/unit and/or counseling patient:
[2019-03-03] MEDS: KETOROLAC TROMETHAMINE 15 MG/ML VIAL IV PRN (17:48)
[2019-03-03] MEDS: INSULIN GLARGINE SOLOSTAR 100 UNITS/ML 3 ML PEN SC SCH (21:12)
--- NOTE | 2019-03-03 22:47 | Hospitalist Progress Note ---
Date of Service March 03, 2019 Assessment & Plan (1) Facial cellulitis: (1) Facial Cellulitis Patient with cellulitis of the chin, right lateral jaw. She was seen in the ER yesterday with the same. At that time she was given prescription for doxycycline 100 mg p.o. twice daily and instructed to return to care should her pain increase or if she develops systemic evidence of infection. She returns with worsening pain on the right jaw. Overall redness and swelling has improved from yesterday. She remains afebrile but continues to have consistent chills and also developed some nausea. She is having difficulty opening her mouth due to pain. Voice normal, no drooling, airway patent. Presentation does not seem to be consistent with Dre's angina at this point. Per CT yesterday no fluid collection or drainable abscess. Admitted. Will continue with antibiotics. Placed warm compresses. -Broad-spectrum coverage with Zosyn and daptomycin. Patient with history of MRSA skin and soft tissue infection in the past -will consult plastic surgery for incision and drainage as patient is not improving. -Tylenol and Toradol as needed for pain . (2) Hx of diabetes mellitus: Patient reports blood sugars have been running slightly higher than usual which is to be expected in acute infection. Have been less than 200 -Continue Lantus 38 units subcu nightly, insulin sliding scale -Continue Gabapentin for Neuropathy Present on Admission?: Yes (3) Hyperlipidemia: Chronic. Stable -Continue Atorvastatin Present on Admission?: Yes (4) Depression: Stable -Continue Bupoprion -Continue trazodone nightly Present on Admission?: Yes (5) Asthma: Chronic. Stable -Albuterol as needed Present on Admission?: Yes (6) Atypical chest pain: Patient with history of atypical CP. Presently CP free -Continue Ranolazine Prophylaxis: Patient low risk for DVT. Encourage ambulation and IV fluids. Protonix 40 mg p.o. daily Code: Full (2) Hx of diabetes mellitus: (3) Hyperlipidemia: (4) Depression: (5) Asthma: (6) Atypical chest pain: Subjective 53 yo female reports improvement. She no longer has been having pain on her right cheek today and is asking for her diet to be advanced. Patient reports the chin though does not appear to be better. Review of Systems Review of Systems: All systems reviewed & are unremarkable except as noted in HPI & below Physical Exam Physical Exam: General: patient resting comfortably, NAD, non-toxic in appearance, AA&O x 4 Skin: warm, dry, intact, small abscess on chin does not appear to be improving, surrounding erythema. No additional erythema noted on cheek and jawline no longer tender to palpation HEENT: NC/AT, PERRL, EOMI, anicteric sclera, conjunctiva without injection, external ear normal to inspection and nontender, nares patent, difficulty ope arslan mouth secondary to pain, moist mucus membranes, poor dentition, no oropharyngeal lesions, neck supple, trachea midline, no LAD, no thyromegaly, no JVD Heart: +S1/S2, regular, no m/r/g Lungs: equal air entry bilaterally, no rales/rhonchi/wheezes Abd: +BS, soft, NT/ND, no masses/organomegaly/ascites Ext: warm, 2+ pulses in UE/LE bilaterally, no clubbing/cyanosis or edema Neuro: nonfocal, patient AA&O x 4, speech intact, no facial droop, moving all extremities on command with equal strength 5/5 Results & Data Vital Signs (Past 12 Hours) Vital Signs Temp Pulse Resp BP Pulse Ox 03/03/19 15:54 36.9 C 68 16 109/73 98 03/03/19 11:51 37.1 C 77 18 117/76 95 PG Care Time/CCT Total # of Minutes Spent Total Time Spent with Patient: Total time spent is greater than 50% in coordinat ion of care (as documented) at patient's floor/unit and/or counseling patient: (1) Depression Active/Remission status: remission status unspecified Depression Type: major depressive disorder Major depression recurrence: unspecified whether recurrent Qualified Code(s): F32.9 - Major depressive disorder, single episode, unspecified (2) Hyperlipidemia Hyperlipidemia type: unspecified Qualified Code(s): E78.5 - Hyperlipidemia, unspecified (3) Asthma Asthma complication type: uncomplicated Asthma persistence: intermittent Asthma severity: mild Qualified Code(s): J45.20 - Mild intermittent asthma, uncomplicated
[2019-03-04] MEDS: PIPERACILLIN/TAZOBACTAM 4.5 GM in DEXTROSE 5% 100 ML IV SCH ×3 (05:40→21:28)
[2019-03-04 07:26] LABS: Creatinine Clr Calc Pharmacy 87.2 ml/min; Est GFR (African American) 63.1; Est GFR (Non-African American) 54.5
[2019-03-04] MEDS: ASPIRIN 81 MG ECTAB PO SCH (09:04)
[2019-03-04] MEDS: CLINDAMYCIN PHOSPHATE TOPICAL SOLUTION TOP SCH (09:04)
[2019-03-04] MEDS: RANOLAZINE 500 MG ER TAB PO SCH ×2 (09:04→21:11)
[2019-03-04] MEDS: BuPROPion XL 300 MG TABCR PO SCH (09:05)
[2019-03-04] MEDS: FERROUS SULFATE 325 MG TAB PO SCH (09:05)
[2019-03-04] MEDS: OXYBUTYNIN CHLORIDE XL 5 MG TABCR PO SCH (09:05)
[2019-03-04] MEDS: GABAPENTIN 100 MG CAP PO SCH ×2 (09:05→21:11)
[2019-03-04] MEDS: PANTOprazole 40 MG TAB PO SCH (09:05)
--- NOTE | 2019-03-04 09:19 | Surgery Progress Note ---
Date of Service March 04, 2019 Assessment & Plan (1) Abscess of chin: As there was purulent drainage today, I did obtain a culture. Clinically, however, this abscess is most consistent with MRSA infection. Continue packing the wound daily for now. Once unable to be packed, apply Bactroban ointment until healed. She was advised to keep the area covered at all times and not to manipulate the site. Continue intravenous antibiotics for now, discharge planning per hospitalist service. If patient remains admitted through the weekend, I will follow-up on Thursday. If discharged, may follow-up with me or primary care physician in 1 to 2 weeks. (2) MRSA (methicillin resistant Staphylococcus aureus) carrier: (3) DM (diabetes mellitus), type 2: Patrick Godoy is seen today in followup. She was seen last evening by Halina Mary and had I+D performed with minimal return of purulent material. History obtained by Halina last evening is as follows: Jayne is a 53-year-old female who was admitted to [facility] hospitalist service for facial cellulitis. Patient states that she presented to [facility] with worsening redness, swelling, and pain of her chin. She states that the area in question started as a small pimple. She had been applying warm compresses to the area, but the swelling, redness and pain continued to get worse. CT scan revealed no evidence of abscess. Patient does have a multiple abscesses. She does have a history of MRSA infection. Patient is currently on Daptomycin and Zosyn. Her white count has been within normal limits since admission. She does state that she will have chills occasionally. Patient has been afebrile since admission. Today she reports decrease in pain, redness and swelling. She tells me she has a history of acne and MRSA abscesses of her skin which she treats topically with clindamycin lotion. She has used hibiclens soap. Notes she is diabetic, does not know her A1c. Review of Systems Integumentary: as per Subjective / HPI Physical Exam Constitutional: WD/WN, vitals as above Skin: no rashes, warm and dry chin abscess with surrounding erythema and purulent drainage on packing, improved since last evening per patient report Psychiatric: A+Ox3, euthymic affect Results & Data Vital Signs (Past 12 Hours) Vital Signs Temp Pulse Resp BP Pulse Ox 03/04/19 07:13 97.9 F 68 16 105/68 96 03/03/19 23:37 98.4 F 72 18 102/61 93 PG Care Time/CCT Total # of Minutes Spent Total Time Spent with Patient: Total time spent is greater than 50% in coordination of care (as documented) at patient's floor/unit and/or counseling patient:
[2019-03-04] MEDS: INSULIN ASPART 100 UNITS/ML 3 ML PEN SC SCH ×4 (09:36→21:06)
[2019-03-04] MEDS: CARBOHYDRATES FOR HYPOGLYCEMIA PO PRN ×2 (11:56→12:10)
[2019-03-04] MEDS: DAPTOmycin 400 MG in SYRINGE 0 ML IV SCH (17:03)
[2019-03-04] MEDS: INSULIN GLARGINE SOLOSTAR 100 UNITS/ML 3 ML PEN SC SCH (21:07)
--- NOTE | 2019-03-04 22:42 | Hospitalist Progress Note ---
Date of Service March 04, 2019 Assessment & Plan (1) Facial cellulitis: (1) Facial Cellulitis Patient with cellulitis of the chin, right lateral jaw. She was seen in the ER yesterday with the same. At that time she was given prescription for doxycycline 100 mg p.o. twice daily and instructed to return to care should her pain increase or if she develops systemic evidence of infection. She returns with worsening pain on the right jaw. Overall redness and swelling has improved from yesterday. She remains afebrile but continues to have consistent chills and also developed some nausea. She is having difficulty opening her mouth due to pain. Voice normal, no drooling, airway patent. Presentation does not seem to be consistent with Dre's angina at this point. Per CT yesterday no fluid collection or drainable abscess. Admitted. Will continue with antibiotics. Placed warm compresses. -Broad-spectrum coverage with Zosyn and daptomycin. Patient with history of MRSA skin and soft tissue infection in the past S/P I and D. Awaiting culture results. -Tylenol and Toradol as needed for pain . (2) Hx of diabetes mellitus: Patient reports blood sugars have been running slightly higher than usual which is to be expected in acute infection. Have been less than 200 -Continue Lantus 38 units subcu nightly, insulin sliding scale -Continue Gabapentin for Neuropathy Present on Admission?: Yes (3) Hyperlipidemia: Chronic. Stable -Continue Atorvastatin Present on Admission?: Yes (4) Depression: Stable -Continue Bupoprion -Continue trazodone nightly Present on Admission?: Yes (5) Asthma: Chronic. Stable -Albuterol as needed Present on Admission?: Yes (6) Atypical chest pain: Patient with history of atypical CP. Presently CP free -Continue Ranolazine Prophylaxis: Patient low risk for DVT. Encourage ambulation and IV fluids. Protonix 40 mg p.o. daily Code: Full (2) Hx of diabetes mellitus: (3) Hyperlipidemia: (4) Depression: (5) Asthma: (6) Atypical chest pain: Subjective Patient reports beeing anxious about discharge She states she feels better after I and D. Patient though states that below her chin there appears to be another site of induration. Patient reports less pain in her face, and she is able to chew now without any pain. Review of Systems Review of Systems: All systems reviewed & are unremarkable except as noted in HPI & below Physical Exam Physical Exam: General: patient resting comfortably, NAD, non-toxic in appearance, AA&O x 4 Skin: warm, dry, intact, small abscess on chin has decreased in size (after I and D) surrounding erythema. No additional erythema noted on cheek and jawline no longer tender to palpation HEENT: NC/AT, PERRL, EOMI, anicteric sclera, conjunctiva without injection, external ear normal to inspection and nontender, nares patent, difficulty opening mouth secondary to pain, moist mucus membranes, poor dentition, no oropharyngeal lesions, neck supple, trachea midline, no LAD, no thyromegaly, no JVD Heart: +S1/S2, regular, no m/r/g Lungs: equal air entry bilaterally, no rales/rhonchi/wheezes Abd: +BS, soft, NT/ND, no masses/organomegaly/ascites Ext: warm, 2+ pulses in UE/LE bilaterally, no clubbing/cyanosis or edema Neuro: nonfocal, patient AA&O x 4, speech intact, no facial droop, moving all extremities on command with equal strength 5/5 Results & Data Vital Signs (Past 12 Hours) Vital Signs Temp Pulse Resp BP BP Pulse Ox 03/04/19 17:08 105/71 03/04/19 15:53 36.9 C 81 20 99/65 L 95 PG Care Time/CCT Total # of Minutes Spent Total Time Spent with Patient: Total time spent is greater than 50% in c oordination of care (as documented) at patient's floor/unit and/or counseling patient: (1) Depression Active/Remission status: remission status unspecified Depression Type: major depressive disorder Major depression recurrence: unspecified whether recurrent Qualified Code(s): F32.9 - Major depressive disorder, single episode, unspecified (2) Hyperlipidemia Hyperlipidemia type: unspecified Qualified Code(s): E78.5 - Hyperlipidemia, unspecified (3) Asthma Asthma complication type: uncomplicated Asthma persistence: intermittent Asthma severity: mild Qualified Code(s): J45.20 - Mild intermittent asthma, uncomplicated
[2019-03-05] MEDS: PIPERACILLIN/TAZOBACTAM 4.5 GM in DEXTROSE 5% 100 ML IV SCH (06:05)
[2019-03-05] MEDS: ASPIRIN 81 MG ECTAB PO SCH (08:06)
[2019-03-05] MEDS: OXYBUTYNIN CHLORIDE XL 5 MG TABCR PO SCH (08:06)
[2019-03-05] MEDS: FERROUS SULFATE 325 MG TAB PO SCH (08:06)
[2019-03-05] MEDS: RANOLAZINE 500 MG ER TAB PO SCH ×2 (08:07→20:34)
[2019-03-05] MEDS: PANTOprazole 40 MG TAB PO SCH (08:07)
[2019-03-05] MEDS: BuPROPion XL 300 MG TABCR PO SCH (08:07)
[2019-03-05] MEDS: GABAPENTIN 100 MG CAP PO SCH ×2 (08:07→20:34)
[2019-03-05] MEDS: CLINDAMYCIN PHOSPHATE TOPICAL SOLUTION TOP SCH (08:08)
[2019-03-05] MEDS: INSULIN ASPART 100 UNITS/ML 3 ML PEN SC SCH ×4 (08:13→20:34)
[2019-03-05] MEDS: DAPTOmycin 400 MG in SYRINGE 0 ML IV SCH (16:37)
[2019-03-05] MEDS: INSULIN GLARGINE SOLOSTAR 100 UNITS/ML 3 ML PEN SC SCH (20:34)
--- NOTE | 2019-03-05 22:45 | Hospitalist Progress Note ---
Date of Service March 05, 2019 Assessment & Plan (1) Facial cellulitis: (1) Facial Cellulitis Patient with cellulitis of the chin, right lateral jaw. She was seen in the ER yesterday with the same. At that time she was given prescription for doxycycline 100 mg p.o. twice daily and instructed to return to care should her pain increase or if she develops systemic evidence of infection. She returns with worsening pain on the right jaw. Overall redness and swelling has improved from yesterday. She remains afebrile but continues to have consistent chills and also developed some nausea. She is having difficulty opening her mouth due to pain. Voice normal, no drooling, airway patent. Presentation does not seem to be consistent with Dre's angina at this point. Per CT yesterday no fluid collection or drainable abscess. Admitted. Will continue with antibiotics. -Broad-spectrum coverage with daptomycin. Patient with history of MRSA skin and soft tissue infection in the past Stopped zosyn as patient has Staph aureus. Determination of antibiotics will depend on what sensitivites are shown on final culture, Also allergies eliminate some oral options S/P I and D by plastic surgery. Awaiting culture results. If patient requires daptomycin at discharge, will likely require picc line. Hoping this is not MRSA -Tylenol and Toradol as needed for pain . (2) Hx of diabetes mellitus: Patient reports blood sugars have been running slightly higher than usual which is to be expected in acute infection. Have been less than 200 -Continue Lantus 38 units subcu nightly, insulin sliding scale -Continue Gabapentin for Neuropathy Present on Admission?: Yes (3) Hyperlipidemia: Chronic. Stable -Continue Atorvastatin Present on Admission?: Yes (4) Depression: Stable -Continue Bupoprion -Continue trazodone nightly Present on Admission?: Yes (5) Asthma: Chronic. Stable -Albuterol as needed Present on Admission?: Yes (6) Atypical chest pain: Patient with history of atypical CP. Presently CP free -Continue Ranolazine Prophylaxis: Patient low risk for DVT. Encourage ambulation and IV fluids. Protonix 40 mg p.o. daily Code: Full (2) Hx of diabetes mellitus: (3) Hyperlipidemia: (4) Depression: (5) Asthma: (6) Atypical chest pain: Subjective Patient reports no new symptoms. Review of Systems Review of Systems: All systems reviewed & are unremarkable except as noted in HPI & below Physical Exam Physical Exam: General: patient resting comfortably, NAD, non-toxic in appearance, AA&O x 4 Skin: warm, dry, intact, small abscess on chin has decreased in size (after I and D) surrounding erythema. No additional erythema noted on cheek and jawline no longer tender to palpation HEENT: NC/AT, PERRL, EOMI, anicteric sclera, conjunctiva without injection, external ear normal to inspection and nontender, nares patent, moist mucus membranes, poor dentition, no oropharyngeal lesions, neck supple, trachea midline, no LAD, no thyromegaly, no JVD Heart: +S1/S2, regular, no m/r/g Lungs: equal air entry bilaterally, no rales/rhonchi/wheezes Abd: +BS, soft, NT/ND, no masses/organomegaly/ascites Ext: warm, 2+ pulses in UE/LE bilaterally, no clubbing/cyanosis or edema Neuro: nonfocal, patient AA&O x 4, speech intact, no facial droop, moving all extremities on command with equal strength 5/5 Results & Data Vital Signs (Past 12 Hours) Vital Signs Temp Pulse Resp BP Pulse Ox 03/05/19 15:19 36.6 C 78 19 114/76 95 PG Care Time/CCT Total # of Minutes Spent Total Time Spent with Patient: Total time spent is greater than 50% in coordination of care (as documented) at patient's floor/unit and/or counseling patient: (1) Depression Active/Remission status: remission status unspecified Depression Type: major depressive disorder Major depression recurrence: unspecified whether recurrent Qualified Code(s): F32.9 - Major depressive disorder, single episode, unspecified (2) Hyperlipidemia Hyperlipidemia type: unspecified Qualified Code(s): E78.5 - Hyperlipidemia, unspecified (3) Asthma Asthma complication type: uncomplicated Asthma persistence: intermittent Asthma severity: mild Qualified Code(s): J45.20 - Mild intermittent asthma, uncomplicated
[2019-03-06] MEDS: RANOLAZINE 500 MG ER TAB PO SCH ×2 (08:17→20:43)
[2019-03-06] MEDS: PANTOprazole 40 MG TAB PO SCH (08:17)
[2019-03-06] MEDS: BuPROPion XL 300 MG TABCR PO SCH (08:17)
[2019-03-06] MEDS: OXYBUTYNIN CHLORIDE XL 5 MG TABCR PO SCH (08:17)
[2019-03-06] MEDS: FERROUS SULFATE 325 MG TAB PO SCH (08:17)
[2019-03-06] MEDS: GABAPENTIN 100 MG CAP PO SCH ×2 (08:17→20:43)
[2019-03-06] MEDS: ASPIRIN 81 MG ECTAB PO SCH (08:17)
[2019-03-06] MEDS: INSULIN ASPART 100 UNITS/ML 3 ML PEN SC SCH ×4 (08:19→20:44)
[2019-03-06] MEDS: CLINDAMYCIN PHOSPHATE TOPICAL SOLUTION TOP SCH (08:20)
[2019-03-06] MEDS: DAPTOmycin 400 MG in SYRINGE 0 ML IV SCH (17:34)
--- NOTE | 2019-03-06 19:58 | Hospitalist Progress Note ---
Date of Service March 06, 2019 Assessment & Plan (1) Facial cellulitis: (1) Facial Cellulitis MRSA -was resistant to tetracyclines, likely why she failed doxy. Is susceptible to Bactrim, but she notes hives/swelling as a true allergy. Continue daptomycin, likely will need 2 weeks total of antibiotics, will ask ultrasound-guided IV to be placed, working on case management for outpatient coverage, hopefully home tomorrow. Now status post I&D. (2) Hx of diabetes mellitus: Sugars reasonable. Continue current Present on Admission?: Yes (3) Hyperlipidemia: Chronic. Stable -Continue Atorvastatin Present on Admission?: Yes (4) Depression: Stable -Continue Bupoprion -Continue trazodone nightly Present on Admission?: Yes (5) Asthma: Chronic. Stable -Albuterol as needed Present on Admission?: Yes (6) Atypical chest pain: Patient with history of atypical CP. Presently CP free -Continue Ranolazine Prophylaxis: Patient low risk for DVT. Encourage ambulation and IV fluids. Protonix 40 mg p.o. daily Code: Full (2) Hx of diabetes mellitus: (3) Hyperlipidemia: (4) Depression: (5) Asthma: (6) Atypical chest pain: Subjective feeling a bit better, less pain and swelling. would like to go home as soon as possible. no coverage for dapto available to be set up on the weekend Review of Systems Review of Systems: All systems reviewed & are unremarkable except as noted in HPI & below Physical Exam Physical Exam: gen aao pleasant nad. chin w dressing not saturated, very dull surrounding erythema not really all that tender no fluctuance. jaw opens fully and moves without pain or restriction. no focal neuro deficits. Results & Data Vital Signs (Past 12 Hours) Vital Signs Temp Pulse Resp BP Pulse Ox 03/06/19 15:58 98.4 F 110 H 18 120/63 92 PG Care Time/CCT Total # of Minutes Spent Total Time Spent with Patient: Total time spent is greater than 50% in coordination of care (as documented) at patient's floor/unit and/or counseling patient: (1) Hyperlipidemia Hyperlipidemia type: unspecified Qualified Code(s): E78.5 - Hyperlipidemia, unspecified (2) Depression Depression Type: major depressive disorder Major depression recurrence: unspecified whether recurrent Active/Remission status: remission status unspecified Qualified Code(s): F32.9 - Major depressive disorder, single episode, unspecified (3) Asthma Asthma severity: mild Asthma persistence: intermittent Asthma complication type: uncomplicated Qualified Code(s): J45.20 - Mild intermittent asthma, uncomplicated
[2019-03-06] MEDS: INSULIN GLARGINE SOLOSTAR 100 UNITS/ML 3 ML PEN SC SCH (20:43)
[2019-03-07 07:20] LABS: Estimated Average Glucose 128 mg/dl; Hemoglobin A1C 6.1 % (4.5-5.6)
[2019-03-07] MEDS: BuPROPion XL 300 MG TABCR PO SCH (07:39)
[2019-03-07] MEDS: ASPIRIN 81 MG ECTAB PO SCH (07:39)
[2019-03-07] MEDS: FERROUS SULFATE 325 MG TAB PO SCH (07:39)
[2019-03-07] MEDS: OXYBUTYNIN CHLORIDE XL 5 MG TABCR PO SCH (07:39)
[2019-03-07] MEDS: GABAPENTIN 100 MG CAP PO SCH (07:39)
[2019-03-07] MEDS: PANTOprazole 40 MG TAB PO SCH (07:39)
[2019-03-07] MEDS: RANOLAZINE 500 MG ER TAB PO SCH (07:40)
--- NOTE | 2019-03-07 08:59 | Surgery Progress Note ---
Date of Service March 07, 2019 Assessment & Plan (1) Abscess of chin: Infection continues to improve. Discussed with patient packing with iodoform until the wound can no longer be packed, keeping the wound covered. She should continue use of warm compresses. Discussed importance of hand hygiene and use of Hibiclens wash for prevention of further abscesses. Also discussed impact of diabetes on wound healing and infection risk. She has an appointment this week with Cal Cordova after discharge and will discuss. She may follow-up in our office in 1 to 2 weeks. (2) MRSA (methicillin resistant Staphylococcus aureus) carrier: (3) DM (diabetes mellitus), type 2: Patrick Godoy is seen today in follow-up after incision and drainage of an abscess of her right bryan performed on March 03. She feels well, reports that the swelling underneath her chin has significantly improved. Cultures have returned and show MRSA, resistant to doxycycline, sensitive to daptomycin. She is hoping to go home today. Review of Systems Integumentary: as per Subjective / HPI Physical Exam Physical Exam: Improvement in tissue induration right chin, scant purulent drainage. Constitutional: WD/WN, vitals as above Skin: no rashes, warm and dry Psychiatric: A+Ox3, euthymic affect Results & Data Vital Signs (Past 12 Hours) Vital Signs Temp Pulse Resp BP Pulse Ox 03/07/19 07:20 98.1 F 69 16 103/60 97 03/06/19 23:00 98.2 F 69 18 103/60 97 Deep Wound Culture Final 03/06/19-0843 Organism 1 Staph aureus MRSA Quantity Moderate Sens Sensitivities to Follow Sensitivity results indicate a Methicillin-Resistant Staph aureus. Phoned to SERVANDO ESPINO on 03/06/19 at 0707 by Shade Ware. Results were verbalized back. MRSA RX M.I.C. --- --------- Clindamycin R >4 Daptomycin S 1 Erythromycin R >4 Oxacillin R >2 Rifampin S <=1 Tetracycline R >8 Trimeth/Sulfa S <=0.5/9.5 Vancomycin S 2 PG Care Time/CCT Total # of Minutes Spent Total Time Spent with Patient: Total time spent is greater than 50% in coordination of care (as documented) at patient's floor/unit and/or counseling patient:
[2019-03-07] MEDS: CLINDAMYCIN PHOSPHATE TOPICAL SOLUTION TOP SCH (09:10)
[2019-03-07] MEDS: INSULIN ASPART 100 UNITS/ML 3 ML PEN SC SCH ×2 (09:10→12:58)
[2019-03-07] MEDS: DAPTOmycin 400 MG in SYRINGE 0 ML IV SCH (10:29)
[2019-03-07] MEDS: CARBOHYDRATES FOR HYPOGLYCEMIA PO PRN (11:55)
--- NOTE | 2019-03-07 20:36 | Discharge Summary ---
Date of Service March 07, 2019 Admission HPI Per Admitting Provider Jayne Thompson is a pleasant 53yo C female with history of DM-II on insulin therapy, HLP. She had a prior MRSA infection/facial cellulitis with what sounds to be a drainable collection that was treated at [facility] in January,. She reports a small pimple on her chin that started approximately 1 week ago. She popped it and expressed a small amount of purulent drainage. Thursday evening her chin and right lateral neck became swollen and tender. Her swelling progressed through Thursday with some mild involvement of her left lateral chin. She has some pain and chills, otherwise no fevers/nausea/vomiting/malaise. Patient was seen in the ER yesterday. Afebrile, hemodynamically stable, nontoxic in appearance. CT was obtained which revealed no collection. She was discharged home with doxycycline 100 mg p.o. twice daily. Patient took 2 doses of the Doxy. Followed up with her PCP today and was complaining of increased pain on the right jaw. Persistent chills as well as mild nausea. She denies drooling, hoarseness or edema in the mouth. She is having difficulty opening her mouth secondary to pain. Patient had 3 maxillary teeth extracted 1 week ago - uncomplicated procedure. She has been eating a soft diet since then. Minimal pain at extraction site. No bleeding/drainage or fluctuance. Principal Diagnosis MRSA facial cellulitis Discharge Exam General she is awake and alert pleasant no distress. HEENT normocephalic atraumatic mucous membranes moist. Her chin wound is dressed with very mild and dull surrounding erythema no tracking erythema no crepitus. Jaw opens and closes with ease. Neuro shows no focal deficits. Her gait is stable. Breathing unlabored no accessory muscle use good effort. Discharge Data Allergies Allergy/AdvReac Type Severity Reaction Status Date / Time Bactrim Allergy Unknown Unknown Verified 06/09/18 13:46 bee venom protein (honey bee) Allergy Unknown Unknown Verified 03/01/19 12:03 cephalexin Allergy Unknown Unknown Verified 03/01/19 12:03 clindamycin Allergy Unknown Unknown Verified 03/01/19 12:03 diphenhydramine Allergy Unknown Unknown Verified 03/01/19 12:03 erythromycin base Allergy Unknown Unknown Verified 03/01/19 12:03 fluticasone Allergy Unknown Unknown Verified 03/01/19 12:03 milk Allergy Unknown Unknown Verified 03/01/19 12:03 mometasone furoate Allergy Unknown Unknown Verified 03/01/19 12:03 salmeterol Allergy Unknown Unknown Verified 03/01/19 12:03 strawberry Allergy Unknown Unknown Verified 03/01/19 12:03 sulfamethoxazole Allergy Unknown Unknown Verified 03/01/19 12:03 trimethoprim Allergy Unknown Unknown Verified 03/01/19 12:03 PAPER TAPE Allergy Unknown Unknown Uncoded 03/01/19 12:03 Consultations 03/01/19 16:22 Consult Infectious Diseases Routine 03/03/19 14:39 Consult Plastic Surgery Routine 03/06/19 19:53 Consult Case Management - Discharge Planning Routine Hospital Course (1) Facial cellulitis: (1) Facial Cellulitis MRSA -was resistant to tetracyclines, likely why she failed doxy. Now improving on daptomycin, and status post I&D is susceptible to Bactrim, but she notes hives/swelling as a true allergy. Continue daptomycin, likely will need 2 weeks total of antibiotics, set up for home in stable for outpatient [id number]-of PCP, plastic surgery, and infectious disease. Given that she has had recurrent MRSA infections, some strategies to try to cut down on the frequency were outlined.. (2) Hx of diabetes mellitus: Sugars reasonable, A1c quite good. Continue current medications for now, but we discussed at length how lifestyle change can help her regress her degree of insulin resistance and hopefully have the same control with less overall medications. Present on Admission?: Yes (3) Hyperlipidemia: Chronic. Stable -Continue Atorvastatin Present on Admission?: Yes (4) Depression: Stable -Continue Bupoprion -Continue trazodone nightly Present on Admission?: Yes (5) Asthma: Chronic. Stable -Albuterol as needed Present on Admission?: Yes (6) Atypical chest pain: Patient with history of atypical CP. No symptoms since I assumed her care. Appearing stable -Continue Ranolazine Stable for discharge to homeotherwise as above. (2) Hx of diabetes mellitus: (3) Hyperlipidemia: (4) Depression: (5) Asthma: (6) Atypical chest pain: Total Time Total Time Spent Total Time Spent (In Minutes): Greater than 30 Discharge Plan Discharge Items Patient Disposition: Home - Self-Care Reason For Visit: FACIAL CELLULITIS Discharge Diagnosis: MRSA cellulitis (improving) -Fortunately the skin infection is improving nicely, Dr. Cortes ([facility] plastic surgery) would like to see you next week -Because of what antibiotics actually do work to kill the bacteria, combined with your allergies, we will need to finish out a course of treatment with daptomycin 1 dose IV daily, next dose tomorrow, rounding out 14 total days of treatment until you will be done. -We will also want you to try to take steps to remove MRSA from your "regular bacteria" -since you had a difficult time tolerating the other nasal cream, give trial to over the counter bacitracin - put a Q-tip full in each nostril twice a day for 5 days (it's more of an oily ointment than a cream, so while it may not be as effective as the medication you were given before, it should be much more tolerable -if you're able to resume taking chlorhexadine baths, that would be great; if you're unable to get the chlorhexadine or it is unaffordable, a reasonable alternative would be a bleach bath -- one teaspoon of bleach per gallon of water, soak in the tub like this for about fifteen minutes twice a week (as we discussed, this can be drying or irritating on your skin, but if it reduces the MRSA load, it should help to reduce how often you have these infections -we'll also want to have you following up with [facility] infectious disease (Dr Sanchez or Dr Tolentino) to try to help you stay on top of these infections Diabetes -good control of diabetes can help with less infections, because high sugars can suppress your immune system as well as "feed" the bacteria -after we talked, your A1c result came back showing that right now you're actually doing a very good job keeping the sugar in line - your A1c was 6.1% -we'll want you to keep this up; and as we discussed, with positive lifestyle changes, the goal would be to make yourself "less of a diabetic" -we know that when someone eats simple/starchy/sugary carbs, they'll spike a blood sugar; when they do this over and over again their body wants more and more insulin, making diabetes progress. at the same time, eating less of these kinds of foods will actually (if done regularly and over time) have the ability to regress the diabetic metabolism (ie "make yourself less diabetic") -over time, adding in about 20-30mins of light cardio exercise a day (a brisk walk) will also help make you less diabetic -if you're doing all of this, what you'll start to see is that you and your diabetes docs can start to reduce your meds and you'll have the same good control -as we discussed, try checking sugars after eating (maybe 1-2 hours after) -- this will show you a good "cause and effect" of how what you ate impacts your body -- anything above about 150 is a food that you'll want to reconsider! Activity: Resume your previous activity Non-emergency contact: Primary Care Provider and Surgeon Call non-emergency contact if: you have any medication questions and your symptoms worsen Follow-up/Referrals: Margo Cyr CRNP [Primary Care Provider] - Diet: Carb Consistent or DM2 Addtl Attending Provider Instructions: see above Pending Studies at Discharge: No Stand-Alone Forms: My [facility] Medications and DC Order Prescriptions: Continued atorvastatin 20 mg Tablet 20 mg PO HS Qty: 0 RF: 0 albuterol sulfate 2.5 mg /3 mL (0.083 %) Solution For Nebulization 2.5 mg INHALATION QID PRN (Reason: Shortness Of Breath) Qty: 0 RF: 0 aspirin [Aspirin Low Dose] 81 mg Tablet,Delayed Release (Dr/Ec) 81 mg PO DAILY Qty: 0 RF: 0 pantoprazole 40 mg Tablet,Delayed Release (Dr/Ec) 40 mg PO DAILY Qty: 0 RF: 0 Trulicity 0.75 mg/0.5 mL Pen Injector 0.75 mg SUBCUT WK Qty: 0 RF: 0 ranolazine [Ranexa] 1,000 mg tablet extended release 12 hr 1,000 mg PO BID Qty: 60 RF: 5 gabapentin 100 mg capsule 200 mg PO BID Qty: 0 RF: 0 clindamycin phosphate 1 % lotion 1 appln topical .COMPLEX Qty: 60 RF: 1 ferrous sulfate 325 mg (65 mg iron) tablet 325 mg PO DAILY Qty: 90 RF: 3 insulin glargine 100 unit/mL solution 38 units SUBCUT HS Qty: 0 RF: 0 trazodone 50 mg tablet 50 mg PO HS PRN (Reason: insomnia) Qty: 30 RF: 0 oxybutynin chloride 10 mg tablet extended release 24hr 10 mg PO DAILY Qty: 90 RF: 0 epinephrine 0.1 mg/0.1 mL auto-injector 0.1 ml IM ONCE PRN (Reason: anaphylaxis) RF: 0 bupropion HCl [Wellbutrin XL] 300 mg tablet extended release 24 hr 300 mg PO QAM RF: 0 albuterol sulfate [ProAir HFA] 90 mcg/actuation Hfa Aerosol Inhaler 2 puff INHALATION QID PRN (Reason: Shortness Of Breath) RF: 0 insulin lispro [Humalog KwikPen Insulin] 100 unit/mL insulin pen 20 units subcut BID RF: 0 doxycycline hyclate 100 mg tablet 100 mg PO BID 14 Days Qty: 28 RF: 0 Discharge Orders: Discharge Order (Routine); Ordered 03/07/19 Ordered By: Renzo Smith Admission Data Admit Date/Time: 03/02/19 22:49 Attending Provider: Renzo Smith Admit Provider: Dudley Camarillo Primary Care Provider: Margo Cyr Other Providers: Adriana Cortes ; Myles Sanchez ; Dudley Camarillo ; Razia,Jethrox Other Interventions: Discharge Summary Assessment (RN) Last Done: 03/07/19 11:45 DC Date/Time DO NOT enter until pt leaves facility: 03/07/19 13:45
== END 2019-03-07 13:45 | disposition home or self-care (01) | DRG 603 ==
LOC: 4W → SUATTDRO 14:17 → 4W 15:07 → SUATTDRO 03-02 22:49

== ENCOUNTER 2019-10-08 15:09 | Inpatient (IN) ==
[2019-10-08] MEDS ORDERED: ONDANSETRON INJ 2 MG/ML 2 ML VIAL IV STA (15:30)
[2019-10-08] MEDS ORDERED: ACETAMINOPHEN 500 MG TAB PO STA (15:30)
[2019-10-08] MEDS ORDERED: MoRPHine SULFATE 10 MG/ML CARP/VIAL IV STA (15:30)
[2019-10-08] MEDS ORDERED: SODIUM CHLORIDE 0.9% 1000ML 1,000 ML IV SCH (15:31)
[2019-10-08] MEDS ORDERED: LIDO/EPINEPHRINE/SOD BICARB 20 ML VIAL INFIL ONE (15:33)
[2019-10-08] MEDS ORDERED: DAPTOMYCIN CONSULT ACTIVE PRN ×2 (15:35→20:21)
[2019-10-08] MEDS ORDERED: DAPTOmycin 400 MG in SYRINGE 0 ML IV ONE (15:35)
[2019-10-08] MEDS ORDERED: MoRPHine SULFATE 4 MG/ML 1 ML CARP\\VIAL ONE (15:49)
[2019-10-08] MEDS ORDERED: MoRPHine SULFATE 2 MG/ML CARP ONE (15:49)
--- NOTE | 2019-10-08 16:09 | Emergency Department Note ---
History of Present Illness General Chief complaint: Infection, Wound Stated complaint: INFECTION ON BREAST Time Seen by Provider: 10/08/19 15:20 History of Present Illness Maximum Pain Intensity: 7 Patient is a 54-year-old female with past medical history significant for dyslipidemia, diabetes, depression, asthma, GERD and history of MRSA who presents to the emergency department for evaluation of a worsening right breast infection. Patient states that she developed redness, warmth, pain and swelling in the right breast 3 days ago. She has been applying warm compresses, and does note that there was a small area that was draining puslike material. She was seen in her primary care provider's office yesterday where a culture was obtained, and she was placed on doxycycline, she has had 2 doses of the antibiotic. She notes that the redness has spread beyond the area of demarcati on from yesterday, and she admits to feeling poorly today. She is noted to be febrile in triage, patient did not know she was running a fever had was not checking them at home. She has not been taking any medications for discomfort, which she rates a 7/10. She does have a history of MRSA infections in several other areas in the past. She denies any trauma or injury to the breast. Not currently breast feeding. No nipple discharge. She is not up-to-date with her mammograms. She does note that her blood sugars have been running "a little high" over the last few days. Home Medications Home Medications Medication Instructions Recorded Confirmed Type aspirin [Aspirin Low Dose] 81 mg PO DAILY #0 03/13/17 10/08/19 History gabapentin 100 mg capsule 200 mg PO BID #0 cap 01/05/19 10/08/19 History oxybutynin chloride 10 mg 10 mg PO DAILY #90 tab 01/05/19 10/08/19 History tablet,extended release 24 hr ferrous sulfate 325 mg (65 mg 325 mg PO DAILY #90 tab 01/21/19 10/08/19 Rx iron) tablet bupropion HCl 300 mg 24 hr tablet, 300 mg PO QAM 02/08/19 10/08/19 History extended release albuterol sulfate 90 mcg/actuation 2 puff INHALATION QID PRN #18 gm 04/20/19 10/08/19 Rx aerosol inhaler albuterol sulfate 2.5 mg INH Q4H PRN #75 ml 04/25/19 10/08/19 Rx clindamycin phosphate 1 % lotion 1 appln TOPICAL DAILY #60 ml 05/11/19 10/08/19 Rx atorvastatin 20 mg tablet 20 mg PO HS #90 tab 06/07/19 10/08/19 Rx pantoprazole 40 mg tablet,delayed 40 mg PO DAILY #90 tab 06/07/19 10/08/19 Rx release epinephrine 0.3 mg/0.3 mL 0.3 mg IM Q15M PRN #2 ea 06/21/19 10/08/19 Rx injection, auto-injector hydrocodone-acetaminophen [[place]] 1 - 2 tab PO Q6H PRN #20 tab 07/27/19 10/08/19 Rx dulaglutide 1.5 mg/0.5 mL 1.5 mg SQ WEEKLY #2 ml 08/19/19 10/08/19 Rx subcutaneous pen injector insulin glargine 100 unit/mL 40 units SUBCUT HS #5 pen 09/09/19 10/08/19 Rx subcutaneous solution insulin lispro 100 unit/mL 20 unit SUBCUT BID #15 ml 09/09/19 10/08/19 Rx subcutaneous pen doxycycline hyclate 100 mg capsule 100 mg PO BID 10 Days #20 cap 10/07/19 10/08/19 Rx Allergies Allergy/AdvReac Type Severity Reaction Status Date / Time metformin Allergy Severe Hives Verified 10/07/19 13:50 Bactrim Allergy Unknown Unknown Verified 06/09/18 13:46 bee venom protein (honey bee) Allergy Unknown Unknown Verified 09/29/19 12:55 cephalexin Allergy Unknown Unknown Verified 09/29/19 12:55 clindamycin Allergy Unknown Unknown Verified 09/29/19 12:55 diphenhydramine Allergy Unknown Unknown Verified 09/29/19 12:55 erythromycin base Allergy Unknown Unknown Verified 09/29/19 12:55 fluticasone Allergy Unknown Unknown Verified 09/29/19 12:55 milk Allergy Unknown Unknown Verified 09/29/19 12:55 mometasone furoate Allergy Unknown Unknown Verified 09/29/19 12:55 salmeterol Allergy Unknown Unknown Verified 09/29/19 12:55 strawberry Allergy Unknown Unknown Verified 09/29/19 12:55 sulfamethoxazole Allergy Unknown Unknown Verified 09/29/19 12:55 trimethoprim Allergy Unknown Unknown Verified 09/29/19 12:55 Penicillins Allergy Unknown Verified 10/07/19 14:26 PAPER TAPE Allergy Unknown Unknown Uncoded 09/29/19 12:55 Past Med/Surg History Medical History Acid reflux (Chronic) Anemia (Chronic) Asthma (Chronic) Depression (Chronic) Diabetic neuropathy (Chronic) DM (diabetes mellitus), type 2 (Chronic) Hyperlipidemia (Chronic) Morbid obesity (Chronic) MRSA (methicillin resistant Staphylococcus aureus) Overactive bladder (Chronic) Venous insufficiency (Acute) Surgical History H/O section History of cardiac cath History of colonoscopy History of dilation and curettage History of eye surgery History of hysteroscopy History of incision and drainage History of umbilical hernia repair Social History Preferred Language: Turkish Communication Ability: Effective 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 Beliefs That Will Affect Care: None marital status: Current Living Situation: Family Current Living Situation Comment: Lives with Child current occupational status: unemployed and disabled Feels Safe at Home: Yes Smoking Status: Never smoker Second Hand Exposure: Yes ; Hx Alcohol Use: Yes Alcohol Intake Frequency: Holidays/Special Occasions Hx Substance Use: No Dental Care, Regularly: No Physical Activity Frequency: 3-4 Times per Week Sunscreen Use: No Review of Systems A total of 10 systems reviewed and were otherwise negative Physical Exam Vital Signs Vital Signs - 24 hr 10/08/19 15:14 10/08/19 16:55 Temperature 37.8 C H Temperature Source Oral Pulse Rate 98 H Pulse Rate [Apical] 88 Respiratory Rate 18 24 Respiratory Effort / Characteristics Non-Labored Respiratory Depth Normal Respiratory Pattern Regular Blood Pressure 119/65 Blood Pressure [Left Arm] 101/57 L Blood Pressure Mean 83 Blood Pressure Mean [Left Arm] 71 Blood Pressure Position Sitting Pulse Oximetry 95 94 Oxygen Delivery Method Room Air Room Air Sepsis Recent Fever Within 48 Hours Yes Sepsis New/Unexplained Change in Mental Status No Sepsis Action Taken by Nursing No Action Required CONSTITUTIONAL: Patient is an obese, ill although nontoxic appearing 54-year-old female who is awake and alert and in mild distress due to her stated complaint. Temperature 37.8 C orally in triage. EYES: Pupils equal, round, reactive to light and accommodation. EOMs intact without nystagmus. Sclera are anicteric. ENT: Tympanic membranes intact, with normal landmarks. External canals are clear. Oral and nasopharynx are clear. Mucous membranes are moist, no lesions, tongue and gums appear normal. CARDIOVASCULAR: Regular rate and rhythm. Peripheral pulses easily palpable. RESPIRATORY: Breath sounds equal and clear to auscultation. INTEGUMENTARY: Examination of the right breast note a large area of erythema, increased warmth and induration consistent with cellulitis, from 9:00 to 4:00. Breast is large and pendulous. The nipple is spared. The inferior quadrants of the breast do not appear to be involved. She has an area medially that appears to be denuded, and is slightly more indurated than the remainder of the breast, and has a scant amount of purulent drainage present. There is faint streaking to the axilla. Right axillary lymph nodes are enlarged and slightly tender. The erythema has extended greater than 3-4 cm past the pen line from her primary care appointment from yesterday. LYMPH: Right axillary lymphadenopathy present. Procedures Abscess I/D Site: other (breast) Side (if applicable): right Sedation/analgesia: other (IV morphine 6 mg) Local Anesthetic: lidocaine 1%, with epi and with bicarb Amount of anesthesia used (mL): 6 Technique: incised with #11 blade Irrigation: Yes (100cc NSS) Packing used?: plain (soaked in Betadine) Complications: other (none) Course Course The patient was seen and assessed as above. Old records were reviewed. She presents to the emergency department for evaluation of a worsening right breast abscess/cellulitis, she has been on doxycycline for 24 hours. A swab of the drainage from her right breast from yesterday is growing Staph aureus, sensitivities are pending. IV lock was initiated and laboratory studies were collected. CBC with differential, BMP, lactic acid and blood cultures x2 were obtained. She was medicated with morphine and Zofran and hydrated with normal saline solution. I&D was performed as noted above, please refer to separate procedure note. Patient tolerated the procedure well. The patient was given daptomycin 400 mg IV. Patient history and presentation were reviewed with physician. All diagnostic imaging studies were reviewed with the patient. Given the worsening appearance of the breast, the patient's multiple antibiotic allergies and patient's current clinical picture (fever, malaise) it was felt that further care in house was warranted, including IV antibiotics. The patient was agreeable. Laboratory studies noted an elevated white count at 13,200 with left shift, no bandemia. No anemia. Electrolytes are within normal limits. Lactic acid is 1.1. Glucose noted to be elevated at 278. Blood cultures x2 and wound culture status post I&D are pending. Patient was reviewed with the dba manager, and admission/observation was discussed with the [facility] Hospitalist Service. Patient was reviewed with Dr. Smtih. Administered Medications Discontinued Medications Acetaminophen (Tylenol) 1,000 mg PO NOW STA Stop: 10/08/19 15:31 Last Admin: 10/08/19 16:08 Dose: 1,000 mg Documented by: [id number] Sodium Chloride (Nss 1000ml) 1,000 mls @ 999 mls/hr IV .Q1H1M CHRISTINE Stop: 10/08/19 16:31 Last Admin: 10/08/19 16:13 Dose: 999 mls/hr Documented by: [id number] Daptomycin 400 mg/ Syringe 8 mls @ 4 mls/min IV NOW ONE; Protocol Stop: 10/08/19 15:36 Last Admin: 10/08/19 16:13 Dose: 4 mls/min Documented by: [id number] Lidocaine/Epinephrine (Buffered Xylocaine/Epinephrine 1%) 20 ml INFIL NOW ONE Stop: 10/08/19 15:34 Last Admin: 10/08/19 16:08 Dose: 20 ml Documented by: [id number] Morphine Sulfate (Morphine Sulfate) 6 mg IV NOW STA Stop: 10/08/19 15:31 Last Admin: 10/08/19 16:12 Dose: 6 mg Documented by: [id number] Morphine Sulfate (Morphine Sulfate) Confirm Administered Dose 4 mg .ROUTE .STK- MED ONE Stop: 10/08/19 15:50 Last Admin: 10/08/19 16:09 Dose: Not Given Documented by: [id number] Morphine Sulfate (Morphine Sulfate) Confirm Administered Dose 2 mg .ROUTE .STK- MED ONE Stop: 10/08/19 15:50 Last Admin: 10/08/19 16:09 Dose: Not Given Documented by: [id number] Ondansetron HCl (Zofran) 4 mg IV NOW STA Stop: 10/08/19 15:31 Last Admin: 10/08/19 16:12 Dose: 4 mg Documented by: [id number] Medical Decision Making Differential Diagnosis Differential diagnoses entertained included cellulitis, abscess, mass or mal ignancy, sepsis, among others. Medical Records Attestation: I reviewed the patient's medical records. Home Medications Current Medication List: was personally reviewed by me Laboratory Data Attestation: I reviewed the patient's lab results. Result diagrams: 10/08/19 16:13 10/08/19 16:13 Lab Results 10/08/19 10/08/19 10/08/19 Range/Units 16:13 16:13 16:13 WBC 13.22 H (4.8-10.8) K/uL RBC 4.57 (4.2-5.4) M/uL Hgb 13.3 (12.0-16.0) g/dL Hct 41.0 (37-47) % MCV 89.7 (80-100) fL MCH 29.1 (25-34) pg MCHC 32.4 (32-36) g/dL RDW Std Deviation 45.8 (36.4-46.3) fL RDW Coeff of Lan 14.0 (11.5-14.5) % Plt Count 204 (130-400) K/uL MPV 10.4 (7.4-10.4) fL Immature Gran % (Auto) 0.2 % Neut % (Auto) 80.5 % Lymph % (Auto) 10.8 % [place] % (Auto) 8.1 % Eos % (Auto) 0.3 % Baso % (Auto) 0.1 % Immature Gran # (Auto) 0.02 (0.00-0.02) K/uL Neut # (Auto) 10.65 H (1.4-6.5) K/uL Lymph # (Auto) 1.43 (1.2-3.4) K/uL [place] # (Auto) 1.07 H (0.11-0.59) K/uL Eos # (Auto) 0.04 (0-0.5) K/uL Baso # (Auto) 0.01 (0-0.2) K/uL Sodium 135 L (136-145) mmol/L Potassium 4.3 (3.5-5.1) mmol/L Chloride 101 (98-107) mmol/L Carbon Dioxide 28 (21-32) mmol/L Anion Gap 5.0 (3-11) BUN 18 (7-18) mg/dl Creatinine 1.07 (0.6-1.2) mg/dl Est Cr Clr Drug Dosing 97.1 ml/min Est GFR ( Amer) 69.1 Est GFR (Non-Af Amer) 59.6 BUN/Creatinine Ratio 16.4 (10-20) Glucose 278 H (70-99) mg/dl Lactate 1.1 (0.4-2.0) mmol/L Calcium 9.0 (8.5-10.1) mg/dl Blood Pressure Blood Pressure Findings: Normal blood pressure Blood Pressure Disposition: did not require urgent referral MDM Narrative See ED Course. Impression & Plan Cellulitis of right breast, Abscess of right breast, MRSA (methicillin resistant Staphylococcus aureus) carrier, Allergy to multiple antibiotics Discharge Plan Visit Data Chief Complaint: Infection, Wound Stated Complaint: INFECTION ON BREAST ED Provider: Lilliam Pino ED Midlevel Provider: London Castillo Discharge Problem: Cellulitis of right breast, Abscess of right breast, MRSA (methicillin resistant Staphylococcus aureus) carrier, Allergy to multiple antibiotics Patient Disposition: Being Evaluated by Hospitalist Forms Stand Alone Forms: My [facility] [employer] Prescriptions Prescriptions: No Action aspirin [Aspirin Low Dose] 81 mg Tablet,Delayed Release (Dr/Ec) 81 mg PO DAILY Qty: 0 RF: 0 gabapentin 100 mg capsule 200 mg PO BID Qty: 0 RF: 0 ferrous sulfate 325 mg (65 mg iron) tablet 325 mg PO DAILY Qty: 90 RF: 3 albuterol sulfate 2.5 mg /3 mL (0.083 %) solution for nebulization 2.5 mg INH Q4H PRN (Reason: shortness of breath or wheezing) Qty: 75 RF: 5 clindamycin phosphate 1 % lotion 1 appln topical DAILY Qty: 60 RF: 1 atorvastatin 20 mg tablet 20 mg PO HS Qty: 90 RF: 3 pantoprazole 40 mg tablet,delayed release (DR/EC) 40 mg PO DAILY Qty: 90 RF: 3 epinephrine [EpiPen] 0.3 mg/0.3 mL auto-injector 0.3 mg IM Q15M PRN (Reason: anaphylaxis) Qty: 2 RF: 3 Trulicity 1.5 mg/0.5 mL pen injector 1.5 mg SQ WEEKLY Qty: 2 RF: 5 insulin lispro [Humalog KwikPen Insulin] 100 unit/mL insulin pen 20 unit subcut BID Qty: 15 RF: 1 insulin glargine 100 unit/mL solution 40 units SUBCUT HS Qty: 5 RF: 3 albuterol sulfate [ProAir HFA] 90 mcg/actuation HFA aerosol inhaler 2 puff INHALATION QID PRN (Reason: Shortness Of Breath) Qty: 18 RF: 3 oxybutynin chloride 10 mg tablet extended release 24hr 10 mg PO DAILY Qty: 90 RF: 0 doxycycline hyclate 100 mg capsule 100 mg PO BID 10 Days Qty: 20 RF: 0 bupropion HCl [Wellbutrin XL] 300 mg tablet extended release 24 hr 300 mg PO QAM RF: 0 hydrocodone-acetaminophen [[place]] 5-325 mg tablet 1 - 2 tab PO Q6H PRN (Reason: pain) Qty: 20 RF: 0 Referrals Referrals: Margo Cyr CRNP [Primary Care Provider] -
[2019-10-08 16:24] LABS: Basophils # (auto) 0.01 K/uL (0-0.2); Basophils % (auto) 0.1 %; Eosinophils # (auto) 0.04 K/uL (0-0.5); Eosinophils % (auto) 0.3 %; Hemoglobin 13.3 g/dL (12.0-16.0); Immature Granulocytes # (auto) 0.02 K/uL (0.00-0.02); Immature Granulocytes % (auto) 0.2 %; Lymphocytes # (auto) 1.43 K/uL (1.2-3.4); Lymphocytes % (auto) 10.8 %; Mean Corpuscular Hemoglobin 29.1 pg (25-34); Mean Corpuscular Hgb Conc 32.4 g/dL (32-36); Mean Corpuscular Volume 89.7 fL (80-100); Mean Platelet Volume 10.4 fL (7.4-10.4); Monocytes # (auto) 1.07 K/uL (0.11-0.59); Monocytes % (auto) 8.1 %; Neutrophils # (auto) 10.65 K/uL (1.4-6.5); Neutrophils % (auto) 80.5 %; Platelet Count 204 K/uL (130-400); RDW Standard Deviation 45.8 fL (36.4-46.3); Red Blood Count 4.57 M/uL (4.2-5.4); White Blood Count 13.22 K/uL (4.8-10.8)
[2019-10-08 16:39] LABS: BUN Creatinine Ratio 16.4 (10-20); Creatinine Clr Calc Pharmacy 97.1 ml/min; Est GFR (African American) 69.1; Est GFR (Non-African American) 59.6; Potassium 4.3 mmol/L (3.5-5.1)
--- NOTE | 2019-10-08 16:59 | Emergency Department Note ---
ED Visit Note Patient seen and evaluated bedside after discussion with the physician delivery assistant. Please refer to her note for additional details. Patient aware of all results and was in agreement with the plan. Patient denies worsening pain or recurrent fevers at this time. Patient does have a history of recurrent cellulitis/abscess. Patient also is a diabetic, with a history of MRSA. No evidence of bacteremia/sepsis at this time. The physician delivery assistant discussed the case with the hospitalist bromination equipment operator for Laurita Chamberlain. Pt seen during a time of high acuity and national emergency pandemic while wearing PPE. .
--- NOTE | 2019-10-08 17:25 | History & Physical Report ---
Date of Service October 08, 2019 Assessment & Plan (1) Cellulitis of right breast: 54 yo F with PMH HLD, DM2 on insulin therapy w/ neuropathy, depression, asthma, GERD and history of MRSA (last in Feb 2019) presents with concerns of R breast infection. Right Breast Abscess/Cellulitis -On admission, febrile with WBC 13.2 -h/o of MRSA + wounds in the several different spots in the past. Feb 2019 resistant to clindamycin and tetracycline, and pt is allergic to Bactrim -contact precautions -s/p I&D in ED. Cont packing daily, appreciate wound care consult -R breast deep wound cx growing S. aureus- sensitivities pending -blood cx pending -cont IV Daptomycin. Hold PO Doxy started as oupt -chlorhexidine in hopes of decolonizing her from MRSA moving forward -holding off on PICC line once sensitivities obtained -pain management with Tylenol and Toradol as needed for pain. IV Morphine for severe pain . Warm compresses -consider allergy testing referral upon d/c for consideration of antibiotic allergy desensitization (Dr. Topete) -appreciate ID consult HLD -cont atorvastatin 20mg Depresssion -cont buproprion 300mg DM2 w/ Neuropathy -reports BSG's have been running higher than usual which is to be expected in acute infection -hold home regimen. SSI -cont gabapentin 200mg BID Asthma -Chronic, stable -Albuterol prn GERD -cont pantoprazole 40mg FEN/GI: HH/DM2 Diet DVT Prophylaxis: Lovenox SQ Conditional Code: DNI Only Dispo: Med Surg. Contact Precautions History of Present Illness Chief Complaint: breast wound Primary Care Provider: ANTOINE Carvalho 54 yo F with PMH dyslipidemia, diabetes, depression, asthma, GERD and history of MRSA (last in Feb 2019) presents with concerns of R breast infection. Hx MRSA + wounds in the several different spots in the past. 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 Pt was seen by PCP yesterday for similar. Complaints of pain, swelling and redness to R medial breast area that began 3 days ago. Notes discharge of purulent material and R breast is hot to touch and painful. Pain level 7/10 at worst. Relieved somewhat with warm compresses, has not tried anything else in the way of medications. PCP obtained culture and pt was placed on doxycycline, which she has taken for past 24hrs. Since PCP visit, redness has spread beyond what doctor had marked with pen. Notes BSG have been running higher than normal past few days. Pt otherwise denies fevers, chills, trauma, breast feeding (has 2 children ages 1 and 5), nipple discharge, nipple inversion. Last mammogram was several years ago at [facility], has yet to f/u or reschedule. Pt with no other acute concerns or complaints. Pertinent Labs: WBC 13.2, Na 135, Glu 278, LA WNL 1.1 ER Course: IV Tylenol 1g, IV Daptomycin 400mg, IV Morphine 6mg, IV Zofran, NSS. I&D performed Allergies Allergy/AdvReac Type Severity Reaction Status Date / Time metformin Allergy Severe Hives Verified 10/07/19 13:50 Bactrim Allergy Unknown Unknown Verified 06/09/18 13:46 bee venom protein (honey bee) Allergy Unknown Unknown Verified 09/29/19 12:55 cephalexin Allergy Unknown Unknown Verified 09/29/19 12:55 clindamycin Allergy Unknown Unknown Verified 09/29/19 12:55 diphenhydramine Allergy Unknown Unknown Verified 09/29/19 12:55 erythromycin base Allergy Unknown Unknown Verified 09/29/19 12:55 fluticasone Allergy Unknown Unknown Verified 09/29/19 12:55 milk Allergy Unknown Unknown Verified 09/29/19 12:55 mometasone furoate Allergy Unknown Unknown Verified 09/29/19 12:55 salmeterol Allergy Unknown Unknown Verified 09/29/19 12:55 strawberry Allergy Unknown Unknown Verified 09/29/19 12:55 sulfamethoxazole Allergy Unknown Unknown Verified 09/29/19 12:55 trimethoprim Allergy Unknown Unknown Verified 09/29/19 12:55 Penicillins Allergy Unknown Verified 10/07/19 14:26 PAPER TAPE Allergy Unknown Unknown Uncoded 09/29/19 12:55 Home Medications Home Medications Medication Instructions Recorded Confirmed Type aspirin [Aspirin Low Dose] 81 mg PO DAILY #0 03/13/17 10/08/19 History gabapentin 100 mg capsule 200 mg PO BID #0 cap 01/05/19 10/08/19 History oxybutynin chloride 10 mg 10 mg PO DAILY #90 tab 01/05/19 10/08/19 History tablet,extended release 24 hr ferrous sulfate 325 mg (65 mg 325 mg PO DAILY #90 tab 01/21/19 10/08/19 Rx iron) tablet bupropion HCl 300 mg 24 hr tablet, 300 mg PO QAM 02/08/19 10/08/19 History extended release albuterol sulfate 90 mcg/actuation 2 puff INHALATION QID PRN #18 gm 04/20/19 10/08/19 Rx aerosol inhaler albuterol sulfate 2.5 mg INH Q4H PRN #75 ml 04/25/19 10/08/19 Rx clindamycin phosphate 1 % lotion 1 appln TOPICAL DAILY #60 ml 05/11/19 10/08/19 Rx atorvastatin 20 mg tablet 20 mg PO HS #90 tab 06/07/19 10/08/19 Rx pantoprazole 40 mg tablet,delayed 40 mg PO DAILY #90 tab 06/07/19 10/08/19 Rx release epinephrine 0.3 mg/0.3 mL 0.3 mg IM Q15M PRN #2 ea 06/21/19 10/08/19 Rx injection, auto-injector hydrocodone-acetaminophen [[place]] 1 - 2 tab PO Q6H PRN #20 tab 07/27/19 10/08/19 Rx dulaglutide 1.5 mg/0.5 mL 1.5 mg SQ WEEKLY #2 ml 08/19/19 10/08/19 Rx subcutaneous pen injector insulin glargine 100 unit/mL 40 units SUBCUT HS #5 pen 09/09/19 10/08/19 Rx subcutaneous solution insulin lispro 100 unit/mL 20 unit SUBCUT BID #15 ml 09/09/19 10/08/19 Rx subcutaneous pen doxycycline hyclate 100 mg capsule 100 mg PO BID 10 Days #20 cap 10/07/19 10/08/19 Rx Past Med/Surg History Medical History Acid reflux (Chronic) Anemia (Chronic) Asthma (Chronic) Depression (Chronic) Diabetic neuropathy (Chronic) DM (diabetes mellitus), type 2 (Chronic) Hyperlipidemia (Chronic) Morbid obesity (Chronic) MRSA (methicillin resistant Staphylococcus aureus) Overactive bladder (Chronic) Venous insufficiency (Acute) Surgical History H/O section History of cardiac cath History of colonoscopy History of dilation and curettage History of eye surgery History of hysteroscopy History of incision and drainage History of umbilical hernia repair Social History Preferred Language: Haitian Communication Ability: Effective Sheep Shearer Required: No Beliefs That Will Affect Care: None marital status: Current Living Situation: Family Current Living Situation Comment: Lives with Child current occupational status: unemployed and disabled Feels Safe at Home: Yes Smoking Status: Never smoker Second Hand Exposure: Yes ; Hx Alcohol Use: Yes Alcohol Intake Frequency: Holidays/Special Occasions Hx Substance Use: No Dental Care, Regularly: No Physical Activity Frequency: 3-4 Times per Week Sunscreen Use: No Review of Systems Review of Systems: All systems reviewed & are unremarkable except as noted in HPI & below Physical Exam Constitutional: + ill appearing and + morbidly obese Eyes: PERRL, conjunctivae normal, anicteric sclerae ENMT: external ear and nose normal, oropharynx normal Respiratory: normal respiratory effort, lungs clear to auscultation Cardiovascular: RRR, no murmur, no edema Skin: R breast findings consistent with cellulitic picture Large area of erythema. Area marked with pen R breast TTP, warm to touch Incision packed, bloody d/c present No nipple d/c. No inversion Psychiatric: A+Ox3, euthymic affect Lymphatic: + lymphadenopathy (R axillary lymph node enlarged, TTP) Results & Data Results & Data ([facility]) Vital Signs (Past 12 Hours) Vital Signs Temp Pulse Pulse Resp BP BP Pulse Ox 10/08/19 16:55 88 24 101/57 L 94 10/08/19 15:14 37.8 C H 98 H 18 119/65 95 Laboratory Results Laboratory Results - last 24 hr 10/08/19 10/08/19 10/08/19 16:13 16:13 16:13 WBC 13.22 H RBC 4.57 Hgb 13.3 Hct 41.0 MCV 89.7 MCH 29.1 MCHC 32.4 RDW Std Deviation 45.8 RDW Coeff of Lan 14.0 Plt Count 204 MPV 10.4 Immature Gran % (Auto) 0.2 Neut % (Auto) 80.5 Lymph % (Auto) 10.8 [place] % (Auto) 8.1 Eos % (Auto) 0.3 Baso % (Auto) 0.1 Immature Gran # (Auto) 0.02 Neut # (Auto) 10.65 H Lymph # (Auto) 1.43 [place] # (Auto) 1.07 H Eos # (Auto) 0.04 Baso # (Auto) 0.01 Sodium 135 L Potassium 4.3 Chloride 101 Carbon Dioxide 28 Anion Gap 5.0 BUN 18 Creatinine 1.07 Est Cr Clr Drug Dosing 97.1 Est GFR ( Amer) 69.1 Est GFR (Non-Af Amer) 59.6 BUN/Creatinine Ratio 16.4 Glucose 278 H Lactate 1.1 Calcium 9.0 Medications Administered Current Inpatient Medications Miscellaneous Information (Consult) 1 ea N/A UD PRN PRN Reason: Consult Stop: 11/07/19 15:34 Code Status & VTE Plan Code Status DNI Only Supervising Physician Co-Signing Physician Notes I personally examined the patient and verified all rodriguez points of history and exam, discussed case, and agree with decision making with Dr Khan. R breast red swollen painful. fevers. drainage. culture growing staph from yesterday, prior MRSA. was on doxy x1 days but worsening - came to ER vitals noted nad heent nc at mmm. R breast almost entirely indurated, area of prior drainage now packed, no other clear areas of fluctuance noted breast cellulitis w abscess - mutlple allergies, long hx of MRSA - can't say for sure failed doxy after such a short time, but with infection progressing and many prior strains of her MRSA tetracycline resistant - dapto pending full ID &S, unfortunately highly likely to need PICC for ongoing dapto. continue to follow for need for ongoing drainage/further abscess etc, wound for packing changes. outpt breast w/u as cancer screenings have fallen behind. has tried many decolonizing strategies, chlorhexadine has been most effective, although not totally so. ?refer to allergy as outpt for desensitization if possible? otherwise as above Resident Activity Tracking Resident Involvement: Resident Care Provided Care Provided: Adult Hospital Medicine
--- NOTE | 2019-10-08 18:06 | Billing Data ---
Date of Service October 08, 2019 Coding Level of Care Code 44810 Initial Inpt Care Lvl 3
[2019-10-08] MEDS ORDERED: ALBUTEROL 0.083% NEBU SOLN 3 ML VIAL INH PRN (20:21)
[2019-10-08] MEDS ORDERED: CARBOHYDRATES FOR HYPOGLYCEMIA PO PRN (20:21)
[2019-10-08] MEDS ORDERED: KETOROLAC 30 MG/ML VIAL IV PRN (20:21)
[2019-10-08] MEDS ORDERED: ONDANSETRON INJ 2 MG/ML 2 ML VIAL IV PRN (20:21)
[2019-10-08] MEDS ORDERED: EPINEPHrine INJ 1 MG/ML AMP IM PRN (20:21)
[2019-10-08] MEDS ORDERED: GLUCOSE 10 TABS/TUBE PO PRN (20:21)
[2019-10-08] MEDS ORDERED: ALUMINUM/MAGNESIUM SUSP 30 ML UDC PO PRN (20:21)
[2019-10-08] MEDS ORDERED: DEXTROSE 50% 50 ML SYRINGE IV PRN (20:21)
[2019-10-08] MEDS ORDERED: GLUCAGON FOR INJ 1 MG VIAL SQ PRN (20:21)
[2019-10-08] MEDS ORDERED: GLUCOSE 40% GEL 15 GM TUBE PO PRN (20:21)
[2019-10-08] MEDS ORDERED: MoRPHine SULFATE 2 MG/ML CARP IV PRN (20:21)
[2019-10-08] MEDS: GABAPENTIN 100 MG CAP PO SCH (21:23)
[2019-10-08] MEDS: ATORVASTATIN 20 MG TAB PO SCH (21:24)
[2019-10-08] MEDS: INSULIN GLARGINE SOLOSTAR 100 UNITS/ML 3 ML PEN SC SCH (21:27)
[2019-10-08] MEDS: INSULIN ASPART 100 UNITS/ML 3 ML PEN SC SCH (21:27)
[2019-10-09] MEDS: ACETAMINOPHEN 325 MG TAB PO PRN ×2 (06:30→23:57)
[2019-10-09 07:45] LABS: Basophils # (auto) 0.02 K/uL (0-0.2); Basophils % (auto) 0.2 %; Eosinophils # (auto) 0.14 K/uL (0-0.5); Eosinophils % (auto) 1.4 %; Hematocrit (blood only) 36.2 % (37-47); Hemoglobin 11.8 g/dL (12.0-16.0); Immature Granulocytes # (auto) 0.02 K/uL (0.00-0.02); Immature Granulocytes % (auto) 0.2 %; Lymphocytes % (auto) 14.2 %; Mean Corpuscular Hemoglobin 29.1 pg (25-34); Mean Corpuscular Hgb Conc 32.6 g/dL (32-36); Mean Corpuscular Volume 89.4 fL (80-100); Mean Platelet Volume 10.1 fL (7.4-10.4); Monocytes # (auto) 0.77 K/uL (0.11-0.59); Monocytes % (auto) 7.8 %; Neutrophils # (auto) 7.53 K/uL (1.4-6.5); Neutrophils % (auto) 76.2 %; Platelet Count 160 K/uL (130-400); RDW Standard Deviation 45.9 fL (36.4-46.3); Red Blood Count 4.05 M/uL (4.2-5.4); White Blood Count 9.88 K/uL (4.8-10.8)
[2019-10-09 08:09] LABS: BUN Creatinine Ratio 18.1 (10-20); Calcium 8.4 mg/dl (8.5-10.1); Creatinine Clr Calc Pharmacy 141.6 ml/min; Est GFR (Non-African American) 93.1; Potassium 3.8 mmol/L (3.5-5.1)
[2019-10-09] MEDS ORDERED: DAPTOmycin 500 MG VIAL IV ONE (09:00)
[2019-10-09] MEDS: INSULIN ASPART 100 UNITS/ML 3 ML PEN SC SCH ×4 (09:00→21:05)
[2019-10-09] MEDS: INSULIN GLARGINE SOLOSTAR 100 UNITS/ML 3 ML PEN SC SCH ×2 (09:02→21:02)
[2019-10-09] MEDS: OXYBUTYNIN CHLORIDE XL 5 MG TABCR PO SCH (09:03)
[2019-10-09] MEDS: BuPROPion XL 300 MG TABCR PO SCH (09:04)
[2019-10-09] MEDS: PANTOprazole 40 MG TAB PO SCH (09:04)
[2019-10-09] MEDS: ASPIRIN 81 MG ECTAB PO SCH (09:05)
[2019-10-09] MEDS: FERROUS SULFATE 325 MG TAB PO SCH (09:05)
[2019-10-09] MEDS: GABAPENTIN 100 MG CAP PO SCH ×2 (09:05→21:04)
[2019-10-09] MEDS: ENOXAPARIN INJ 40 MG/0.4 ML SYR SQ SCH (09:06)
[2019-10-09] MEDS: DAPTOmycin 400 MG in SYRINGE 0 ML IV SCH (15:34)
--- NOTE | 2019-10-09 15:35 | Hospitalist Progress Note ---
Date of Service October 09, 2019 Assessment & Plan (1) Cellulitis of right breast: 54 yo F with PMH HLD, DM2 on insulin therapy w/ neuropathy, depression, asthma, GERD and history of MRSA (last in Feb 2019) presents with concerns of R breast infection. Right Breast Abscess/Cellulitis -On admission, febrile with WBC 13.2 -h/o of MRSA + wounds in the several different spots in the past. Feb 2019 resistant to clindamycin and tetracycline, and pt is allergic to Bactrim -contact precautions -s/p I&D in ED. Cont packing daily, appreciate wound care consult -R breast deep wound cx growing S. aureus- sensitivities reviewed: resistant to clindamycin and tetracycline again. -blood cx pending -cont IV Daptomycin. Hold PO Doxy started as oupt -chlorhexidine in hopes of decolonizing her from MRSA moving forward -PICC line required for IV Dapto. Pt consented, order placed -pain management with Tylenol and Toradol as needed for pain. IV Morphine for severe pain . Warm compresses -consider allergy testing referral upon d/c for consideration of antibiotic allergy desensitization (Dr. Topete) -appreciate ID consult HLD -cont atorvastatin 20mg Depresssion -cont buproprion 300mg DM2 w/ Neuropathy -reports BSG's have been running higher than usual which is to be expected in acute infection -hold home regimen. SSI -cont gabapentin 200mg BID Asthma -Chronic, stable -Albuterol prn GERD -cont pantoprazole 40mg FEN/GI: HH/DM2 Diet DVT Prophylaxis: Lovenox SQ Conditional Code: DNI Only Dispo: Med Surg. Contact Precautions. CM to assist in d/c planning for IV Dapto needs. Admission and Anticipated Discharge Date Admission Date: October 08, 2019 Supervising Physician Co-Signing Physician Notes I personally examined the patient and verified all rodriguez points of history and exam, discussed case, and agree with decision making with Dr Khan. breast still painful and swollen but red area less than before. no fevers. unfortunately culture not only MRSA but resistant to tetracyclines. vitals noted nad heent nc at mmm. R breast almost entirely indurated but margins of outlined area far less red/more pink/fading and nothing has exceeded margins. packed area with some thick looking drainage breast cellulitis w abscess - mutlple allergies, long hx of MRSA - dapto likely x10-14 days given allergies and resistances creating few viable options. PICC consult. continue to follow for need for ongoing drainage/further abscess etc, wound for packing changes. outpt breast w/u as cancer screenings have fallen behind. has tried many decolonizing strategies, chlorhexadine has been most e ffective, although not totally so. ?refer to allergy as outpt for desensitization if possible? is showing improvement - once PICC in and dapto set up for home, as long as wound can continue to be followed and clinical exams for any evidence of recurrent abscess (such as in the office) then she could hopefully be able to go home otherwise as above Subjective 54 yo F found in bed this afternoon in NAD. Reports some chills and ongoing TTP over R breast. Erythema has not spread through pen margins made yesterday. Pt with no other acute concerns or complaints. Consented to PICC line. Review of Systems Review of Systems: All systems reviewed & are unremarkable except as noted in HPI & below Physical Exam Constitutional: + ill appearing and + obese Eyes: PERRL, conjunctivae normal, anicteric sclerae ENMT: external ear and nose normal, oropharynx normal Respiratory: normal respiratory effort, lungs clear to auscultation Cardiovascular: RRR, no murmur, no edema Skin: R breast findings consistent with cellulitic picture Large area of erythema. Area marked with pen. Has not spread R breast TTP, warm to touch Incision packed, bloody d/c present No nipple d/c. No inversion Psychiatric: A+Ox3, euthymic affect Lymphatic: + lymphadenopathy (R axillary lymph node enlarged, TTP) Results & Data Results & Data ([facility]) Vital Signs (Past 12 Hours) Vital Signs Temp Pulse Resp BP Pulse Ox 10/09/19 07:16 36.9 C 83 15 135/63 92 Laboratory Results Laboratory Results - last 24 hr 10/08/19 10/08/19 10/08/19 16:13 16:13 16:13 WBC 13.22 H RBC 4.57 Hgb 13.3 Hct 41.0 MCV 89.7 MCH 29.1 MCHC 32.4 RDW Std Deviation 45.8 RDW Coeff of Lan 14.0 Plt Count 204 MPV 10.4 Immature Gran % (Auto) 0.2 Neut % (Auto) 80.5 Lymph % (Auto) 10.8 [place] % (Auto) 8.1 Eos % (Auto) 0.3 Baso % (Auto) 0.1 Immature Gran # (Auto) 0.02 Neut # (Auto) 10.65 H Lymph # (Auto) 1.43 [place] # (Auto) 1.07 H Eos # (Auto) 0.04 Baso # (Auto) 0.01 Sodium 135 L Potassium 4.3 Chloride 101 Carbon Dioxide 28 Anion Gap 5.0 BUN 18 Creatinine 1.07 Est Cr Clr Drug Dosing 97.1 Est GFR ( Amer) 69.1 Est GFR (Non-Af Amer) 59.6 BUN/Creatinine Ratio 16.4 Glucose 278 H POC Glucose Estimat Average Glucose Hemoglobin A1c Lactate 1.1 Calcium 9.0 10/08/19 10/09/19 10/09/19 20:23 07:34 07:34 WBC 9.88 RBC 4.05 L Hgb 11.8 L Hct 36.2 L MCV 89.4 MCH 29.1 MCHC 32.6 RDW Std Deviation 45.9 RDW Coeff of Lan 14.0 Plt Count 160 MPV 10.1 Immature Gran % (Auto) 0.2 Neut % (Auto) 76.2 Lymph % (Auto) 14.2 [place] % (Auto) 7.8 Eos % (Auto) 1.4 Baso % (Auto) 0.2 Immature Gran # (Auto) 0.02 Neut # (Auto) 7.53 H Lymph # (Auto) 1.40 [place] # (Auto) 0.77 H Eos # (Auto) 0.14 Baso # (Auto) 0.02 Sodium 137 Potassium 3.8 Chloride 106 Carbon Dioxide 25 Anion Gap 6.0 BUN 13 Creatinine 0.74 D Est Cr Clr Drug Dosing 141.6 Est GFR ( Amer) 108.0 Est GFR (Non-Af Amer) 93.1 BUN/Creatinine Ratio 18.1 Glucose 166 H POC Glucose 211 H Estimat Average Glucose Hemoglobin A1c Lactate Calcium 8.4 L 10/09/19 10/09/19 10/09/19 07:34 07:45 11:41 WBC RBC Hgb Hct MCV MCH MCHC RDW Std Deviation RDW Coeff of Lan Plt Count MPV Immature Gran % (Auto) Neut % (Auto) Lymph % (Auto) [place] % (Auto) Eos % (Auto) Baso % (Auto) Immature Gran # (Auto) Neut # (Auto) Lymph # (Auto) [place] # (Auto) Eos # (Auto) Baso # (Auto) Sodium Potassium Chloride Carbon Dioxide Anion Gap BUN Creatinine Est Cr Clr Drug Dosing Est GFR ( Amer) Est GFR (Non-Af Amer) BUN/Creatinine Ratio Glucose POC Glucose 179 H 161 H Estimat Average Glucose Pending Hemoglobin A1c Pending Lactate Calcium Medications Administered Current Inpatient Medications Acetaminophen (Tylenol) 650 mg PO Q4H PRN PRN Reason: pain/fever Stop: 11/07/19 20:20 Last Admin: 10/09/19 06:30 Dose: 650 mg Documented by: Al Hydrox/Mg Hydrox/Simethicone (Maalox) 30 ml PO Q6H PRN PRN Reason: Dyspepsia Stop: 11/07/19 20:20 Albuterol (Ventolin 0.083% 2.5mg/3ml) 2.5 mg INH Q4R PRN PRN Reason: shortness of breath or wheezing Stop: 11/07/19 20:20 Aspirin (Ecotrin Ectab) 81 mg PO DAILY [facility] Stop: 11/08/19 08:59 Last Admin: 10/09/19 09:05 Dose: 81 mg Documented by: Atorvastatin Calcium (Lipitor) 20 mg PO HS [facility] Stop: 11/07/19 20:59 Last Admin: 10/08/19 21:24 Dose: 20 mg Documented by: Bupropion HCl (Wellbutrin-Xl) 300 mg PO QAM [facility] Stop: 11/08/19 08:59 Last Admin: 10/09/19 09:04 Dose: 300 mg Documented by: Dextrose (Dextrose 50%) 25 - 50 ml IV UD PRN; Protocol PRN Reason: Hypoglycemia Protocol Stop: 11/07/19 20:20 Enoxaparin Sodium (Lovenox) 40 mg SQ QAM [facility] Stop: 11/08/19 08:59 Last Admin: 10/09/19 09:06 Dose: 40 mg Documented by: Epinephrine HCl (Epinephrine) 0.3 mg IM Q15M PRN PRN Reason: anaphylaxis Stop: 11/07/19 20:20 Ferrous Sulfate (Feosol) 325 mg PO DAILY [facility] Stop: 11/08/19 08:59 Last Admin: 10/09/19 09:05 Dose: 325 mg Documented by: Gabapentin (Neurontin) 200 mg PO BID [facility] Stop: 11/07/19 20:59 Last Admin: 10/09/19 09:05 Dose: 200 mg Documented by: Glucagon (Glucagen) 1 mg SQ UD PRN; Protocol PRN Reason: Hypoglycemia Protocol Stop: 11/07/19 20:20 Glucose (Dex4 Glucose) 4 - 8 tabs PO UD PRN; Protocol PRN Reason: Hypoglycemia Protocol Stop: 11/07/19 20:20 Glucose (Glucose 40%) 15 - 30 gm PO UD PRN; Protocol PRN Reason: Hypoglycemia Protocol Stop: 11/07/19 20:20 Daptomycin 400 mg/ Syringe 8 mls @ 4 mls/min IV DAILY@1600 CHRISTINE; Protocol Stop: 10/15/19 15:59 Insulin Aspart (Novolog Flexpen) 0 units SC ACHS [facility] Stop: 11/07/19 20:59 Last Admin: 10/09/19 12:11 Dose: 12 units Documented by: Insulin Glargine (Lantus Solostar Pen) 29 units SC BID [facility] Stop: 11/07/19 20:59 Last Admin: 10/09/19 09:02 Dose: 29 units Documented by: Ketorolac Tromethamine (Toradol) 30 mg IV Q6H PRN PRN Reason: Pain Stop: 10/13/19 20:20 Miscellaneous (Carbohydrates For Hypoglycemia) 15 - 30 gm PO UD PRN PRN Reason: Hypoglycemia Protocol Stop: 11/07/19 20:20 Miscellaneous Information (Consult) 1 ea N/A UD PRN PRN Reason: Consult Stop: 11/07/19 20:20 Morphine Sulfate (Morphine Sulfate) 2 mg IV Q4H PRN PRN Reason: Severe Pain Stop: 10/22/19 20:20 Ondansetron HCl (Zofran) 4 mg IV Q6H PRN PRN Reason: Nausea Stop: 11/07/19 20:20 Oxybutynin Chloride (Ditropan Xl) 10 mg PO DAILY [facility] Stop: 11/08/19 08:59 Last Admin: 10/09/19 09:03 Dose: 10 mg Documented by: Pantoprazole Sodium (Protonix) 40 mg PO DAILY [facility] Stop: 11/08/19 08:59 Last Admin: 10/09/19 09:04 Dose: 40 mg Documented by: Resident Activity Tracking Resident Involvement: Resident Care Provided Care Provided: Adult Hospital Medicine
--- NOTE | 2019-10-09 19:14 | Billing Data ---
Date of Service October 09, 2019 Coding Level of Care Code 01457 Subseq Hosp Care Lvl 3
[2019-10-09] MEDS: ATORVASTATIN 20 MG TAB PO SCH (21:03)
[2019-10-10] MEDS: ACETAMINOPHEN 325 MG TAB PO PRN (06:38)
[2019-10-10 06:56] LABS: Basophils # (auto) 0.01 K/uL (0-0.2); Basophils % (auto) 0.1 %; Eosinophils # (auto) 0.13 K/uL (0-0.5); Eosinophils % (auto) 1.8 %; Hematocrit (blood only) 37.3 % (37-47); Hemoglobin 12.2 g/dL (12.0-16.0); Immature Granulocytes # (auto) 0.01 K/uL (0.00-0.02); Immature Granulocytes % (auto) 0.1 %; Lymphocytes # (auto) 1.47 K/uL (1.2-3.4); Mean Corpuscular Hemoglobin 29.3 pg (25-34); Mean Corpuscular Hgb Conc 32.7 g/dL (32-36); Mean Corpuscular Volume 89.4 fL (80-100); Mean Platelet Volume 10.6 fL (7.4-10.4); Monocytes % (auto) 9.5 %; Neutrophils # (auto) 5.02 K/uL (1.4-6.5); Neutrophils % (auto) 68.5 %; Platelet Count 185 K/uL (130-400); RDW Standard Deviation 45.9 fL (36.4-46.3); Red Blood Count 4.17 M/uL (4.2-5.4); White Blood Count 7.34 K/uL (4.8-10.8)
[2019-10-10 07:24] LABS: BUN Creatinine Ratio 13.5 (10-20); Calcium 8.2 mg/dl (8.5-10.1); Creatinine Clr Calc Pharmacy 136.1 ml/min; Est GFR (African American) 102.9; Est GFR (Non-African American) 88.8; Potassium 3.8 mmol/L (3.5-5.1)
[2019-10-10 07:59] LABS: Estimated Average Glucose 160 mg/dl; Hemoglobin A1C 7.2 % (4.5-5.6)
[2019-10-10] MEDS: OXYBUTYNIN CHLORIDE XL 5 MG TABCR PO SCH (08:25)
[2019-10-10] MEDS: FERROUS SULFATE 325 MG TAB PO SCH (08:25)
[2019-10-10] MEDS: BuPROPion XL 300 MG TABCR PO SCH (08:25)
[2019-10-10] MEDS: PANTOprazole 40 MG TAB PO SCH (08:25)
[2019-10-10] MEDS: ASPIRIN 81 MG ECTAB PO SCH (08:25)
[2019-10-10] MEDS: INSULIN GLARGINE SOLOSTAR 100 UNITS/ML 3 ML PEN SC SCH ×2 (08:26→21:01)
[2019-10-10] MEDS: ENOXAPARIN INJ 40 MG/0.4 ML SYR SQ SCH (08:26)
[2019-10-10] MEDS: INSULIN ASPART 100 UNITS/ML 3 ML PEN SC SCH ×4 (08:29→21:02)
[2019-10-10] MEDS: GABAPENTIN 100 MG CAP PO SCH ×2 (09:33→21:00)
--- NOTE | 2019-10-10 12:07 | Infectious Disease Consult ---
Date of Consultation October 10, 2019 Assessment & Plan (1) Cellulitis of right breast: will continue dapto but with worsening cellulitis would suggest ct scan and likely need for debridement. will follow. (2) Abscess of right breast: History of Present Illness Attending Physician: Lorna Yen MD pt admitted with right breast cellulitis, has h/o MRSA infection, was on doxy, culture done 10/06 and 10/07 - growing MRSA, resistant to clinda and doxy. now on dapto, tolerating well. had bedside I&D in ER, wound eval pending. states she remains with significant pain in breast. no f/c. has been afebrile. wbc 7. no imaging done Allergies Allergy/AdvReac Type Severity Reaction Status Date / Time metformin Allergy Severe Hives Verified 10/07/19 13:50 adhesive tape Allergy Unknown PAPER TAPE Verified 10/08/19 20:35 - Unknown Bactrim Allergy Unknown Unknown Verified 06/09/18 13:46 bee venom protein (honey bee) Allergy Unknown Unknown Verified 09/29/19 12:55 cephalexin Allergy Unknown Unknown Verified 09/29/19 12:55 clindamycin Allergy Unknown Unknown Verified 09/29/19 12:55 diphenhydramine Allergy Unknown Unknown Verified 09/29/19 12:55 erythromycin base Allergy Unknown Unknown Verified 09/29/19 12:55 fluticasone Allergy Unknown Unknown Verified 09/29/19 12:55 milk Allergy Unknown Unknown Verified 09/29/19 12:55 mometasone furoate Allergy Unknown Unknown Verified 09/29/19 12:55 salmeterol Allergy Unknown Unknown Verified 09/29/19 12:55 strawberry Allergy Unknown Unknown Verified 09/29/19 12:55 sulfamethoxazole Allergy Unknown Unknown Verified 09/29/19 12:55 trimethoprim Allergy Unknown Unknown Verified 09/29/19 12:55 Penicillins Allergy Unknown Verified 10/07/19 14:26 Home Medications Home Medications Medication Instructions Recorded Confirmed Type aspirin [Aspirin Low Dose] 81 mg PO DAILY #0 03/13/17 10/08/19 History gabapentin 100 mg capsule 200 mg PO BID #0 cap 01/05/19 10/08/19 History oxybutynin chloride 10 mg 10 mg PO DAILY #90 tab 01/05/19 10/08/19 History tablet,extended release 24 hr ferrous sulfate 325 mg (65 mg 325 mg PO DAILY #90 tab 01/21/19 10/08/19 Rx iron) tablet bupropion HCl 300 mg 24 hr tablet, 300 mg PO QAM 02/08/19 10/08/19 History extended release albuterol sulfate 90 mcg/actuation 2 puff INHALATION QID PRN #18 gm 04/20/19 10/08/19 Rx aerosol inhaler albuterol sulfate 2.5 mg INH Q4H PRN #75 ml 04/25/19 10/08/19 Rx clindamycin phosphate 1 % lotion 1 appln TOPICAL DAILY #60 ml 05/11/19 10/08/19 Rx atorvastatin 20 mg tablet 20 mg PO HS #90 tab 06/07/19 10/08/19 Rx pantoprazole 40 mg tablet,delayed 40 mg PO DAILY #90 tab 06/07/19 10/08/19 Rx release epinephrine 0.3 mg/0.3 mL 0.3 mg IM Q15M PRN #2 ea 06/21/19 10/08/19 Rx injection, auto-injector hydrocodone-acetaminophen [[place]] 1 - 2 tab PO Q6H PRN #20 tab 07/27/19 10/08/19 Rx dulaglutide 1.5 mg/0.5 mL 1.5 mg SQ WEEKLY #2 ml 08/19/19 10/08/19 Rx subcutaneous pen injector insulin glargine 100 unit/mL 40 units SUBCUT HS #5 pen 09/09/19 10/08/19 Rx subcutaneous solution insulin lispro 100 unit/mL 20 unit SUBCUT BID #15 ml 09/09/19 10/08/19 Rx subcutaneous pen doxycycline hyclate 100 mg capsule 100 mg PO BID 10 Days #20 cap 10/07/19 10/08/19 Rx daptomycin 400 mg IV DAILY 12 Days #12 ea 10/10/19 Rx Patient History Medical History Acid reflux (Chronic) Anemia (Chronic) Asthma (Chronic) Depression (Chronic) Diabetic neuropathy (Chronic) DM (diabetes mellitus), type 2 (Chronic) Hyperlipidemia (Chronic) Morbid obesity (Chronic) MRSA (methicillin resistant Staphylococcus aureus) Overactive bladder (Chronic) Venous insufficiency (Acute) Surgical History H/O section History of cardiac cath History of colonoscopy History of dilation and curettage History of eye surgery History of hysteroscopy History of incision and drainage History of umbilical hernia repair Family History Aunt Breast cancer Other Heart disease Denies family history of Ovarian cancer Prostate cancer Myocardial infarction Social History Preferred Language: Kyrgyz Communication Ability: Effective Fisher Trap Required: No Beliefs That Will Affect Care: None marital status: Current Living Situation: Family and Significant Other Current Living Situation Comment: Lives with Child current occupational status: unemployed and disabled Feels Safe at Home: Yes Smoking Status: Former smoker Second Hand Exposure: Yes ; Hx Alcohol Use: No Hx Substance Use: No Dental Care, Regularly: No Physical Activity Frequency: 3-4 Times per Week Sunscreen Use: No Review of Systems Review of Systems: All systems reviewed & are unremarkable except as noted in HPI & below Physical Exam Constitutional: WD/WN, vitals as above Eyes: PERRL, conjunctivae normal, anicteric sclerae ENMT: external ear and nose normal, oropharynx normal Neck: normal visual inspection Respiratory: normal respiratory effort, lungs clear to auscultation Cardiovascular: RRR, no murmur, no edema Gastrointestinal (Abdomen): normal bowel sounds, soft, nontender, no hepatosplenomegaly Musculoskeletal: no cyanosis or clubbing, extremities motor strength 5/5 Skin: no rashes, warm and dry + induration, + wound and + erythema (worsening erythema of breast, extending beyond line drawn) significant erythema, induration and discoloration (no necrosis but darkened tissue) of right breast Psychiatric: A+Ox3, euthymic affect Results & Data ([facility]) Vital Signs (Past 12 Hours) Vital Signs Temp Pulse Resp BP Pulse Ox 10/10/19 07:16 36.8 C 81 18 107/70 93 Laboratory Results Microbiology 10/08/19 16:38 Breast,Right Gram Stain - Final 10/08/19 16:38 Breast,Right Deep Wound Culture - Final Staph aureus MRSA 10/08/19 16:19 Blood Aerobic Blood Culture - Preliminary No growth in Aerobic bottle after 24 hours. 10/08/19 16:19 Blood Anaerobic Blood Culture - Preliminary No growth in Anaerobic bottle after 24 hours. 10/08/19 16:13 Blood Aerobic Blood Culture - Preliminary No growth in Aerobic bottle after 24 hours. 10/08/19 16:13 Blood Anaerobic Blood Culture - Preliminary No growth in Anaerobic bottle after 24 hours. PG Care Time/CCT Total # of Minutes Spent Total Time Spent with Patient: Total time spent is greater than 50% in coordination of care (as documented) at patient's floor/unit and/or counseling patient: Coding Level of Care Code 19527 Inpt Consult Level 4 Diagnoses Cellulitis of right breast N61.0 Abscess of right breast N61.1
--- NOTE | 2019-10-10 15:51 | Surgery Consultation ---
Date of Consultation October 10, 2019 Assessment & Plan (1) Mastitis in female: unable to tell if there is persistent or new abcess collection b/c of pt's body habitus. will obtain CT scan... may need US guided drainage or open drainage in OR if fluid collection present. History of Present Illness Attending Physician: Lorna Yen MD History of Present Illness Pt with a history of prior right breast MRSA infections. presents with increasing redness/tenderness of right breast for several days. had an I & D performed 2 days ago in the ER but the primary team is concerned the infection is getting worse. Allergies Allergy/AdvReac Type Severity Reaction Status Date / Time metformin Allergy Severe Hives Verified 10/07/19 13:50 adhesive tape Allergy Unknown PAPER TAPE Verified 10/08/19 20:35 - Unknown Bactrim Allergy Unknown Unknown Verified 06/09/18 13:46 bee venom protein (honey bee) Allergy Unknown Unknown Verified 09/29/19 12:55 cephalexin Allergy Unknown Unknown Verified 09/29/19 12:55 clindamycin Allergy Unknown Unknown Verified 09/29/19 12:55 diphenhydramine Allergy Unknown Unknown Verified 09/29/19 12:55 erythromycin base Allergy Unknown Unknown Verified 09/29/19 12:55 fluticasone Allergy Unknown Unknown Verified 09/29/19 12:55 milk Allergy Unknown Unknown Verified 09/29/19 12:55 mometasone furoate Allergy Unknown Unknown Verified 09/29/19 12:55 salmeterol Allergy Unknown Unknown Verified 09/29/19 12:55 strawberry Allergy Unknown Unknown Verified 09/29/19 12:55 sulfamethoxazole Allergy Unknown Unknown Verified 09/29/19 12:55 trimethoprim Allergy Unknown Unknown Verified 09/29/19 12:55 Penicillins Allergy Unknown Verified 10/07/19 14:26 Home Medications Home Medications Medication Instructions Recorded Confirmed Type aspirin [Aspirin Low Dose] 81 mg PO DAILY #0 03/13/17 10/08/19 History gabapentin 100 mg capsule 200 mg PO BID #0 cap 01/05/19 10/08/19 History oxybutynin chloride 10 mg 10 mg PO DAILY #90 tab 01/05/19 10/08/19 History tablet,extended release 24 hr ferrous sulfate 325 mg (65 mg 325 mg PO DAILY #90 tab 01/21/19 10/08/19 Rx iron) tablet bupropion HCl 300 mg 24 hr tablet, 300 mg PO QAM 02/08/19 10/08/19 History extended release albuterol sulfate 90 mcg/actuation 2 puff INHALATION QID PRN #18 gm 04/20/19 10/08/19 Rx aerosol inhaler albuterol sulfate 2.5 mg INH Q4H PRN #75 ml 04/25/19 10/08/19 Rx clindamycin phosphate 1 % lotion 1 appln TOPICAL DAILY #60 ml 05/11/19 10/08/19 Rx atorvastatin 20 mg tablet 20 mg PO HS #90 tab 06/07/19 10/08/19 Rx pantoprazole 40 mg tablet,delayed 40 mg PO DAILY #90 tab 06/07/19 10/08/19 Rx release epinephrine 0.3 mg/0.3 mL 0.3 mg IM Q15M PRN #2 ea 06/21/19 10/08/19 Rx injection, auto-injector hydrocodone-acetaminophen [[place]] 1 - 2 tab PO Q6H PRN #20 tab 07/27/19 10/08/19 Rx dulaglutide 1.5 mg/0.5 mL 1.5 mg SQ WEEKLY #2 ml 08/19/19 10/08/19 Rx subcutaneous pen injector insulin glargine 100 unit/mL 40 units SUBCUT HS #5 pen 09/09/19 10/08/19 Rx subcutaneous solution insulin lispro 100 unit/mL 20 unit SUBCUT BID #15 ml 09/09/19 10/08/19 Rx subcutaneous pen doxycycline hyclate 100 mg capsule 100 mg PO BID 10 Days #20 cap 10/07/19 10/08/19 Rx daptomycin 400 mg IV DAILY 12 Days #12 ea 10/10/19 Rx Patient History Medical History Acid reflux (Chronic) Anemia (Chronic) Asthma (Chronic) Depression (Chronic) Diabetic neuropathy (Chronic) DM (diabetes mellitus), type 2 (Chronic) Hyperlipidemia (Chronic) Morbid obesity (Chronic) MRSA (methicillin resistant Staphylococcus aureus) Overactive bladder (Chronic) Venous insufficiency (Acute) Surgical History H/O section History of cardiac cath History of colonoscopy History of dilation and curettage History of eye surgery History of hysteroscopy History of incision and drainage History of umbilical hernia repair Family History Aunt Breast cancer Other Heart disease Denies family history of Ovarian cancer Prostate cancer Myocardial infarction Social History Preferred Language: Egyptian Communication Ability: Effective 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 Beliefs That Will Affect Care: None marital status: Current Living Situation: Family and Significant Other Current Living Situation Comment: Lives with Child current occupational status: unemployed and disabled Feels Safe at Home: Yes Smoking Status: Former smoker Second Hand Exposure: Yes ; Hx Alcohol Use: No Hx Substance Use: No Dental Care, Regularly: No Physical Activity Frequency: 3-4 Times per Week Sunscreen Use: No Review of Systems Review of Systems: All systems reviewed & are unremarkable except as noted in HPI & below Physical Exam Constitutional: WD/WN, vitals as above + morbidly obese; no acute distress and not ill appearing Eyes: PERRL, conjunctivae normal, anicteric sclerae EOM intact bilaterally ENMT: external ear and nose normal, oropharynx normal Ears: no hearing impairment Neck: trachea midline, no thyromegaly Respiratory: normal respiratory effort; no respiratory distress and does not use accessory muscles Cardiovascular: Rate/Rhythm: regular rate and regular rhythm Chest (Breasts): Additional Comments: large/pendulous breast. large area extending from the medial side of the breast where the I & D was performed around to the lateral side. warm. moderately tender. area of I & D with small amount of primarily serous fluid. Gastrointestinal (Abdomen): normal bowel sounds, soft, nontender, no hepatosplenomegaly Skin: no rashes, warm and dry Psychiatric: Orientation: alert, oriented x 3 and cooperative Results & Data Vital Signs (Past 12 Hours) Vital Signs Temp Pulse Resp BP Pulse Ox 10/10/19 15:39 37 C 81 18 119/72 96 10/10/19 07:16 36.8 C 81 18 107/70 93 PG Care Time/CCT Total # of Minutes Spent Total Time Spent with Patient: Total time spent is greater than 50% in coordination of care (as documented) at patient's floor/unit and/or counseling patient: Coding Level of Care Code 99954 Inpt Consult Level 4 Diagnoses Mastitis in female N61.0
[2019-10-10] MEDS: DAPTOmycin 400 MG in SYRINGE 0 ML IV SCH (16:09)
--- NOTE | 2019-10-10 17:00 | Family Medicine Progress Note ---
Date of Service October 10, 2019 Assessment & Plan (1) Abscess of right breast: 54-year-old female was admitted on 08 Oct 2019 for concerns for a right breast infection. 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 Was on IV daptomycin at the time. For this breast infection, was started on doxycycline by PCP as outpt prior to admit. Has multiple antibiotic allergies. 16May wound cx growing MDR S. aureus and patient has multiple antibiotic allergies. Admit BCx NGTD. Also getting daily packing, warm compresses, and chlorhexidine wipes. Since admit, worsening induration and ongoing symptoms (pain, tenderness). - Had ? endurance catheter placed for prolonged antibiotics. Presently on daptomycin. Held doxy on admit. - 18May ID note recommended continuing daptomycin and to get CT scan. This is pending. - Due to size of involved area, consulted general surgery (see their note). Also recommended CT scan. - Wound management following as well. - Pain management with Tylenol, Toradol, morphine (all prn). Minimal use thus far. - Patient says she is on track to see Dr. Topete (allergy/immunology) at the end of September for possible allergic desensitization. Anemia: Admit Hb 13.3, stable around 12. MCV normal range. No evidence of acute bleeding. Consider recheck as outpatient as well as confirm she is up-to-date on routine cancer screenings. On daily home iron supplementation. Ongoing medical issues: - HLD: On home atorvastatin. - DM2, diabetic neuropathy: Reported recent blood sugar elevations, likely due to her infection. 17May HbA1c 7.2. On home ASA 81 and gabapentin. Held home dulaglutide. Held home glargine 40 units q HS and lispro 20 units BID. --- On lantus 29 units BID and novolog sliding scale here. Glucose ranges have been between 140-180 - Asthma: Stable. On albuterol prn. - GERD: On home pantoprazole. - Morbid obesity: BMI 64. - Overactive bladder: On home oxybutynin. - Varicose veins: Has bandage to LLE. Says is on track for related procedure in October. - Depression: On home bupropion. Code Status: Conditional code --- Yes to chest compressions and cardiac defibrillation. NO to intubation and artificial ventilation. DVT prophy: Lovenox 40 daily. Diet: Heart healthy, DM2. PT/OT: Deferred. Disbo: Admitted to med surg. Case management following, particular for outpatient antibiotic use. (2) Mastitis in female: (3) Anemia: (4) Hyperlipidemia: (5) DM (diabetes mellitus), type 2: (6) Diabetic neuropathy: (7) Asthma: (8) GERD (gastroesophageal reflux disease): (9) Morbid obesity: (10) Overactive bladder: (11) Varicose veins of left lower extremity: (12) Depression: Admission and Anticipated Discharge Date Admission Date: October 08, 2019 Supervising Physician Co-Signing Physician Notes I personally examined the patient and verified all rodriguez points of history and exam, discussed case, and agree with decision making with Dr. Hernandez with the following additions/exceptions: Pt not feeling well, some nausea, and a lot of pain in right breast. It is draining purulent drainage but erythema has spread outside previously demarcated line on lateral breast. No fevers and leukocytosis resolved BCxs NGTD Wound cx with MRSA resistant to doxycycline Vitals reviewed Morbidly obese Right breast with medial breast with significant +TTP, induration, fluctuent portion open and draining purulent fluid, with erythema spread across entire breast to the lateral side to the axilla, no nipple discharge RRR no mgr CTAB no wcr but diminished BS throughout due to body habitus Ext: 1+ chronic woody edema LEs bilat 54 yo female here with breast abscess and cellulitis on right, with MRSA =worsening--> consult Gen Surgery to see about debridement -CT scan nondiagnostic due to large body habitus and breast outside viewing window -will make NPO after midnight just in case of need for surgery on Thursday -continue pain control, IV Daptomycin Has US-guided IV in place for oil heaterman abx Follow BCxs -hold statin while on Dapto, CPK normal Subjective Found patient resting comfortably earlier this morning. Says that overall she is doing well but her breast is still very tender. She is also concerned that the erythema seems to be widening beyond previous drawn borders. Says there is some discharge from where her I&Ded abscess is. Denies any fevers but does have some chills. Otherwise she denies any other acute concerns. - As background, patient says she is on track to see Dr. Topete (allergy) at the end of September to help with her antibiotic allergies. - Also says that she is on track to get a varicose vein procedure on her left leg. She says on occasion she will neck 1 of the veins causing some bleeding. This is why she has a dressing on her leg at present. Review of Systems Review of Systems: Per HPI as above. Physical Exam Physical Exam: General Appearance: Awake, alert & oriented, comfortable in general, NAD. Right breast (standby = patients bedside nurse): There is a significant area of erythema, tenderness, and warmth over the most distal aspects of the breast bilateral to the areola. There is a dressed area of I&D on the left side. CV: +S1S2 RRR, no murmur. Pulm: Clear to auscultation throughout. Abdomen: +BS, soft, non-tender, non-distended. Extremities: No pedal edema or calf tenderness. Moving all extremities naturally and easily. There is a c/d/I dressing to the distal left lower extremity just above the ankle. Neuro: No gross neuro deficits. Results & Data ([facility]) Vital Signs (Past 12 Hours) Vital Signs Temp Pulse Resp BP Pulse Ox 10/10/19 15:39 37 C 81 18 119/72 96 10/10/19 07:16 36.8 C 81 18 107/70 93 Laboratory Results Laboratory Results WBC 7.34 K/uL (4.8-10.8) 10/10/19 06:41 RBC 4.17 M/uL (4.2-5.4) L 10/10/19 06:41 Hgb 12.2 g/dL (12.0-16.0) 10/10/19 06:41 Hct 37.3 % (37-47) 10/10/19 06:41 MCV 89.4 fL (80-100) 10/10/19 06:41 MCH 29.3 pg (25-34) 10/10/19 06:41 MCHC 32.7 g/dL (32-36) 10/10/19 06:41 RDW Std Deviation 45.9 fL (36.4-46.3) 10/10/19 06:41 RDW Coeff of Lan 14.0 % (11.5-14.5) 10/10/19 06:41 Plt Count 185 K/uL (130-400) 10/10/19 06:41 MPV 10.6 fL (7.4-10.4) H 10/10/19 06:41 Immature Gran % (Auto) 0.1 % 10/10/19 06:41 Neut % (Auto) 68.5 % 10/10/19 06:41 Lymph % (Auto) 20.0 % 10/10/19 06:41 [place] % (Auto) 9.5 % 10/10/19 06:41 Eos % (Auto) 1.8 % 10/10/19 06:41 Baso % (Auto) 0.1 % 10/10/19 06:41 Immature Gran # (Auto) 0.01 K/uL (0.00-0.02) 10/10/19 06:41 Neut # (Auto) 5.02 K/uL (1.4-6.5) 10/10/19 06:41 Lymph # (Auto) 1.47 K/uL (1.2-3.4) 10/10/19 06:41 [place] # (Auto) 0.70 K/uL (0.11-0.59) H 10/10/19 06:41 Eos # (Auto) 0.13 K/uL (0-0.5) 10/10/19 06:41 Baso # (Auto) 0.01 K/uL (0-0.2) 10/10/19 06:41 Sodium 140 mmol/L (136-145) 10/10/19 06:41 Potassium 3.8 mmol/L (3.5-5.1) 10/10/19 06:41 Chloride 108 mmol/L (98-107) H 10/10/19 06:41 Carbon Dioxide 27 mmol/L (21-32) 10/10/19 06:41 Anion Gap 5.0 (3-11) 10/10/19 06:41 BUN 10 mg/dl (7-18) 10/10/19 06:41 Creatinine 0.77 mg/dl (0.6-1.2) 10/10/19 06:41 Est Cr Clr Drug Dosing 136.1 ml/min 10/10/19 06:41 Est GFR ( Amer) 102.9 10/10/19 06:41 Est GFR (Non-Af Amer) 88.8 10/10/19 06:41 BUN/Creatinine Ratio 13.5 (10-20) 10/10/19 06:41 Glucose 163 mg/dl (70-99) H 10/10/19 06:41 POC Glucose 139 mg/dl (70-99) H 10/10/19 16:37 Estimat Average Glucose 160 mg/dl 10/09/19 07:34 Hemoglobin A1c 7.2 % (4.5-5.6) H 10/09/19 07:34 Lactate 1.1 mmol/L (0.4-2.0) 10/08/19 16:13 Calcium 8.2 mg/dl (8.5-10.1) L 10/10/19 06:41 Total Creatine Kinase 66 U/L (26-192) 10/10/19 06:41 Medications Administered Current Inpatient Medications Acetaminophen (Tylenol) 650 mg PO Q4H PRN PRN Reason: pain/fever Stop: 11/07/19 20:20 Last Admin: 10/10/19 06:38 Dose: 650 mg Documented by: Al Hydrox/Mg Hydrox/Simethicone (Maalox) 30 ml PO Q6H PRN PRN Reason: Dyspepsia Stop: 11/07/19 20:20 Albuterol (Ventolin 0.083% 2.5mg/3ml) 2.5 mg INH Q4R PRN PRN Reason: shortness of breath or wheezing Stop: 11/07/19 20:20 Aspirin (Ecotrin Ectab) 81 mg PO DAILY CHRISTINE Stop: 11/08/19 08:59 Last Admin: 10/10/19 08:25 Dose: 81 mg Documented by: Atorvastatin Calcium (Lipitor) 20 mg PO HS CHRISTINE Stop: 11/07/19 20:59 Last Admin: 10/09/19 21:03 Dose: 20 mg Documented by: Bupropion HCl (Wellbutrin-Xl) 300 mg PO QAM CHRISTINE Stop: 11/08/19 08:59 Last Admin: 10/10/19 08:25 Dose: 300 mg Documented by: Dextrose (Dextrose 50%) 25 - 50 ml IV UD PRN; Protocol PRN Reason: Hypoglycemia Protocol Stop: 11/07/19 20:20 Enoxaparin Sodium (Lovenox) 40 mg SQ QAM CHRISTINE Stop: 11/08/19 08:59 Last Admin: 10/10/19 08:26 Dose: 40 mg Documented by: Epinephrine HCl (Epinephrine) 0.3 mg IM Q15M PRN PRN Reason: anaphylaxis Stop: 11/07/19 20:20 Ferrous Sulfate (Feosol) 325 mg PO DAILY [facility] Stop: 11/08/19 08:59 Last Admin: 10/10/19 08:25 Dose: 325 mg Documented by: Gabapentin (Neurontin) 200 mg PO BID [facility] Stop: 11/07/19 20:59 Last Admin: 10/10/19 09:33 Dose: 200 mg Documented by: Glucagon (Glucagen) 1 mg SQ UD PRN; Protocol PRN Reason: Hypoglycemia Protocol Stop: 11/07/19 20:20 Glucose (Dex4 Glucose) 4 - 8 tabs PO UD PRN; Protocol PRN Reason: Hypoglycemia Protocol Stop: 11/07/19 20:20 Glucose (Glucose 40%) 15 - 30 gm PO UD PRN; Protocol PRN Reason: Hypoglycemia Protocol Stop: 11/07/19 20:20 Daptomycin 400 mg/ Syringe 8 mls @ 4 mls/min IV DAILY@1600 CHRISTINE; Protocol Stop: 10/15/19 15:59 Last Admin: 10/10/19 16:09 Dose: 4 mls/min Documented by: Insulin Aspart (Novolog Flexpen) 0 units SC ACHS [facility] Stop: 11/07/19 20:59 Last Admin: 10/10/19 12:56 Dose: 12 units Documented by: Insulin Glargine (Lantus Solostar Pen) 29 units SC BID [facility] Stop: 11/07/19 20:59 Last Admin: 10/10/19 08:26 Dose: 29 units Documented by: Ketorolac Tromethamine (Toradol) 30 mg IV Q6H PRN PRN Reason: Pain Stop: 10/13/19 20:20 Miscellaneous (Carbohydrates For Hypoglycemia) 15 - 30 gm PO UD PRN PRN Reason: Hypoglycemia Protocol Stop: 11/07/19 20:20 Miscellaneous Information (Consult) 1 ea N/A UD PRN PRN Reason: Consult Stop: 11/07/19 20:20 Morphine Sulfate (Morphine Sulfate) 2 mg IV Q4H PRN PRN Reason: Severe Pain Stop: 05/30/20 20:20 Ondansetron HCl (Zofran) 4 mg IV Q6H PRN PRN Reason: Nausea Stop: 11/07/19 20:20 Oxybutynin Chloride (Ditropan Xl) 10 mg PO DAILY CHRISTINE Stop: 11/08/19 08:59 Last Admin: 10/10/19 08:25 Dose: 10 mg Documented by: Pantoprazole Sodium (Protonix) 40 mg PO DAILY CHRISTINE Stop: 11/08/19 08:59 Last Admin: 10/10/19 08:25 Dose: 40 mg Documented by: Resident Activity Tracking Resident Involvement: Resident Care Provided Care Provided: Adult [facility] Medicine (1) Depression Active/Remission status: remission status unspecified Depression Type: major depressive disorder Major depression recurrence: unspecified whether recurrent Qualified Code(s): F32.9 - Major depressive disorder, single episode, unspecified (2) Hyperlipidemia Hyperlipidemia type: unspecified Qualified Code(s): E78.5 - Hyperlipidemia, unspecified (3) Asthma Asthma complication type: uncomplicated Asthma persistence: intermittent Asthma severity: mild Qualified Code(s): J45.20 - Mild intermittent asthma, uncomplicated
[2019-10-10] MEDS ORDERED: OPTIRAY 320 125ml IV PRN (18:51)
--- NOTE | 2019-10-10 19:12 | CT Scan Report ---
CT SCAN OF THE CHEST WITH IV CONTRAST CLINICAL HISTORY: Right breast pain. Mastitis. COMPARISON STUDY: Chest x-ray dated 09/09/2018. TECHNIQUE: Following the IV administration of 118 cc of Optiray 320, CT scan of the thorax was perfor med from the thoracic inlet to the upper abdomen. Images are reviewed in the axial, sagittal, and cor onal planes. IV contrast was administered without complication. A dose lowering technique was utiliz ed adhering to the principles of ALARA. The examination is degraded by large body habitus, and by str eak artifact from the body wall abutting the CT gantry. There is also motion artifact. CT DOSE: 988.02 mGy.cm FINDINGS: Thyroid: Imaged portions of the thyroid gland are normal in size and attenuation. Thoracic aorta: The thoracic aorta is normal in caliber and demonstrates standard 3-vessel arch anato my. No dissection is seen. Pulmonary vasculature: The pulmonary trunk is normal in caliber. There are no filling defects identif ied in the central pulmonary vessels to indicate pulmonary embolus. Note that this examination was no t protocoled for evaluation of the pulmonary arteries. Heart: The heart is normal in size and without pericardial effusion. Lungs and pleural spaces: Evaluation of the lung parenchyma is significantly degraded by motion artif act. There is no airspace consolidation or pleural effusion. The trachea and central airways are almaz r. Mediastinum: There is no mediastinal lymphadenopathy. Emmy: Clear. Axillae: There is right axillary lymphadenopathy. The largest node seen on image #94 and measures 3.0 x 2.5 cm. There are shotty left axillary nodes which are not pathologically enlarged. Upper abdomen: The liver appears enlarged and steatotic. The spleen is enlarged measuring 14.8 cm in length. Skeletal structures: No lytic or blastic bony lesions are seen. Soft tissues: The majority of the breasts are not included in the scan due to large body habitus. The right breast is partially visualized and shows evidence of dermal thickening with minimal underlying induration. IMPRESSION: 1. Streak and motion compromised examination. 2. Due to large body habitus the breasts are only partially visualized and are largely outside the fi eld-of-view. The breasts are not well evaluated by CT. 3. Partially visualized portions of the right breast show dermal thickening with minimal underlying i nduration. This could be seen in the setting of mastitis as clinically suspected. If further diagnost ic evaluation of the breasts is desired (including to assess for abscess) ultrasound would be appropr iate. 4. There are enlarged right axillary lymph nodes, likely on a reactive basis given the reported clini michelle history. Follow-up as clinically warranted. 5. The lungs are appear clear noting significant motion artifact. 6. Hepatomegaly and hepatic steatosis. 7. Splenomegaly. ACT 112: Negative or not required by law. Electronically signed by: Sherif Lazar M.D. 10/10/2019 7:10 PM
--- NOTE | 2019-10-10 23:47 | Billing Data ---
Date of Service October 10, 2019 Coding Level of Care Code 87564 Subseq Hosp Care Lvl 3
[2019-10-11] MEDS: INSULIN ASPART 100 UNITS/ML 3 ML PEN SC SCH ×5 (08:26→20:20)
[2019-10-11] MEDS: INSULIN GLARGINE SOLOSTAR 100 UNITS/ML 3 ML PEN SC SCH ×3 (08:31→20:22)
--- NOTE | 2019-10-11 08:49 | Surgery Progress Note ---
Date of Service October 11, 2019 Assessment & Plan (1) Cellulitis of right breast: will order U/S to check for fluid collection, none seen on CT but limited by habitus consider changing to vanco ? seen with Dr. Cabezas as above. some areas on the breast show slight improvement but laterally the erythema has progressed some. CT negative for abcess but limited by body habitus. d/w primary service. will obtain US today to r/o abcess. clinically impossible to palapate abcess vs induration. Subjective feels about the same Physical Exam Chest (Breasts): Additional Comments: erythema right breast extending few additional cm laterally Results & Data Vital Signs (Past 12 Hours) Vital Signs Temp Pulse Resp BP Pulse Ox 10/11/19 07:25 36.9 C 82 18 122/78 95 10/10/19 23:38 37 C 89 20 111/69 95 PG Care Time/CCT Total # of Minutes Spent Total Time Spent with Patient: Total time spent is greater than 50% in coordi nation of care (as documented) at patient's floor/unit and/or counseling patient: Coding Level of Care Code 07639 Subseq Hosp Care Lvl 2 Diagnoses Cellulitis of right breast N61.0
[2019-10-11 09:06] LABS: Hematocrit (blood only) 36.7 % (37-47); Hemoglobin 12.1 g/dL (12.0-16.0); Mean Corpuscular Hemoglobin 29.5 pg (25-34); Mean Corpuscular Volume 89.5 fL (80-100); Mean Platelet Volume 10.1 fL (7.4-10.4); Platelet Count 208 K/uL (130-400); RDW Coefficient of Variation 14.1 % (11.5-14.5); RDW Standard Deviation 46.4 fL (36.4-46.3); White Blood Count 6.75 K/uL (4.8-10.8)
[2019-10-11] MEDS: GABAPENTIN 100 MG CAP PO SCH ×2 (09:54→20:20)
[2019-10-11] MEDS: ASPIRIN 81 MG ECTAB PO SCH (09:56)
[2019-10-11] MEDS: FERROUS SULFATE 325 MG TAB PO SCH (09:56)
[2019-10-11] MEDS: OXYBUTYNIN CHLORIDE XL 5 MG TABCR PO SCH (09:56)
[2019-10-11] MEDS: BuPROPion XL 300 MG TABCR PO SCH (09:56)
[2019-10-11] MEDS: PANTOprazole 40 MG TAB PO SCH (09:56)
--- NOTE | 2019-10-11 10:11 | Ultrasound Report ---
US breast RT complete CLINICAL HISTORY: mastitis, eval abscess size COMPARISON STUDY: CT of the chest October 10, 2019. TECHNIQUE: Sonography of the right breast was performed. FINDINGS: At site of breast wound within the right breast at the 3 to 4:00 position, note is made of a subcutaneous hypoechoic focus which contains echogenic foci which likely reflect gas. This measures 3.3 x 1.3 x 3.3 cm. This does not have a well-defined wall. No additional fluid collections are note d. IMPRESSION: 3.3 x 1.3 x 3.3 cm medial right breast subcutaneous gas containing hypoechoic focus with out well-defined wall. This may reflect a developing abscess or phlegmon. ACT 112: Negative or not required by law. Electronically signed by: Daljit Webb M.D. 10/11/2019 10:10 AM
[2019-10-11] MEDS: ENOXAPARIN INJ 40 MG/0.4 ML SYR SQ SCH (11:30)
--- NOTE | 2019-10-11 13:48 | Infectious Disease Progress Nt ---
Date of Service October 11, 2019 Assessment & Plan (1) Cellulitis of right breast: will continue dapto but with worsening cellulitis and breast abscess would benefit from I&D, surgery following. would avoid change to vanco due to morbid obesity and difficulty in achieving theraputic levels. would not change to zyvox due to pt being on wellbutrin. isolate is clinda resistant, likely no benefit with addition of this. (2) Abscess of right breast: Admission and Anticipated Discharge Date Admission Date: October 08, 2019 Subjective pt afebrile overnight, wbc 6 s/p ct chest and breast ultrasound, [id number] collection noted, surgery following. 10/07 blood cultures negative, wound culture growing MRSA, remains on dapto. tolerating well. Results & Data ([facility]) Vital Signs (Past 12 Hours) Vital Signs Temp Pulse Resp BP Pulse Ox 10/11/19 07:25 36.9 C 82 18 122/78 95 Laboratory Results Microbiology 10/08/19 16:19 Blood Aerobic Blood Culture - Preliminary No growth in Aerobic bottle after 48 hours. 10/08/19 16:19 Blood Anaerobic Blood Culture - Preliminary No growth in Anaerobic bottle after 48 hours. 10/08/19 16:13 Blood Aerobic Blood Culture - Preliminary No growth in Aerobic bottle after 48 hours. 10/08/19 16:13 Blood Anaerobic Blood Culture - Preliminary No growth in Anaerobic bottle after 48 hours. 10/08/19 16:38 Breast,Right Gram Stain - Final 10/08/19 16:38 Breast,Right Deep Wound Culture - Final Staph aureus MRSA PG Care Time/CCT Total # of Minutes Spent Total Time Spent with Patient: Total time spent is greater than 50% in coordination of care (as documented) at patient's floor/unit and/or counseling patient: Coding Level of Care Code 59578 Subseq Hosp Care Lvl 1 Diagnoses Cellulitis of right breast N61.0 Abscess of right breast N61.1
[2019-10-11] MEDS: DAPTOmycin 400 MG in SYRINGE 0 ML IV SCH (17:56)
--- NOTE | 2019-10-11 18:01 | Family Medicine Progress Note ---
Date of Service October 11, 2019 Assessment & Plan (1) Abscess of right breast: 54-year-old female was admitted on 08 Oct 2019 for concerns for a right breast infection. 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 Has multiple antibiotic allergies. 16May wound cx growing MDR S. aureus. Admit BCx NGTD. Stopped outpatient doxy, started daptomycin. Endurance-type catheter placed. 18May CT chest unfortunately did not visualize involved breast tissue. Since admit, worsening induration and ongoing symptoms (pain, tenderness). 19May breast u/s noted a local abscess. Gas likely due to recent I&D. - Daily packing, warm compresses, and chlorhexidine wipes. - 19May ID note recommended continuing daptomycin and avoid vanc or zyvox. - See general surgery recs. Considering u/s guided vs surgical (OR) drainage. - Wound management following as well. - Pain management with Tylenol, Toradol, morphine (all prn). Minimal use thus far. - Patient says she is on track to see Dr. Topete (allergy/immunology) at the end of September for possible allergic desensitization. Anemia: Admit Hb 13.3, stable around 12. MCV normal range. No evidence of acute bleeding. Consider recheck as outpatient as well as confirm she is up-to-date on routine cancer screenings. On daily home iron supplementation. CT chest incidental findings: See full report. Noted enlarged right axillary lymph nodes (likely reactive), hepatomegaly, hepatic steatosis, splenomegaly. Ongoing medical issues: - HLD: Held home atorvastatin while on daptomycin. - DM2, diabetic neuropathy: Reported recent blood sugar elevations, likely due to her infection. 17May HbA1c 7.2. On home ASA 81 and gabapentin. Held home dulaglutide. Held home glargine 40 units q HS and lispro 20 units BID. --- On lantus 29 units BID and novolog sliding scale here. Glucose ranges have been improving. - Asthma: Stable. On albuterol prn. - GERD: On home pantoprazole. - Morbid obesity: BMI 64. - Overactive bladder: On home oxybutynin. - Varicose veins: Has bandage to LLE. Says is on track for related procedure in October. - Depression: On home bupropion. Code Status: Conditional code --- YES to chest compressions and cardiac defibrillation. NO to intubation and artificial ventilation. DVT prophy: Lovenox 40 daily. Diet: Heart healthy, DM2 --- then NPO (except meds) again at midnight. PT/OT: Deferred. Disbo: Admitted to med surg. Case management following, says has insurance coverage for outpatient antibiotics. (2) Mastitis in female: (3) Anemia: (4) Hyperlipidemia: (5) DM (diabetes mellitus), type 2: (6) Diabetic neuropathy: (7) Asthma: (8) GERD (gastroesophageal reflux disease): (9) Morbid obesity: (10) Overactive bladder: (11) Varicose veins of left lower extremity: (12) Depression: Admission and Anticipated Discharge Date Admission Date: October 08, 2019 Supervising Physician Co-Signing Physician Notes I personally examined the patient and verified all rodriguez points of history and exam, discussed case, and agree with decision making with Dr. Hernandez with the following additions/exceptions: Reports ongoing tenderness in the right breast and is concerned about the spreading erythema although it is not much further spread and is likely secondary to gravity on the lateral side of the breast. Continues to drain purulent fluid from the opening from previous incision. I discussed the case with general surgery who does not feel she should go to the OR today but will continue to follow. Continues to remain afebrile BCxs NGTD Wound cx with MRSA resistant to doxycycline Vitals reviewed Morbidly obese Right breast with medial breast with significant +TTP, induration although slightly less than yesterday, fluctuent portion open and draining purulent fluid, with erythema spread across entire breast to the lateral side to the axilla slightly outside of previous line of demarcation although could be from gravity as she is lying flat all the time, no nipple discharge RRR no mgr CTAB no wcr but diminished BS throughout due to body habitus Ext: 1+ chronic woody edema LEs bilat 54 yo female here with breast abscess and cellulitis on right, with MRSA Slightly improved today Appreciate consult Gen Surgery to see about debridement-none for now although there is a developing abscess on breast ultrasound -CT scan nondiagnostic due to large body habitus and breast outside viewing window -will make NPO after midnight just in case of need for surgery on Thursday but she can eat today -continue pain control, IV Daptomycin, appreciate ID consultation 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 With exception of her right breast, she says that she feels well. She continues to have local tenderness and increased redness of her breast, perhaps though it is a little bit improved discomfort. She has multiple questions about potential surgical options. Denies any overnight feeling of fever or other acute concerns. Review of Systems Review of Systems: Per HPI as above. Physical Exam Physical Exam: General Appearance: Awake, alert & oriented, comfortable in general, NAD. Right breast (standby = patients bedside nurse): There is a significant area of erythema, tenderness, and warmth over the most distal aspects of the breast bilateral to the areola. The erythema continues to extend beyond yesterday's skin demarcation line. There is a dressed area of I&D on the left side, and when removed notes some mild purulent drainage. CV: +S1S2 RRR, no murmur. Pulm: Clear to auscultation throughout. Abdomen: +BS, soft, non-tender, non-distended. Extremities: No pedal edema or calf tenderness. Moving all extremities naturally and easily. There is a c/d/I dressing to the distal left lower extremity just above the ankle. Neuro: No gross neuro deficits. Results & Data ([facility]) Vital Signs (Past 12 Hours) Vital Signs Temp Pulse Resp BP Pulse Ox 10/11/19 15:18 36.8 C 81 18 106/63 96 10/11/19 07:25 36.9 C 82 18 122/78 95 Laboratory Results 10/11/19 10/11/19 10/11/19 Range/Units 16:37 12:23 08:48 WBC 6.75 (4.8-10.8) K/uL RBC 4.10 L (4.2-5.4) M/uL Hgb 12.1 (12.0-16.0) g/dL Hct 36.7 L (37-47) % MCV 89.5 (80-100) fL MCH 29.5 (25-34) pg MCHC 33.0 (32-36) g/dL RDW Std Deviation 46.4 H (36.4-46.3) fL RDW Coeff of Lan 14.1 (11.5-14.5) % Plt Count 208 (130-400) K/uL MPV 10.1 (7.4-10.4) fL POC Glucose 88 114 H (70-99) mg/dl 10/11/19 10/10/19 Range/Units 07:27 20:02 WBC (4.8-10.8) K/uL RBC (4.2-5.4) M/uL Hgb (12.0-16.0) g/dL Hct (37-47) % MCV (80-100) fL MCH (25-34) pg MCHC (32-36) g/dL RDW Std Deviation (36.4-46.3) fL RDW Coeff of Lan (11.5-14.5) % Plt Count (130-400) K/uL MPV (7.4-10.4) fL POC Glucose 137 H 105 H (70-99) mg/dl Medications Administered Acetaminophen (Tylenol) 650 mg PO Q4H PRN PRN Reason: pain/fever Stop: 11/07/19 20:20 Last Admin: 10/10/19 06:38 Dose: 650 mg Documented by: [id number] Admin: 10/09/19 23:57 Dose: 650 mg Documented by: [id number] Admin: 10/09/19 06:30 Dose: 650 mg Documented by: [id number] Aspirin (Ecotrin Ectab) 81 mg PO DAILY [facility] Stop: 11/08/19 08:59 Last Admin: 10/11/19 09:56 Dose: 81 mg Documented by: [id number] Admin: 10/10/19 08:25 Dose: 81 mg Documented by: [id number] Admin: 10/09/19 09:05 Dose: 81 mg Documented by: [id number] Atorvastatin Calcium (Lipitor) 20 mg PO HS [facility] Stop: 11/07/19 20:59 Last Admin: 10/09/19 21:03 Dose: 20 mg Documented by: [id number] Admin: 10/08/19 21:24 Dose: 20 mg Documented by: [id number] Bupropion HCl (Wellbutrin-Xl) 300 mg PO QAM [facility] Stop: 11/08/19 08:59 Last Admin: 10/11/19 09:56 Dose: 300 mg Documented by: [id number] Admin: 10/10/19 08:25 Dose: 300 mg Documented by: [id number] Admin: 10/09/19 09:04 Dose: 300 mg Documented by: [id number] Enoxaparin Sodium (Lovenox) 40 mg SQ QAM [facility] Stop: 11/08/19 08:59 Last Admin: 10/11/19 11:30 Dose: 40 mg Documented by: [id number] Admin: 10/10/19 08:26 Dose: 40 mg Documented by: [id number] Admin: 10/09/19 09:06 Dose: 40 mg Documented by: [id number] Ferrous Sulfate (Feosol) 325 mg PO DAILY [facility] Stop: 11/08/19 08:59 Last Admin: 10/11/19 09:56 Dose: 325 mg Documented by: [id number] Admin: 10/10/19 08:25 Dose: 325 mg Documented by: [id number] Admin: 10/09/19 09:05 Dose: 325 mg Documented by: [id number] Gabapentin (Neurontin) 200 mg PO BID [facility] Stop: 11/07/19 20:59 Last Admin: 10/11/19 09:54 Dose: 200 mg Documented by: [id number] Admin: 10/10/19 21:00 Dose: 200 mg Documented by: [id number] Admin: 10/10/19 09:33 Dose: 200 mg Documented by: [id number] Admin: 10/09/19 21:04 Dose: 200 mg Documented by: [id number] Admin: 10/09/19 09:05 Dose: 200 mg Documented by: [id number] Admin: 10/08/19 21:23 Dose: 200 mg Documented by: [id number] Daptomycin 400 mg/ Syringe 8 mls @ 4 mls/min IV DAILY@1600 [facility]; Protocol Stop: 10/15/19 15:59 Last Admin: 10/11/19 17:56 Dose: 4 mls/min Documented by: [id number] Admin: 10/10/19 16:09 Dose: 4 mls/min Documented by: [id number] Admin: 10/09/19 15:34 Dose: 4 mls/min Documented by: [id number] Insulin Aspart (Novolog Flexpen) 0 units SC ACHS [facility] Stop: 11/07/19 20:59 Last Admin: 10/11/19 17:56 Dose: 13 units Documented by: [id number] Cosigned by: [id number] Admin: 10/11/19 12:36 Dose: 12 units Documented by: [id number] Cosigned by: [id number] Admin: 10/11/19 11:29 Dose: Not Given Documented by: [id number] Cosigned by: [id number] Admin: 10/10/19 21:02 Dose: 6 units Documented by: [id number] Cosigned by: [id number] Admin: 10/10/19 17:16 Dose: 17 units Documented by: [id number] Cosigned by: [id number] Admin: 10/10/19 12:56 Dose: 12 units Documented by: [id number] Cosigned by: [id number] Admin: 10/10/19 08:29 Dose: 9 units Documented by: [id number] Cosigned by: [id number] Admin: 10/09/19 21:05 Dose: Not Given Documented by: [id number] Cosigned by: [id number] Admin: 10/09/19 17:13 Dose: 11 units Documented by: [id number] Cosigned by: [id number] Admin: 10/09/19 12:11 Dose: 12 units Documented by: [id number] Cosigned by: [id number] Admin: 10/09/19 09:00 Dose: 300 units Documented by: [id number] Cosigned by: [id number] Admin: 10/08/19 21:27 Dose: 13 units Documented by: [id number] Cosigned by: [id number] Insulin Glargine (Lantus Solostar Pen) 29 units SC BID [facility] Stop: 11/07/19 20:59 Last Admin: 10/11/19 11:29 Dose: 29 units Documented by: [id number] Cosigned by: [id number] Admin: 10/10/19 21:01 Dose: 29 units Documented by: [id number] Cosigned by: [id number] Admin: 10/10/19 08:26 Dose: 29 units Documented by: [id number] Cosigned by: [id number] Admin: 10/09/19 21:02 Dose: 29 units Documented by: [id number] Cosigned by: [id number] Admin: 10/09/19 09:02 Dose: 29 units Documented by: [id number] Cosigned by: [id number] Admin: 10/08/19 21:27 Dose: 29 units Documented by: [id number] Cosigned by: [id number] Ioversol (Optiray 320 125ml) 118 ml IV ONCE PRN PRN Reason: Interaction Checking Stop: 10/14/19 18:50 Last Admin: 10/10/19 18:51 Dose: 118 ml Documented by: [id number] Oxybutynin Chloride (Ditropan Xl) 10 mg PO DAILY [facility] Stop: 11/08/19 08:59 Last Admin: 10/11/19 09:56 Dose: 10 mg Documented by: [id number] Admin: 10/10/19 08:25 Dose: 10 mg Documented by: [id number] Admin: 10/09/19 09:03 Dose: 10 mg Documented by: [id number] Pantoprazole Sodium (Protonix) 40 mg PO DAILY [facility] Stop: 11/08/19 08:59 Last Admin: 10/11/19 09:56 Dose: 40 mg Documented by: [id number] Admin: 10/10/19 08:25 Dose: 40 mg Documented by: [id number] Admin: 10/09/19 09:04 Dose: 40 mg Documented by: [id number] Discontinued Medications Acetaminophen (Tylenol) 1,000 mg PO NOW STA Stop: 10/08/19 15:31 Last Admin: 10/08/19 16:08 Dose: 1,000 mg Documented by: [id number] Sodium Chloride (Nss 1000ml) 1,000 mls @ 999 mls/hr IV .Q1H1M [facility] Stop: 10/08/19 16:31 Last Infusion: 10/08/19 20:31 Dose: 0 mls/hr Documented by: [id number] Admin: 10/08/19 16:13 Dose: 999 mls/hr Documented by: [id number] Daptomycin 400 mg/ Syringe 8 mls @ 4 mls/min IV NOW ONE; Protocol Stop: 10/08/19 15:36 Last Admin: 10/08/19 16:13 Dose: 4 mls/min Documented by: [id number] Lidocaine/Epinephrine (Buffered Xylocaine/Epinephrine 1%) 20 ml INFIL NOW ONE Stop: 10/08/19 15:34 Last Admin: 10/08/19 16:08 Dose: 20 ml Documented by: [id number] Morphine Sulfate (Morphine Sulfate) 6 mg IV NOW STA Stop: 10/08/19 15:31 Last Admin: 10/08/19 16:12 Dose: 6 mg Documented by: [id number] Morphine Sulfate (Morphine Sulfate) Confirm Administered Dose 4 mg .ROUTE .STK- MED ONE Stop: 10/08/19 15:50 Last Admin: 10/08/19 16:09 Dose: Not Given Documented by: [id number] Morphine Sulfate (Morphine Sulfate) Confirm Administered Dose 2 mg .ROUTE .STK- MED ONE Stop: 10/08/19 15:50 Last Admin: 10/08/19 16:09 Dose: Not Given Documented by: [id number] Ondansetron HCl (Zofran) 4 mg IV NOW STA Stop: 10/08/19 15:31 Last Admin: 10/08/19 16:12 Dose: 4 mg Documented by: [id number] Resident Activity Tracking Resident Involvement: Resident Care Provided Care Provided: Adult [facility] Medicine (1) Depression Active/Remission status: remission status unspecified Depression Type: major depressive disorder Major depression recurrence: unspecified whether recurrent Qualified Code(s): F32.9 - Major depressive disorder, single episode, unspecified (2) Hyperlipidemia Hyperlipidemia type: unspecified Qualified Code(s): E78.5 - Hyperlipidemia, unspecified (3) Asthma Asthma complication type: uncomplicated Asthma persistence: intermittent Asthma severity: mild Qualified Code(s): J45.20 - Mild intermittent asthma, uncomplicated
[2019-10-12 07:17] VITALS: PULSE 79; TEMP 98.4; O2SAT 96
[2019-10-12] MEDS: ENOXAPARIN INJ 40 MG/0.4 ML SYR SQ SCH (07:57)
[2019-10-12] MEDS: GABAPENTIN 100 MG CAP PO SCH (07:57)
[2019-10-12] MEDS: INSULIN ASPART 100 UNITS/ML 3 ML PEN SC SCH ×2 (07:57→12:33)
[2019-10-12] MEDS: FERROUS SULFATE 325 MG TAB PO SCH (07:58)
[2019-10-12] MEDS: PANTOprazole 40 MG TAB PO SCH (07:58)
[2019-10-12] MEDS: OXYBUTYNIN CHLORIDE XL 5 MG TABCR PO SCH (07:58)
[2019-10-12] MEDS: ASPIRIN 81 MG ECTAB PO SCH (07:58)
[2019-10-12] MEDS: INSULIN GLARGINE SOLOSTAR 100 UNITS/ML 3 ML PEN SC SCH (07:58)
[2019-10-12] MEDS: BuPROPion XL 300 MG TABCR PO SCH (07:59)
[2019-10-12 08:00] LABS: Hematocrit (blood only) 38.7 % (37-47); Hemoglobin 13.1 g/dL (12.0-16.0); Mean Corpuscular Hemoglobin 30.5 pg (25-34); Mean Corpuscular Hgb Conc 33.9 g/dL (32-36); Mean Platelet Volume 10.1 fL (7.4-10.4); Platelet Count 229 K/uL (130-400); RDW Coefficient of Variation 14.3 % (11.5-14.5); RDW Standard Deviation 47.2 fL (36.4-46.3); White Blood Count 7.62 K/uL (4.8-10.8)
[2019-10-12] MEDS ORDERED: MICONAZOLE NITRATE POWDER 43 GM EXT PRN (08:09)
--- NOTE | 2019-10-12 08:58 | Billing Data ---
Date of Service October 11, 2019 Coding Level of Care Code 34903 Subseq Hosp Care Lvl 3
--- NOTE | 2019-10-12 09:09 | Surgery Progress Note ---
Date of Service October 12, 2019 Assessment & Plan (1) Cellulitis of right breast: improving on IV abx no procedures planned at this point seen with Dr. Cabezas as above. feeling much better. redness much improved no indication for surgery. will continue to follow along. ok to restart diet. Subjective less breast discomfort Physical Exam Chest (Breasts): Additional Comments: erythema less intense and receding, some drainage on gauze from open wound Results & Data Vital Signs (Past 12 Hours) Vital Signs Temp Pulse Resp BP Pulse Ox 10/12/19 07:03 36.9 C 79 18 121/79 96 10/11/19 23:30 36.8 C 84 15 131/74 92 PG Care Time/CCT Total # of Minutes Spent Total Time Spent with Patient: Total time spent is greater than 50% in coordination of care (as documented) at patient's floor/unit and/or counseling patient: Coding Level of Care Code 60685 Subseq Hosp Care Lvl 2 Diagnoses Cellulitis of right breast N61.0
--- NOTE | 2019-10-12 11:47 | Discharge Summary ---
Date of Service October 12, 2019 Admission HPI Per Admitting Provider 54 yo F with PMH dyslipidemia, diabetes, depression, asthma, GERD and history of MRSA (last in Feb 2019) presents with concerns of R breast infection. Hx MRSA + wounds in the several different spots in the past. 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 Pt was seen by PCP yesterday for similar. Complaints of pain, swelling and redness to R medial breast area that began 3 days ago. Notes discharge of purulent material and R breast is hot to touch and painful. Pain level 7/10 at worst. Relieved somewhat with warm compresses, has not tried anything else in the way of medications. PCP obtained culture and pt was placed on doxycycline, which she has taken for past 24hrs. Since PCP visit, redness has spread beyond what doctor had marked with pen. Notes BSG have been running higher than normal past few days. Pt otherwise denies fevers, chills, trauma, breast feeding (has 2 children ages 1 and 5), nipple discharge, nipple inversion. Last mammogram was several years ago at [facility], has yet to f/u or reschedule. Pt with no other acute concerns or complaints. Pertinent Labs: WBC 13.2, Na 135, Glu 278, LA WNL 1.1 ER Course: IV Tylenol 1g, IV Daptomycin 400mg, IV Morphine 6mg, IV Zofran, NSS. I&D performed Admission Exam Per Admitting Provider Constitutional: + ill appearing and + morbidly obese Eyes: PERRL, conjunctivae normal, anicteric sclerae ENMT: external ear and nose normal, oropharynx normal Respiratory: normal respiratory effort, lungs clear to auscultation Cardiovascular: RRR, no murmur, no edema Skin: R breast findings consistent with cellulitic picture Large area of erythema. Area marked with pen R breast TTP, warm to touch Incision packed, bloody d/c present No nipple d/c. No inversion Psychiatric: A+Ox3, euthymic affect Lymphatic: + lymphadenopathy (R axillary lymph node enlarged, TTP) Principal Diagnosis Right breast mastitis, breast abscess Discharge Exam General Appearance: Awake, alert & oriented, comfortable in general, NAD. Right breast (standby = general surgery team): There is a significant area of erythema over the most distal aspects of the breast. The erythema appears to have improved over the past 24 hours. There is a defined abscess-like area on the medial aspect that is status post incision and drainage. There is a minimal amount of purulent drainage currently present. The entire area has improved tenderness and warmth. CV: +S1S2 RRR, no murmur. Pulm: Clear to auscultation throughout. Abdomen: +BS, soft, non-tender, non-distended. There is some mild-moderate erythema within the left lateral pannus that does not appear bacterially- infected (but may be anay). Extremities: No pedal edema or calf tenderness. Moving all extremities naturally and easily. There is a c/d/I dressing to the distal left lower extremity just above the ankle. Neuro: No gross neuro deficits. Discharge Data Allergies Allergy/AdvReac Type Severity Reaction Status Date / Time metformin Allergy Severe Hives Verified 10/07/19 13:50 adhesive tape Allergy Unknown PAPER TAPE Verified 10/08/19 20:35 - Unknown Bactrim Allergy Unknown Unknown Verified 06/09/18 13:46 bee venom protein (honey bee) Allergy Unknown Unknown Verified 09/29/19 12:55 cephalexin Allergy Unknown Unknown Verified 09/29/19 12:55 clindamycin Allergy Unknown Unknown Verified 09/29/19 12:55 diphenhydramine Allergy Unknown Unknown Verified 09/29/19 12:55 erythromycin base Allergy Unknown Unknown Verified 09/29/19 12:55 fluticasone Allergy Unknown Unknown Verified 09/29/19 12:55 milk Allergy Unknown Unknown Verified 09/29/19 12:55 mometasone furoate Allergy Unknown Unknown Verified 09/29/19 12:55 salmeterol Allergy Unknown Unknown Verified 09/29/19 12:55 strawberry Allergy Unknown Unknown Verified 09/29/19 12:55 sulfamethoxazole Allergy Unknown Unknown Verified 09/29/19 12:55 trimethoprim Allergy Unknown Unknown Verified 09/29/19 12:55 Penicillins Allergy Unknown Verified 10/07/19 14:26 Consultations Surgery progress note assessment and plan on October 12, 2019 (1) Cellulitis of right breast: improving on IV abx no procedures planned at this point seen with Dr. Cabezas as above. feeling much better. redness much improved no indication for surgery. will continue to follow along. Infectious disease progress note assessment and plan on October 11, 2019 (1) Cellulitis of right breast: will continue dapto but with worsening cellulitis and breast abscess would benefit from I&D, surgery following. would avoid change to vanco due to morbid obesity and difficulty in achieving theraputic levels. would not change to zyvox due to pt being on wellbutrin. isolate is clinda resistant, likely no benefit with addition of this. (2) Abscess of right breast: Ordered Studies Right breast ultrasound on October 11, 2019 IMPRESSION: 3.3 x 1.3 x 3.3 cm medial right breast subcutaneous gas containing hypoechoic focus without well-defined wall. This may reflect a developing abscess or phlegmon. CT chest with IV contrast on October 10, 2019 IMPRESSION: 1. Streak and motion compromised examination. 2. Due to large body habitus the breasts are only partially visualized and are largely outside the [id number]. The breasts are not well evaluated by CT. 3. Partially visualized portions of the right breast show dermal thickening with minimal underlying induration. This could be seen in the setting of mastitis as clinically suspected. If further diagnostic evaluation of the breasts is desired (including to assess for abscess) ultrasound would be appropriate. 4. There are enlarged right axillary lymph nodes, likely on a reactive basis given the reported clinical history. Follow-up as clinically warranted. 5. The lungs are appear clear noting significant motion artifact. 6. Hepatomegaly and hepatic steatosis. 7. Splenomegaly. Hospital Course (1) Abscess of right breast: 54-year-old female was admitted on 08 Oct 2019 for concerns for a right breast infection. Right breast abscess, mastitis: Has multiple antibiotic allergies. 16May wound cx growing MDR S. aureus. Admit BCx NGTD. Stopped outpatient doxy, 17May started daptomycin. Endurance-type catheter placed. 18May CT chest unfortunately did not visualize involved breast tissue. 19May breast u/s noted a local abscess. See full reports. Fortunately, her discomfort as well as erythema continue to improve. Surgery does not plan further intervention at this time. Infectious disease recommended ongoing daptomycin treatment. Will treat for a total of 14 days. Pain control mostly via Tylenol. - Discussed wound dressings with the patient. Recommended covering with a sterile gauze and changing daily. - Patient has multiple antibiotic allergies. She says she is on track to see Dr. Topete (allergy/immunology) at the end of September for possible allergic desensitization. Anemia: Admit Hb 13.3, stable around 12. MCV normal range. No evidence of acute bleeding. Consider recheck as outpatient as well as confirm she is up-to-date on routine cancer screenings. On daily home iron supplementation. CT chest incidental findings: See full report. Noted enlarged right axillary lymph nodes (likely reactive), hepatomegaly, hepatic steatosis, and splenomegaly. DM2, diabetic neuropathy: Reported recent blood sugar elevations, likely due to her infection. 17May HbA1c 7.2. On home ASA 81. Blood sugars well controlled on insulin sliding scale here. Patient was seen by the hematology nurse educator. Will provide some recommendations for improved insulin coverage on discharge. Recommended close follow-up with her PCP regarding her diabetes care. Left pannus redness: Possibly some mild Anay along the left near midaxillary line of the chest. Provided some Dexenex powder for her to go home with. Ongoing medical issues: - Diabetic neuropathy: Continue home gabapentin - HLD: Held home atorvastatin while on daptomycin. - Asthma: Stable. On albuterol prn. - GERD: On home pantoprazole. - Morbid obesity: BMI 64. - Overactive bladder: On home oxybutynin. - Varicose veins: Has bandage to LLE. Says is on track for related procedure in October. - Depression: On home bupropion. - PMH recurrent facial MRSA: Admitted Feb 2019 for same. Code Status: Conditional code --- YES to chest compressions and cardiac defibrillation. NO to intubation and artificial ventilation. (2) Mastitis in female: (3) Anemia: (4) Hyperlipidemia: (5) DM (diabetes mellitus), type 2: (6) Diabetic neuropathy: (7) Asthma: (8) GERD (gastroesophageal reflux disease): (9) Morbid obesity: (10) Overactive bladder: (11) Varicose veins of left lower extremity: (12) Depression: Total Time Total Time Spent Total Time Spent (In Minutes): > 30 min Discharge Plan Discharge Items Patient Disposition: Home - Home Health Services Reason For Visit: CELLULITIS Discharge Diagnosis: Right breast abscess, mastitis Condition on Discharge: Good Activity: Per Instructions section Non-emergency contact: Primary Care Provider Call non-emergency contact if: you have any medication questions Follow-up/Referrals: Margo Cyr CRNP [Primary Care Provider] - (Your primary care office will call you within a day or two to set up and appointment for 1 to 2 weeks from now. If you do not hear from the office in a few days, please call [phone] to set an appointment up. Thank you.) Mike Topete MD [Physician] - (Please, follow up at [facility]'s Allergy / Immunology Office with Dr. Topete. *The office is located in [address] of [facility], next to this hospital. A nurse from this office will call you with appointment details. If you have any questions, call the office at [phone].) Diet: Carb Consistent or DM2 Addtl Attending Provider Instructions: You were admitted to the hospital on October 08, 2019 due to concerns for right breast infection. While in the hospital we addressed the following issues: Right breast abscess, mastitis: Based on your exam and ultrasound, you have an infection in the middle part of your right breast. Fortunately, it seems to be responding to the antibiotic daptomycin. You were seen by both infectious disease and general surgery who agreed with this plan. At this time, you should not need to follow-up with general surgery. - We recommend that you continue taking the daptomycin once a day via the long- term IV that was placed here in the hospital. You should be on the medication for about 14 days total, so we wrote a prescription for 12 more days after discharge. The home infusion nursing team should help with this. -Please HOLD your atorvastatin while on the Daptomycin antibiotic and then you can restart it after the antibiotics are completed in 12 days. - Regarding local wound care for the breast abscess, please continue to keep the area clean and dry. You can shower (i.e. run water over the area) but please pat the area dry afterwards. Of course, please keep any towels you use for this area separate and wash them often. You can keep the area covered with a sterile gauze and paper tape otherwise during the day. This dressing can be changed daily after your shower. Diabetes: While here in the hospital you were seen by 1 of our diabetes educators. They recommend that you add an additional sliding scale insulin (Humalog) in addition to your current insulin dosing if your blood sugars are elevated. It is very important that you follow-up with your diabetes physician for close post-hospital diabetes care. Please make an appointment with them as soon as possible. Redness in the skin fold: On the left side of your there is some redness in that skin fold. Provided some Dexenex powder for that here in the hospital. Please take at home and apply it as needed to help dry the area. Follow-up with your primary care provider for further care. The diabetic educators recommended the following scale (per their discussion with you): High Blood Sugar 150 or less no extra insulin 151 - 175 + 1 unit 176 - 200 + 2 units 201 - 225 + 3 units 226 - 250 + 4 units 251 - 275 + 5 units 276 - 300 + 6 units 301 - 325 + 7 units 326 - 350 + 8 units Above 350 + 9 units and call provider Overall, please follow-up with your primary care provider, Margo Cyr, within the next 1 to 2 weeks for close post-hospital continuity of care. Her office should call you to help with an appointment. If you do not hear from them in the next couple of days, please call them directly. Of course, if you believe your infection is worsening, you have any fever or chills, any difficulty with very high blood sugars, or any other emergent concerns please return to the emergency department. Pending Studies at Discharge: No Stand-Alone Forms: My [facility], Smoking Cessation Medications and DC Order Prescriptions: New daptomycin 500 mg recon soln 400 mg IV DAILY 12 Days Qty: 12 RF: 0 Desenex 2 % Powder 1 applic EXT PRN PRN (Reason: redness) 14 Days Qty: 30 RF: 0 Continued aspirin [Aspirin Low Dose] 81 mg Tablet,Delayed Release (Dr/Ec) 81 mg PO DAILY Qty: 0 RF: 0 gabapentin 100 mg capsule 200 mg PO BID Qty: 0 RF: 0 ferrous sulfate 325 mg (65 mg iron) tablet 325 mg PO DAILY Qty: 90 RF: 3 albuterol sulfate 2.5 mg /3 mL (0.083 %) solution for nebulization 2.5 mg INH Q4H PRN (Reason: shortness of breath or wheezing) Qty: 75 RF: 5 clindamycin phosphate 1 % lotion 1 appln topical DAILY Qty: 60 RF: 1 atorvastatin 20 mg tablet 20 mg PO HS Qty: 90 RF: 3 pantoprazole 40 mg tablet,delayed release (DR/EC) 40 mg PO DAILY Qty: 90 RF: 3 epinephrine [EpiPen] 0.3 mg/0.3 mL auto-injector 0.3 mg IM Q15M PRN (Reason: anaphylaxis) Qty: 2 RF: 3 Trulicity 1.5 mg/0.5 mL pen injector 1.5 mg SQ WEEKLY Qty: 2 RF: 5 insulin lispro [Humalog KwikPen Insulin] 100 unit/mL insulin pen 20 unit subcut BID Qty: 15 RF: 1 insulin glargine 100 unit/mL solution 40 units SUBCUT HS Qty: 5 RF: 3 albuterol sulfate [ProAir HFA] 90 mcg/actuation HFA aerosol inhaler 2 puff INHALATION QID PRN (Reason: Shortness Of Breath) Qty: 18 RF: 3 oxybutynin chloride 10 mg tablet extended release 24hr 10 mg PO DAILY Qty: 90 RF: 0 bupropion HCl [Wellbutrin XL] 300 mg tablet extended release 24 hr 300 mg PO QAM RF: 0 hydrocodone-acetaminophen [[place]] 5-325 mg tablet 1 - 2 tab PO Q6H PRN (Reason: pain) Qty: 20 RF: 0 Discontinued doxycycline hyclate 100 mg capsule 100 mg PO BID 10 Days Qty: 20 RF: 0 Discharge Orders: Discharge Order (Routine); Ordered 10/12/19 Ordered By: Israel Hogan/Other Patient Handouts: Diabetes Obstetrician Complications, Diabetes Resources, Diabetes Healthy Meals, Diabetes Exercise Benefits Admission Data Admit Date/Time: 10/08/19 18:23 Attending Provider: Lorna Yen Admit Provider: Ashkan Khan Primary Care Provider: Margo Cyr Other Providers: Nadira Tolentino ; Renzo Smith Matthew D. Supervising Physician Co-Signing Physician Notes I personally examined the patient and verified all rodriguez points of history and exam, discussed case, and agree with decision making with Dr. Hernandez with the following additions/exceptions: Much improved today, less pain and less redness. Seen by Surgery and stable for dc to home Continues to remain afebrile BCxs NGTD Wound cx with MRSA resistant to doxycycline, clinda Vitals reviewed Morbidly obese Right breast with medial breast with less induration, fluctuent portion open and draining purulent fluid, with erythema much less across entire breast to the lateral breast, receded from line of demarkation from previous Ext: 1+ chronic woody edema LEs bilat 54 yo female here with breast abscess and cellulitis on right, with MRSA Much improved today Appreciate consult Gen Surgery to see about debridement-none for now although there is a developing abscess on breast ultrasound -CT scan nondiagnostic due to large body habitus and breast outside viewing window -significantly improved today, continues to drain on its owna nd no surgical i ndication for further I&D at this time -continue total 14 days IV Daptomycin, appreciate ID consultation Has US-guided IV in place for prison abx Follow BCxs-NGTD -hold statin while on Dapto, CPK normal -check weekly CBC, CMP, CPK x 2 weeks while on Dapto Stable for dc to home Resident Activity Tracking Resident Involvement: Resident Care Provided Care Provided: Adult Hospital Medicine
--- NOTE | 2019-10-12 12:23 | Infectious Disease Progress Nt ---
Date of Service October 12, 2019 Assessment & Plan (1) Cellulitis of right breast: will continue dapto. would avoid change to vanco due to morbid obesity and difficulty in achieving theraputic levels. would not change to zyvox due to pt being on wellbutrin. would suggest min 14 days IV dapto with close surgical followup (2) Abscess of right breast: Admission and Anticipated Discharge Date Admission Date: October 08, 2019 Subjective pt remains on dapto, tolerating well. afebrile. surgery following, no plans for OR at this time. blood cultures remain negative. wbc 7 Results & Data ([facility]) Vital Signs (Past 12 Hours) Vital Signs Temp Pulse Resp BP Pulse Ox 10/12/19 07:03 36.9 C 79 18 121/79 96 Laboratory Results Microbiology 10/08/19 16:19 Blood Aerobic Blood Culture - Preliminary No growth in Aerobic bottle after 48 hours. 10/08/19 16:19 Blood Anaerobic Blood Culture - Preliminary No growth in Anaerobic bottle after 48 hours. 10/08/19 16:13 Blood Aerobic Blood Culture - Preliminary No growth in Aerobic bottle after 48 hours. 10/08/19 16:13 Blood Anaerobic Blood Culture - Preliminary No growth in Anaerobic bottle after 48 hours. 10/08/19 16:38 Breast,Right Gram Stain - Final 10/08/19 16:38 Breast,Right Deep Wound Culture - Final Staph aureus MRSA PG Care Time/CCT Total # of Minutes Spent Total Time Spent with Patient: Total time spent is greater than 50% in coordination of care (as documented) at patient's floor/unit and/or counseling patient: Coding Level of Care Code 47852 Subseq Hosp Care Lvl 1 Diagnoses Cellulitis of right breast N61.0 Abscess of right breast N61.1
[2019-10-12 13:35] VITALS: BP 124/74
--- NOTE | 2019-10-12 13:42 | Billing Data ---
Date of Service October 12, 2019 Coding Level of Care Code D/C Day Management >30 mins
[2019-10-12] MEDS ORDERED: DAPTOmycin 400 MG in SYRINGE 0 ML IV SCH (14:00)
== END 2019-10-12 14:33 | disposition home health service (06) | DRG 600 ==
LOC: ED 15:09 → 2W 18:23 → SUATTDRO 18:23 → 2W 20:03

== ENCOUNTER 2020-02-08 07:58 | Inpatient (IN) ==
[2020-02-08] MEDS ORDERED: SODIUM CHLORIDE 0.9% 1000ML 1,000 ML IV ONE (08:41)
[2020-02-08] MEDS ORDERED: VANCOMYCIN HCL 2,750 MG in SODIUM CHLORIDE 0.9% 500 ML IV ONE (08:41)
[2020-02-08] MEDS ORDERED: VANCOMYCIN CONSULT ACTIVE PRN (08:41)
--- NOTE | 2020-02-08 08:59 | Emergency Department Note ---
Impression & Plan Periorbital cellulitis, Failure of outpatient treatment, History of MRSA infection ED Provider Note NAME: FOUZIA ALBA AGE: 54 SEX: F : 1965 ARRIVES VIA: Walk-In INFORMANT: [Patient] ED PROVIDER(S): [Sherif Humphries MD] CHIEF COMPLAINT: Facial redness HISTORY OF PRESENT ILLNESS: The patient is a 54-year-old female with a history of MRSA infection. 2 days ago, she developed an area of redness and inflammation just anterior to her right ear. She saw her doctors office. She was placed on Bactrim. There was a scant amount of drainage at the doctor's office. The patient states that yesterday, her left lateral eye began to swell and become painful. This morning, she has swelling about the left eye and some slight blurry vision. She states that she does have some pain to move the left eye. She has had some chills and maybe a low-grade fever. The pain is minimal unless the lesions are touched. There has been some nausea without vomiting. She has not had cough or cold or congestion. She is here today because things worsened despite the Bactrim. REVIEW OF SYSTEMS: See HPI for pertinent positives and negatives. A total of ten systems were reviewed and were otherwise negative. PMHx/PSHx: See Below SOCIAL HISTORY: See Below. PHYSICAL EXAM: GENERAL: Patient is in no acute distress. Anxious. HEENT: No acute trauma, normocephalic atraumatic, mucous membranes moist, no nasal congestion, no scleral icterus. Patient has a 2 cm area of erythema just anterior to the right pinna. This area is tender. There is a healing scabbed area in the center of the lesion. No fluctuance. The patient has edema about the left eye. Both the left upper and lower lids are swollen. She does complain of some pain to move the left eye. There is a 3 cm area of fullness lateral to the left eye. This lesion does have a healing scabbed area in its center. This area is erythematous. The area is quite tender to touch. No fluctuance. NECK: No stridor, no adenopathy, no meningismus, trachea is midline. LUNGS: Clear to auscultation bilaterally, no wheeze, no rhonchi, breath sounds equal. HEART: Without murmurs gallops or rubs, regular rate and rhythm. ABDOMEN: Soft, nontender, bowel sounds positive, no hernias, no peritonitis. EXTREMITIES: No cyanosis, mild bilateral pedal edema with some chronic skin change bilaterally, full range of motion of all the joints without pain or difficulty, no signs for acute trauma. NEUROLOGIC: Oriented x 3, no acute motor or sensory deficits, no focal weakness. SKIN: No jaundice, no diaphoresis. DIFFERENTIAL DIAGNOSIS: Sepsis, UTI, pneumonia, metabolic derangement, preseptal cellulitis, orbital cellulitis, orbital abscess, MRSA infection, failed outpatient treatment, electrolyte abnormalities, cardiac sources, intracerebral event, toxicologic, neurologic, as well as other pathologies. EMERGENCY DEPARTMENT COURSE/PROCEDURES: MEDICAL DECISION MAKING: There is no leukocytosis or worrisome anemia. There is a normal platelet count. No significant electrolyte abnormality or kidney failure. Lactic acid level is not elevated making severe sepsis less likely. No concerning liver enzyme elevation. Facial CT does show evidence for periorbital cellulitis. No abscess was visualized. On exam, the patient had some swelling about her left eye. She had some pain to move the left eye. She had some blurry vision out of her left eye. She was not febrile, she was not toxic. The patient received IV vancomycin as empiric antibiotic coverage. She was given a liter of IV saline. The patient has a periorbital cellulitis. Despite antibiotics as an outpatient, things have worsened. I do think she deserves a hospital stay and IV antibiotic therapy. I am concerned about MRSA infection given her history of MRSA. I spoke to the patient, I spoke with case management. The on-call hospitalist was consulted. Past Med/Surg History Medical History Acid reflux Anemia Asthma Cellulitis of right breast Depression Diabetic neuropathy DM (diabetes mellitus), type 2 Hyperlipidemia Mastitis in female Morbid obesity MRSA (methicillin resistant Staphylococcus aureus) Overactive bladder Venous insufficiency Surgical History H/O section History of cardiac cath History of colonoscopy History of dilation and curettage History of eye surgery History of hysteroscopy History of incision and drainage History of umbilical hernia repair Family History Aunt Breast cancer Other Heart disease Denies family history of Ovarian cancer Prostate cancer Myocardial infarction Social History Smoking Status: Never smoker Second Hand Exposure: Yes; Hx Alcohol Use: No Hx Substance Use: No Preferred Language: Mozambican Communication Ability: Effective 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 Beliefs That Will Affect Care: None marital status: Current Living Situation: Family and Significant Other Current Living Situation Comment: Lives with Child current occupational status: unemployed and disabled Other Information That Helps Us Care for You: No Feels Safe at Home: Yes Safety Concerns: Feels Safe At This Time Dental Care, Regularly: No Physical Activity Frequency: 3-4 Times per Week Sunscreen Use: No Allergies Allergies Allergy/AdvReac Type Severity Reaction Status Date / Time fluticasone Allergy Severe increased Verified 02/08/20 10:57 SOB metformin Allergy Severe Hives Verified 02/08/20 10:57 salmeterol Allergy Severe increased Verified 02/08/20 10:57 SOB adhesive tape Allergy Unknown PAPER TAPE Verified 02/08/20 10:57 - Unknown bee venom protein (honey bee) Allergy Unknown Unknown Verified 02/08/20 10:57 clindamycin Allergy Unknown Unknown Verified 02/08/20 10:57 diphenhydramine Allergy Unknown Unknown Verified 02/08/20 10:57 erythromycin base Allergy Unknown Unknown Verified 02/08/20 10:57 mometasone furoate Allergy Unknown Unknown Verified 02/08/20 10:57 Paper tape Allergy Unknown RAAH Uncoded 02/08/20 10:57 Home Meds Home Medications Medication Instructions Recorded Confirmed aspirin [Aspirin Low Dose] 81 mg PO DAILY #0 03/13/17 02/08/20 gabapentin 100 mg capsule 200 mg PO BID #0 cap 01/05/19 02/08/20 bupropion HCl 300 mg 24 hr tablet, 450 mg PO QAM tab 10/19/19 02/08/20 extended release topiramate 50 mg tablet 50 mg PO BID 12/29/19 02/08/20 Previous Rx's Medication Instructions Recorded ferrous sulfate 325 mg (65 mg 325 mg PO DAILY #90 tab 01/21/19 iron) tablet albuterol sulfate 2.5 mg INH Q4H PRN #75 ml 04/25/19 clindamycin phosphate 1 % lotion 1 appln TOPICAL DAILY #60 ml 05/11/19 atorvastatin 20 mg tablet 20 mg PO HS #90 tab 06/07/19 pantoprazole 40 mg tablet,delayed 40 mg PO DAILY #90 tab 06/07/19 release dulaglutide 1.5 mg/0.5 mL 1.5 mg SQ WEEKLY #2 ml 08/19/19 subcutaneous pen injector insulin glargine 100 unit/mL 40 units SUBCUT HS #5 pen 09/09/19 subcutaneous solution albuterol sulfate 90 mcg/actuation 2 puff INHALATION QID PRN #18 gm 10/19/19 aerosol inhaler mometasone-formoterol HFA 50 mcg-5 2 puffs INH BID #13 gm 11/08/19 mcg/actuation aerosol inhaler insulin lispro 100 unit/mL 20 unit SUBCUT BID #15 ml 11/21/19 subcutaneous pen oxybutynin chloride 10 mg 10 mg PO DAILY #90 tab 11/24/19 tablet,extended release 24 hr miscellaneous medical supply #1 ea 12/16/19 CPAP Machine #1 ea 12/19/19 epinephrine 0.3 mg/0.3 mL 0.3 mg IM Q15M PRN #2 ea 01/26/20 injection, auto-injector OneTouch Verio test strips #300 ea NS 02/06/20 pen needle, diabetic 31 gauge x #1,200 ea 02/06/2010/07" sulfamethoxazole 800 1 tab PO BID 10 Days #20 tab 02/06/20 mg-trimethoprim 160 mg tablet Results & Data (ED) Vital Signs Vital Signs - 24 hr 02/08/20 08:06 02/08/20 09:38 02/08/20 11:29 Temperature 36.8 C Temperature Source Oral Pulse Rate 93 H Pulse Rate [Right Finger] 83 88 Respiratory Rate 20 20 17 Respiratory Effort / Characteristics Non-Labored Spontaneous Non-Labored Spontaneous Respiratory Depth Normal Normal Respiratory Pattern Regular Regular Blood Pressure 138/84 Blood Pressure [Right Arm] 112/72 113/83 Blood Pressure Mean 102 Blood Pressure Mean [Right Arm] 85 93 Blood Pressure Position [Right Arm] Sitting Sitting Pulse Oximetry 100 99 97 Oxygen Delivery Method Room Air Room Air Room Air Sepsis Recent Fever Within 48 Hours No Sepsis New/Unexplained Change in Mental Status N/A Sepsis Action Taken by Nursing No Action Required Home Medications Current Medication List: was personally reviewed by me Laboratory Data Attestation: I reviewed the patient's lab results. Result diagrams: 02/08/20 09:03 02/08/20 09:03 Lab Results 02/08/20 02/08/20 02/08/20 Range/Units 09:03 09:03 09:03 WBC 9.14 (4.8-10.8) K/uL RBC 5.01 (4.2-5.4) M/uL Hgb 14.4 (12.0-16.0) g/dL Hct 44.9 (37-47) % MCV 89.6 (80-100) fL MCH 28.7 (25-34) pg MCHC 32.1 (32-36) g/dL RDW Std Deviation 48.7 H (36.4-46.3) fL RDW Coeff of Lan 14.9 H (11.5-14.5) % Plt Count 218 (130-400) K/uL MPV 10.7 H (7.4-10.4) fL Immature Gran % (Auto) 0.2 % Neut % (Auto) 75.5 % Lymph % (Auto) 13.9 % Forest % (Auto) 9.0 % Eos % (Auto) 1.2 % Baso % (Auto) 0.2 % Neut # (Auto) 6.90 H (1.4-6.5) K/uL Lymph # (Auto) 1.27 (1.2-3.4) K/uL Forest # (Auto) 0.82 H (0.11-0.59) K/uL Eos # (Auto) 0.11 (0-0.5) K/uL Baso # (Auto) 0.02 (0-0.2) K/uL Immature Gran # (Auto) 0.02 (0.00-0.02) K/uL Sodium 139 (136-145) mmol/L Potassium 3.8 (3.5-5.1) mmol/L Chloride 111 H (98-107) mmol/L Carbon Dioxide 21 (21-32) mmol/L Anion Gap 7.0 (3-11) BUN 11 (7-18) mg/dl Creatinine 1.11 (0.6-1.2) mg/dl Est Cr Clr Drug Dosing 93.2 ml/min Est GFR ( Amer) 66.1 Est GFR (Non-Af Amer) 57.1 BUN/Creatinine Ratio 10.0 (10-20) Glucose 148 H (70-99) mg/dl Lactate 1.0 (0.4-2.0) mmol/L Calcium 9.3 (8.5-10.1) mg/dl Total Bilirubin 0.9 (0.2-1) mg/dl AST 12 L (15-37) U/L ALT 24 (12-78) U/L Alkaline Phosphatase 126 H (45-117) U/L Total Protein 7.7 (6.4-8.2) gm/dl Albumin 3.3 L (3.4-5.0) gm/dl Globulin 4.4 H (2.5-4.0) gm/dl Albumin/Globulin Ratio 0.7 L (0.9-2) Administered Medications Insulin Aspart (Insulin Aspart 100 Units/Ml 3 Ml Pen) 0 units SC ACHS CHRISTINE Stop: 03/09/20 16:29 Last Admin: 02/08/20 13:32 Dose: 4 units Documented by: [id number] Cosigned by: [id number] Discontinued Medications Vancomycin HCl 2,750 mg/ (Sodium Chloride) 555 mls @ 200 mls/hr IV NOW ONE Stop: 02/08/20 11:30 Last Infusion: 02/08/20 13:12 Dose: 0 mls/hr Documented by: [id number] Admin: 02/08/20 09:36 Dose: 200 mls/hr Documented by: [id number] Sodium Chloride (Nss 1000ml) 1,000 mls @ 999 mls/hr IV .Q1H1M ONE Stop: 02/08/20 09:41 Last Infusion: 02/08/20 11:30 Dose: 0 mls/hr Documented by: [id number] Admin: 02/08/20 09:36 Dose: 999 mls/hr Documented by: [id number] Ceftriaxone Sodium (Rocephin) 2,000 mg in 70 mls @ 140 mls/hr IV NOW STA Stop: 02/08/20 12:01 Last Infusion: 02/08/20 13:43 Dose: 0 mls/hr Documented by: [id number] Admin: 02/08/20 13:11 Dose: 140 mls/hr Documented by: [id number] Ioversol (Ioversol 100ml) 94 ml IV ONCE ONE Stop: 09/16/20 09:45 Last Admin: 02/08/20 13:07 Dose: Not Given Documented by: [id number] Ioversol (Optiray 320 125ml) 120 ml IV ONCE ONE Stop: 02/08/20 09:48 Last Admin: 02/08/20 09:48 Dose: 120 ml Documented by: [id number] Imaging Data Radiologist's Impression: CT facial bones w con CT DOSE: 698.55 mGy.cm CLINICAL HISTORY: Facial swelling. Possible orbital cellulitis.. TECHNIQUE: The patient was scanned in a dynamic helical fashion during intravenous administration of 120 cc of Optiray 320. Sagittal coronal reformat fahad images were acquired A dose lowering technique was utilized adhering to the principles of ALARA. COMPARISON STUDY: 02/28/2019 FINDINGS: There is left periorbital and paranasal soft tissue edema. No abnormalities of the globe are visualized. There is no evidence for a post septal abscess. The sphenoid ethmoid and maxillary and frontal sinuses are clear. There are mildly prominent bilateral cervical lymph nodes likely reactive. There are no fluid collections to indicate an abscess. There is a dental apical abscess involving a right maxillary incisor IMPRESSION: 1. Left periorbital and paranasal soft tissue edema, consistent with a periorbital cellulitis. No evidence of post septal abscess. Blood Pressure Blood Pressure Findings: Elevated blood pressure Blood Pressure Disposition: further management by hospitalist Discharge Plan Visit Data Chief Complaint: Allergic Reaction Stated Complaint: HIVES ED Provider: Sherif Humphries Discharge Problem: Periorbital cellulitis, Failure of outpatient treatment, History of MRSA infection Patient Disposition: Admitted As Inpatient Condition: Good Discharge Instructions Interventions: ED Discharge Assessment Last Done: 02/08/20 12:00 Discharge Problem: Periorbital cellulitis Qualifiers: Laterality: left Qualified Code(s): L03.213 - Periorbital cellulitis
[2020-02-08 09:16] LABS: Basophils # (auto) 0.02 K/uL (0-0.2); Basophils % (auto) 0.2 %; Eosinophils # (auto) 0.11 K/uL (0-0.5); Eosinophils % (auto) 1.2 %; Hematocrit (blood only) 44.9 % (37-47); Hemoglobin 14.4 g/dL (12.0-16.0); Immature Granulocytes # (auto) 0.02 K/uL (0.00-0.02); Immature Granulocytes % (auto) 0.2 %; Lymphocytes # (auto) 1.27 K/uL (1.2-3.4); Lymphocytes % (auto) 13.9 %; Mean Corpuscular Hemoglobin 28.7 pg (25-34); Mean Corpuscular Hgb Conc 32.1 g/dL (32-36); Mean Corpuscular Volume 89.6 fL (80-100); Mean Platelet Volume 10.7 fL (7.4-10.4); Monocytes # (auto) 0.82 K/uL (0.11-0.59); Neutrophils % (auto) 75.5 %; Platelet Count 218 K/uL (130-400); RDW Coefficient of Variation 14.9 % (11.5-14.5); RDW Standard Deviation 48.7 fL (36.4-46.3); Red Blood Count 5.01 M/uL (4.2-5.4); White Blood Count 9.14 K/uL (4.8-10.8)
[2020-02-08 09:34] LABS: Albumin Level 3.3 gm/dl (3.4-5.0); Calcium 9.3 mg/dl (8.5-10.1); Creatinine Clr Calc Pharmacy 93.2 ml/min; Est GFR (African American) 66.1; Est GFR (Non-African American) 57.1; Potassium 3.8 mmol/L (3.5-5.1)
[2020-02-08 09:37] LABS: Albumin Globulin Ratio 0.7 (0.9-2); Bilirubin,Total 0.9 mg/dl (0.2-1); Globulin 4.4 gm/dl (2.5-4.0); Total Protein 7.7 gm/dl (6.4-8.2)
[2020-02-08] MEDS ORDERED: IOVERSOL 100ml IV ONE (09:44)
[2020-02-08] MEDS ORDERED: OPTIRAY 320 125ml IV ONE (09:47)
--- NOTE | 2020-02-08 10:42 | CT Scan Report ---
CT facial bones w con CT DOSE: 698.55 mGy.cm CLINICAL HISTORY: Facial swelling. Possible orbital cellulitis.. TECHNIQUE: The patient was scanned in a dynamic helical fashion during intravenous administration of 120 cc of Optiray 320. Sagittal coronal reformatted images were acquired A dose lowering technique w as utilized adhering to the principles of ALARA. COMPARISON STUDY: 02/28/2019 FINDINGS: There is left periorbital and paranasal soft tissue edema. No abnormalities of the globe ar e visualized. There is no evidence for a post septal abscess. The sphenoid ethmoid and maxillary and frontal sinuses are clear. There are mildly prominent bilateral cervical lymph nodes likely reactive. There are no fluid collections to indicate an abscess. There is a dental apical abscess involving a right maxillary incisor IMPRESSION: 1. Left periorbital and paranasal soft tissue edema, consistent with a periorbital cellulitis. No pina dence of post septal abscess. ACT 112: Negative or not required by law. Electronically signed by: Taz Burgos M.D. 02/08/2020 10:41 AM
[2020-02-08] MEDS ORDERED: cefTRIAXone SODIUM 2,000 MG/70 ML BAG IV STA (11:32)
--- NOTE | 2020-02-08 11:41 | History & Physical Report ---
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 Contact isolation. Monitor for diplopia, pain with eye movements. (2) Dental abscess: Currently not causing significant issue but may need anaerobic coverage if cellulitis is not improving. Follow-up with your dentist as outpatient. (3) PHONG (obstructive sleep apnea): May use own CPAP. (4) Type II diabetes with fdc use of insulin: HbA1c 7.2 in September. We will repeat with a.m. labs Basal insulin coverage until tonight's with 40 units taken yesterday evening. Hold her usual insulin and Trulicity regimen. Switch to Lantus 20 units twice daily starting tonight. NovoLog sliding scale, aim 100-140, correction 20mg/dL/unit, 1 unit per 7 g carbs (5) Acid reflux: Continue pantoprazole 40 mg p.o. daily (6) Asthma: No acute exacerbation. continue Dulera inhaler for hospital formulary equivalent. (7) Overactive bladder: Continue oxybutynin 10 mg p.o. daily (8) DVT prophylaxis: SCDs. May need chemical anticoagulation if stay is prolonged. Admission and Anticipated Discharge Date Admission Date: February 08, 2020 History of Present Illness Chief Complaint: Preseptal cellulitis Primary Care Provider: ANTOINE Carvalho Jayne Thompson is a 54 year old female who presents to the ER with blurring vision, swelling and erythema around her left eye. 2 days previously she was seen by her PCP due to preauricular right-sided erythema and swelling. She was diagnosed with a small abscess anterior to her right ear. Unable to express any drainage to swab. She was started on Bactrim - of which she took 2 doses. Despite taking Bactrim last night she started developing mild swelling around her left eye with associated blurring of her vision. This morning she woke up with complete swelling around her eye which prompted her visit to the ER. She denies any fevers or chills. Initially she reported painless vision loss in her left eye however after putting her glasses on she reports her vision is at baseline without diplopia or painful movements. 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 CT face in the ER showed preseptal cellulitis without drainable abscess or evidence of postseptal cellulitis - she was referred to medicine for admission given failure of Bactrim as outpatient and immunocompromises state with diabetes. WBC 9.14. Allergies Allergy/AdvReac Type Severity Reaction Status Date / Time fluticasone Allergy Severe increased Verified 02/08/20 10:57 SOB metformin Allergy Severe Hives Verified 02/08/20 10:57 salmeterol Allergy Severe increased Verified 02/08/20 10:57 SOB adhesive tape Allergy Unknown PAPER TAPE Verified 02/08/20 10:57 - Unknown bee venom protein (honey bee) Allergy Unknown Unknown Verified 02/08/20 10:57 clindamycin Allergy Unknown Unknown Verified 02/08/20 10:57 diphenhydramine Allergy Unknown Unknown Verified 02/08/20 10:57 erythromycin base Allergy Unknown Unknown Verified 02/08/20 10:57 mometasone furoate Allergy Unknown Unknown Verified 02/08/20 10:57 Paper tape Allergy Unknown RAAH Uncoded 02/08/20 10:57 Home Medications Home Medications Medication Instructions Recorded Confirmed Type aspirin [Aspirin Low Dose] 81 mg PO DAILY #0 03/13/17 02/08/20 History gabapentin 100 mg capsule 200 mg PO BID #0 cap 01/05/19 02/08/20 History ferrous sulfate 325 mg (65 mg 325 mg PO DAILY #90 tab 01/21/19 02/08/20 Rx iron) tablet albuterol sulfate 2.5 mg INH Q4H PRN #75 ml 04/25/19 02/08/20 Rx clindamycin phosphate 1 % lotion 1 appln TOPICAL DAILY #60 ml 05/11/19 02/08/20 Rx atorvastatin 20 mg tablet 20 mg PO HS #90 tab 06/07/19 02/08/20 Rx pantoprazole 40 mg tablet,delayed 40 mg PO DAILY #90 tab 06/07/19 02/08/20 Rx release dulaglutide 1.5 mg/0.5 mL 1.5 mg SQ WEEKLY #2 ml 08/19/19 02/08/20 Rx subcutaneous pen injector insulin glargine 100 unit/mL 40 units SUBCUT HS #5 pen 09/09/19 02/08/20 Rx subcutaneous solution albuterol sulfate 90 mcg/actuation 2 puff INHALATION QID PRN #18 gm 10/19/19 02/08/20 Rx aerosol inhaler bupropion HCl 300 mg 24 hr tablet, 450 mg PO QAM tab 10/19/19 02/08/20 History extended release mometasone-formoterol HFA 50 mcg-5 2 puffs INH BID #13 gm 11/08/19 02/08/20 Rx mcg/actuation aerosol inhaler insulin lispro 100 unit/mL 20 unit SUBCUT BID #15 ml 11/21/19 02/08/20 Rx subcutaneous pen oxybutynin chloride 10 mg 10 mg PO DAILY #90 tab 11/24/19 02/08/20 Rx tablet,extended release 24 hr miscellaneous medical supply #1 ea 12/16/19 02/06/20 Rx CPAP Machine #1 ea 12/19/19 02/06/20 Rx topiramate 50 mg tablet 50 mg PO BID 12/29/19 02/08/20 History epinephrine 0.3 mg/0.3 mL 0.3 mg IM Q15M PRN #2 ea 01/26/20 02/08/20 Rx injection, auto-injector OpalityTouch Verio test strips #300 ea NS 02/06/20 02/06/20 Rx pen needle, diabetic 31 gauge x #1,200 ea 02/06/20 02/06/20 Rx 10/07" sulfamethoxazole 800 1 tab PO BID 10 Days #20 tab 02/06/20 02/08/20 Rx mg-trimethoprim 160 mg tablet Past Med/Surg History Medical History Acid reflux Anemia Asthma Cellulitis of right breast Depression Diabetic neuropathy DM (diabetes mellitus), type 2 Hyperlipidemia Mastitis in female Morbid obesity MRSA (methicillin resistant Staphylococcus aureus) Overactive bladder Venous insufficiency Surgical History H/O section History of cardiac cath History of colonoscopy History of dilation and curettage History of eye surgery History of hysteroscopy History of incision and drainage History of umbilical hernia repair Family History Aunt Breast cancer Other Heart disease Denies family history of Ovarian cancer Prostate cancer Myocardial infarction Social History Smoking Status: Never smoker Second Hand Exposure: Yes; Hx Alcohol Use: No Hx Substance Use: No Preferred Language: Ivorian Communication Ability: Effective 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 Beliefs That Will Affect Care: None marital status: Current Living Situation: Family and Significant Other Current Living Situation Comment: Lives with Child current occupational status: unemployed and disabled Other Information That Helps Us Care for You: No Feels Safe at Home: Yes Safety Concerns: Feels Safe At This Time Dental Care, Regularly: No Physical Activity Frequency: 3-4 Times per Week Sunscreen Use: No Review of Systems Review of Systems: All systems reviewed & are unremarkable except as noted in HPI & below Physical Exam Constitutional: + morbidly obese Eyes: normal visual miranda by confrontation, + anicteric sclerae, PERRL and EOM intact bilaterally (Without pain); normal light reflex, no nystagmus and no papilledema Gross visual acuity at baseline corrected with glasses ENMT: Mouth: no oral mucosal abnormality Neck: trachea midline Respiratory: normal respiratory effort, lungs clear to auscultation Cardiovascular: Rate/Rhythm: regular rate and regular rhythm Heart Sounds: + murmur (Systolic LUSB) Extremities: normal capillary refill and + pedal edema (2+ to knees bilaterally equal); no calf tenderness Gastrointestinal (Abdomen): Inspection/Auscultation: normal bowel sounds Musculoskeletal: no cyanosis or clubbing, extremities motor strength 5/5 Skin: Cellulitis over right pre-auricular 3 cm circular with central scab but no fluctuance. Preseptal cellulitis with swelling and mild erythema mainly inferiorly around left eye. Area of cellulitis 4cm just lateral to left eye, nonfluctuant, confluent with with preseptal cellulitis surrounding left eye Neurologic: moves all extremities and awake; not confused Psychiatric: A+Ox3, euthymic affect Lymphatic: + cervical lymphadenopathy (Bilateral shotty) Results & Data Results & Data ([facility]) Vital Signs (Past 12 Hours) Vital Signs Temp Pulse Pulse Resp BP BP Pulse Ox 02/08/20 11:29 88 17 113/83 97 02/08/20 09:38 83 20 112/72 99 02/08/20 08:06 36.8 C 93 H 20 138/[address] facial bones w con IMPRESSION: 1. Left periorbital and paranasal soft tissue edema, consistent with a periorbital cellulitis. No evidence of post septal abscess. 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
[2020-02-08] MEDS ORDERED: POLYETHYLENE (MIRALAX) 17 GM PACK PO PRN (12:34)
[2020-02-08] MEDS ORDERED: DEXTROSE 50% 50 ML SYRINGE IV PRN (12:34)
[2020-02-08] MEDS ORDERED: CARBOHYDRATES FOR HYPOGLYCEMIA PO PRN (12:34)
[2020-02-08] MEDS ORDERED: DAPTOMYCIN CONSULT ACTIVE PRN (12:34)
[2020-02-08] MEDS ORDERED: ONDANSETRON INJ 2 MG/ML 2 ML VIAL IV PRN (12:34)
[2020-02-08] MEDS ORDERED: GLUCOSE 10 TABS/TUBE PO PRN (12:34)
[2020-02-08] MEDS ORDERED: GLUCAGON FOR INJ 1 MG VIAL SQ PRN (12:34)
[2020-02-08] MEDS ORDERED: GLUCOSE 40% GEL 15 GM TUBE PO PRN (12:34)
[2020-02-08] MEDS ORDERED: ALBUTEROL HFA INHALER 8.5 GM INH PRN (12:55)
[2020-02-08] MEDS: INSULIN ASPART 100 UNITS/ML 3 ML PEN SC SCH ×3 (13:32→21:39)
[2020-02-08] MEDS: DAPTOmycin 600 MG in SYRINGE 0 ML IV SCH (15:12)
[2020-02-08] MEDS: [UNRECOGNIZED DRUG - REMARK] SCH (15:33)
[2020-02-08] MEDS: ACETAMINOPHEN 325 MG TAB PO PRN (15:44)
[2020-02-08] MEDS ORDERED: ATORVASTATIN 20 MG TAB PO SCH (21:00)
[2020-02-08] MEDS: TOPIRAMATE 50 MG TAB PO SCH (21:20)
[2020-02-08] MEDS: GABAPENTIN 100 MG CAP PO SCH (21:20)
[2020-02-08] MEDS: INSULIN GLARGINE SOLOSTAR 100 UNITS/ML 3 ML PEN SC SCH (21:39)
[2020-02-09] MEDS: [UNRECOGNIZED DRUG - REMARK] SCH ×4 (00:04→23:40)
[2020-02-09 06:47] LABS: Hematocrit (blood only) 39.9 % (37-47); Hemoglobin 13.2 g/dL (12.0-16.0); Mean Corpuscular Hemoglobin 29.4 pg (25-34); Mean Corpuscular Hgb Conc 33.1 g/dL (32-36); Mean Corpuscular Volume 88.9 fL (80-100); Mean Platelet Volume 10.7 fL (7.4-10.4); Platelet Count 199 K/uL (130-400); RDW Coefficient of Variation 14.8 % (11.5-14.5); RDW Standard Deviation 47.8 fL (36.4-46.3); Red Blood Count 4.49 M/uL (4.2-5.4); White Blood Count 7.74 K/uL (4.8-10.8)
[2020-02-09 07:20] LABS: BUN Creatinine Ratio 8.6 (10-20); Calcium 8.8 mg/dl (8.5-10.1); Creatinine Clr Calc Pharmacy 99.5 ml/min; Est GFR (African American) 71.5; Est GFR (Non-African American) 61.7; Potassium 3.7 mmol/L (3.5-5.1)
[2020-02-09 07:47] LABS: Estimated Average Glucose 209 mg/dl; Hemoglobin A1C 8.9 % (4.5-5.6)
[2020-02-09] MEDS: FERROUS SULFATE 325 MG TAB PO SCH (09:06)
[2020-02-09] MEDS: GABAPENTIN 100 MG CAP PO SCH ×2 (09:06→20:59)
[2020-02-09] MEDS: OXYBUTYNIN CHLORIDE XL 5 MG TABCR PO SCH (09:06)
[2020-02-09] MEDS: PANTOprazole 40 MG TAB PO SCH (09:06)
[2020-02-09] MEDS: ASPIRIN 81 MG ECTAB PO SCH (09:06)
[2020-02-09] MEDS: BuPROPion XL 150 MG TABCR PO SCH (09:07)
[2020-02-09] MEDS: TOPIRAMATE 50 MG TAB PO SCH ×2 (09:07→20:59)
[2020-02-09] MEDS: INSULIN ASPART 100 UNITS/ML 3 ML PEN SC SCH ×4 (09:10→21:03)
[2020-02-09] MEDS: INSULIN GLARGINE SOLOSTAR 100 UNITS/ML 3 ML PEN SC SCH ×2 (09:11→21:01)
[2020-02-09] MEDS: cefTRIAXone SODIUM 2,000 MG in DEXTROSE 5% 50 ML IV SCH (12:21)
[2020-02-09] MEDS: ACETAMINOPHEN 325 MG TAB PO PRN ×2 (12:43→17:31)
--- NOTE | 2020-02-09 12:49 | Hospitalist Progress Note ---
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 Contact isolation. Cellulitis improving (2) Dental abscess: Currently not causing significant issue, will hold off on adding anaerobic coverage as she is improving Follow-up with dentist as outpatient. (3) PHONG (obstructive sleep apnea): May use own CPAP. (4) Type II diabetes with shelter use of insulin: HbA1c 8.9%. Patient reports she lost her glucometer and wasn't checking her sugars Hold her usual insulin and Trulicity regimen. Continue Lantus 20 units twice daily NovoLog sliding scale, aim 100-140, correction 20mg/dL/unit, 1 unit per 7 g carb s Consult natural resources extension educator (5) Acid reflux: Continue pantoprazole 40 mg p.o. daily (6) Asthma: No acute exacerbation, no complaints of sob or cough continue Dulera inhaler for hospital formulary equivalent. (7) Overactive bladder: Continue oxybutynin 10 mg p.o. daily (8) DVT prophylaxis: SCDs, enoxaparin Admission and Anticipated Discharge Date Admission Date: February 08, 2020 Subjective Ms. Thompson feels she is improving, the swelling around her eye has decreased, no visual changes. The abscess on her right cheek has begun draining. The left cheek abscess has not opened ROS Constitutional: no chills, aches, sweats or fever Respiratory: no sob,cough, sputum, or wheezing Cardiac: no chest pain, palpitations, edema, orthopnea or lightheadedness GI: no abdominal pain, nausea, vomiting, diarrhea or constipation : no dysuria or hesitancy Extremities: no joint pain or weakness Skin: no rash, see HPI All other systems reviewed and negative Physical Exam Physical Exam: General: no distress Eyes: normal inspection, PERLL Respiratory: chest non tender, clear to auscultation, normal breath sounds, no respiratory distress, no accessory muscle use Cardiac: regular rate and rhythm, no rub or gallop, no murmur, no edema, no jvd GI/: active bowel sounds, no abd pain or tenderness, soft, non distended Extremities: normal range of motion, normal strength, non tender Neuro/Psych: alert and oriented x 3, normal mood and affect Skin: normal color, dry Results & Data Results & Data ([facility]) Vital Signs (Past 12 Hours) Vital Signs Temp Pulse Resp BP Pulse Ox 02/09/20 07:30 36.9 C 85 16 107/68 97 PG Care Time/CCT Total # of Minutes Spent Total Time Spent with Patient: Total time spent is greater than 50% in coordination of care (as documented) at patient's floor/unit and/or counseling patient: Coding Level of Care Code 03745 Subseq Hosp Care Lvl 3 Diagnoses Preseptal cellulitis of left eye L03.213 Dental abscess K04.7 PHONG (obstructive sleep apnea) G47.33 Type II diabetes with shelter use of insulin E11.9; Z79.4 Acid reflux K21.9 Asthma J45.20 Asthma complication type: uncomplicated Asthma persistence: intermittent Asthma severity: mild Overactive bladder N32.81 DVT prophylaxis Z29.9 (1) Asthma Asthma complication type: uncomplicated Asthma persistence: intermittent Asthma severity: mild Qualified Code(s): J45.20 - Mild intermittent asthma, uncomplicated
[2020-02-09] MEDS: DAPTOmycin 600 MG in SYRINGE 0 ML IV SCH (14:24)
--- NOTE | 2020-02-09 16:31 | Surgery Consultation ---
Date of Consultation February 09, 2020 Assessment & Plan (1) Periorbital cellulitis: Patient with two facial abscess and history of MRSA, known MRSA carrier. She reports having done MRSA eradication in the past, but has had multiple abscess in the past that are known to be MRSA. Today's facial abscess are highly consistent with MRSA, as they are not significantly fluctuant an have minimal drainage. We discussed I&D with packing to allow better antibiotic penetration. Both areas were prepped anesthetized with 1% lidocaine with epi and incised with an 11 blade. The cavity was irrigated with sterile saline with packed with 1/4 inch iodoform gauze. Culture taken from pre-auricular abscess. Will re-evaluate tomorrow with Dr. Cortes. Advise outpatient follow-up with infectious disease to try another eradication of MRSA. (2) History of MRSA infection: History of Present Illness Attending Physician: Gibson Leach DO Godoy is being seen today for Plastic Surgery consultation regarding multiple facial abscess. She presented to the ED yesterday after developing worsening swelling of the left eye and blurred vision. Prior to the left eye swelling, she had right preauricular abscess that she was treating with PO Bactrim (2 doses in). She denies any fevers or chills. Initially she reported painless vision loss in her left eye however after putting her glasses on she reports her vision is at baseline without diplopia or painful movements. 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 CT face in the ER showed preseptal cellulitis without drainable abscess or evidence of postseptal cellulitis - she was referred to medicine for admission given failure of Bactrim as outpatient and immunocompromises state with diabetes. WBC 9.14. She is currently on Continue daptomycin, ceftriaxone 2 g IV daily. Right preauricular abscess started draining earlier today. She is a known MRSA carrier and is known to us for history of facial I&D for MRSA in the past. She also has history of DM !!, PHONG, and dental abscess. Allergies Allergy/AdvReac Type Severity Reaction Status Date / Time fluticasone Allergy Severe increased Verified 02/08/20 10:57 SOB metformin Allergy Severe Hives Verified 02/08/20 10:57 salmeterol Allergy Severe increased Verified 02/08/20 10:57 SOB adhesive tape Allergy Unknown PAPER TAPE Verified 02/08/20 10:57 - Unknown bee venom protein (honey bee) Allergy Unknown Unknown Verified 02/08/20 10:57 clindamycin Allergy Unknown Unknown Verified 02/08/20 10:57 diphenhydramine Allergy Unknown Unknown Verified 02/08/20 10:57 erythromycin base Allergy Unknown Unknown Verified 02/08/20 10:57 mometasone furoate Allergy Unknown Unknown Verified 02/08/20 10:57 Paper tape Allergy Unknown RAAH Uncoded 02/08/20 10:57 Home Medications Home Medications Medication Instructions Recorded Confirmed Type aspirin [Aspirin Low Dose] 81 mg PO DAILY #0 03/13/17 02/08/20 History gabapentin 100 mg capsule 200 mg PO BID #0 cap 01/05/19 02/08/20 History ferrous sulfate 325 mg (65 mg 325 mg PO DAILY #90 tab 01/21/19 02/08/20 Rx iron) tablet albuterol sulfate 2.5 mg INH Q4H PRN #75 ml 04/25/19 02/08/20 Rx clindamycin phosphate 1 % lotion 1 appln TOPICAL DAILY #60 ml 05/11/19 02/08/20 Rx atorvastatin 20 mg tablet 20 mg PO HS #90 tab 06/07/19 02/08/20 Rx pantoprazole 40 mg tablet,delayed 40 mg PO DAILY #90 tab 06/07/19 02/08/20 Rx release dulaglutide 1.5 mg/0.5 mL 1.5 mg SQ WEEKLY #2 ml 08/19/19 02/08/20 Rx subcutaneous pen injector insulin glargine 100 unit/mL 40 units SUBCUT HS #5 pen 09/09/19 02/08/20 Rx subcutaneous solution albuterol sulfate 90 mcg/actuation 2 puff INHALATION QID PRN #18 gm 10/19/19 02/08/20 Rx aerosol inhaler bupropion HCl 300 mg 24 hr tablet, 450 mg PO QAM tab 10/19/19 02/08/20 History extended release mometasone-formoterol HFA 50 mcg-5 2 puffs INH BID #13 gm 11/08/19 02/08/20 Rx mcg/actuation aerosol inhaler oxybutynin chloride 10 mg 10 mg PO DAILY #90 tab 11/24/19 02/08/20 Rx tablet,extended release 24 hr miscellaneous medical supply #1 ea 12/16/19 02/06/20 Rx CPAP Machine #1 ea 12/19/19 02/06/20 Rx topiramate 50 mg tablet 50 mg PO BID 12/29/19 02/08/20 History epinephrine 0.3 mg/0.3 mL 0.3 mg IM Q15M PRN #2 ea 01/26/20 02/08/20 Rx injection, auto-injector [facility] Verio test strips #300 ea NS 02/06/20 02/06/20 Rx pen needle, diabetic 31 gauge x #1,200 ea 02/06/20 02/06/20 Rx 10/07" sulfamethoxazole 800 1 tab PO BID 10 Days #20 tab 02/06/20 02/08/20 Rx mg-trimethoprim 160 mg tablet insulin lispro 100 unit/mL 20 unit SUBCUT BID #15 ml 02/08/20 Rx subcutaneous pen Patient History Medical History Acid reflux Anemia Asthma Cellulitis of right breast Depression Diabetic neuropathy DM (diabetes mellitus), type 2 Hyperlipidemia Mastitis in female Morbid obesity MRSA (methicillin resistant Staphylococcus aureus) Overactive bladder Venous insufficiency Surgical History H/O section History of cardiac cath History of colonoscopy History of dilation and curettage History of eye surgery History of hysteroscopy History of incision and drainage History of umbilical hernia repair Family History Aunt Breast cancer Other Heart disease Denies family history of Ovarian cancer Prostate cancer Myocardial infarction Social History Smoking Status: Never smoker Second Hand Exposure: Yes; Hx Alcohol Use: No Hx Substance Use: No Preferred Language: Occitan Communication Ability: Effective Gristmiller Required: No Beliefs That Will Affect Care: None marital status: Current Living Situation: Family and Significant Other Current Living Situation Comment: Lives with Child current occupational status: unemployed and disabled Other Information That Helps Us Care for You: No Feels Safe at Home: Yes Safety Concerns: Feels Safe At This Time Dental Care, Regularly: No Physical Activity Frequency: 3-4 Times per Week Sunscreen Use: No Review of Systems Constitutional: as per Subjective / HPI Integumentary: as per Subjective / HPI Physical Exam Constitutional: WD/WN, vitals as above Skin: + right preauricular abscess that is indurated, minimall fluctuant with central drainage. Left periorbital abscess with significant periorbital cellulitis, also indurated but minimally fluctuant Psychiatric: A+Ox3, euthymic affect Results & Data ([facility]) Vital Signs (Past 12 Hours) Vital Signs Temp Pulse Resp BP Pulse Ox 02/09/20 15:43 37.7 C H 85 18 106/71 94 02/09/20 07:30 36.9 C 85 16 107/68 97 PG Care Time/CCT Total # of Minutes Spent Total Time Spent with Patient: Total time spent is greater than 50% in coordination of care (as documented) at patient's floor/unit and/or counseling patient: Coding Level of Care Code 06486 Inpt Consult Level 2 Diagnoses Periorbital cellulitis L03.213 Laterality: left History of MRSA infection Z86.14 (1) Periorbital cellulitis Laterality: left Qualified Code(s): L03.213 - Periorbital cellulitis
[2020-02-09] MEDS: ENOXAPARIN INJ 40 MG/0.4 ML SYR SQ SCH (18:53)
[2020-02-09] MEDS ORDERED: ENOXAPARIN INJ 40 MG/0.4 ML SYR SQ SCH (21:00)
[2020-02-10] MEDS: ENOXAPARIN INJ 40 MG/0.4 ML SYR SQ SCH ×2 (05:20→18:41)
[2020-02-10 06:03] LABS: Hematocrit (blood only) 43.1 % (37-47); Hemoglobin 13.8 g/dL (12.0-16.0); Mean Corpuscular Hemoglobin 28.7 pg (25-34); Mean Corpuscular Volume 89.6 fL (80-100); Mean Platelet Volume 10.9 fL (7.4-10.4); Platelet Count 235 K/uL (130-400); RDW Coefficient of Variation 14.8 % (11.5-14.5); RDW Standard Deviation 48.7 fL (36.4-46.3); Red Blood Count 4.81 M/uL (4.2-5.4); White Blood Count 8.97 K/uL (4.8-10.8)
[2020-02-10 06:20] LABS: BUN Creatinine Ratio 10.7 (10-20); Calcium 8.9 mg/dl (8.5-10.1); Creatinine Clr Calc Pharmacy 97.6 ml/min; Est GFR (African American) 69.9; Est GFR (Non-African American) 60.3; Potassium 3.8 mmol/L (3.5-5.1)
[2020-02-10] MEDS: [UNRECOGNIZED DRUG - REMARK] SCH ×3 (08:12→23:43)
[2020-02-10] MEDS: FERROUS SULFATE 325 MG TAB PO SCH (08:13)
[2020-02-10] MEDS: BuPROPion XL 150 MG TABCR PO SCH (08:14)
[2020-02-10] MEDS: PANTOprazole 40 MG TAB PO SCH (08:14)
[2020-02-10] MEDS: OXYBUTYNIN CHLORIDE XL 5 MG TABCR PO SCH (08:15)
[2020-02-10] MEDS: ASPIRIN 81 MG ECTAB PO SCH (08:15)
[2020-02-10] MEDS: GABAPENTIN 100 MG CAP PO SCH ×2 (08:15→21:24)
[2020-02-10] MEDS: INSULIN GLARGINE SOLOSTAR 100 UNITS/ML 3 ML PEN SC SCH ×2 (08:17→21:26)
[2020-02-10] MEDS: INSULIN ASPART 100 UNITS/ML 3 ML PEN SC SCH ×4 (08:21→21:25)
[2020-02-10] MEDS: TOPIRAMATE 50 MG TAB PO SCH ×2 (09:15→21:24)
[2020-02-10] MEDS: metroNIDAZOLE 500 MG/100 ML BAG IV SCH ×2 (10:51→18:42)
--- NOTE | 2020-02-10 11:29 | Surgery Progress Note ---
Date of Service February 10, 2020 Assessment & Plan Admission and Anticipated Discharge Date Admission Date: Likely MRSA abscess x 2- add warm compress and change packing daily. IV abx coverage per medicine. Patient was seen today by Dr. Cortes. Supervising Physician Co-Signing Physician Notes I personally saw and examined this patient and agree with the assessment and ronnie n. Patient with likely MRSA preseptal cellulitis, visual obstruction due to swelling with normal visual acuity. s/p I+D with minimal purulence. Recommend warm compresses and IV antibiotics. No role for further surgical intervention at present. Please reconsult if needed. Subjective Patient resting comfortably. VSS. Started on Flagyl. Prelim cultures reveal st aph A. She reports drainage from wounds s/p I&D yesterday. Review of Systems Constitutional: as per Subjective / HPI Integumentary: as per Subjective / HPI Physical Exam Constitutional: WD/WN, vitals as above Skin: abscess right preauricular and left eye remain not significantly changed from yesterday- still indurated with minimal fluctuance or drainage. Psychiatric: A+Ox3, euthymic affect Results & Data ([facility]) Vital Signs (Past 12 Hours) Vital Signs Temp Pulse Resp BP Pulse Ox 02/10/20 07:36 37.1 C 88 16 115/75 94 02/09/20 23:39 37.2 C 81 14 110/75 94 PG Care Time/CCT Total # of Minutes Spent Total Time Spent with Patient: Total time spent is greater than 50% in coordination of care (as documented) at patient's floor/unit and/or counseling patient: Coding Level of Care Code 24522 Subseq Hosp Care Lvl 2
[2020-02-10] MEDS: cefTRIAXone SODIUM 2,000 MG in DEXTROSE 5% 50 ML IV SCH (12:10)
[2020-02-10] MEDS: DAPTOmycin 600 MG in SYRINGE 0 ML IV SCH (14:37)
--- NOTE | 2020-02-10 14:40 | Hospitalist Progress Note ---
Date of Service February 10, 2020 Assessment & Plan (1) Preseptal cellulitis of left eye: Continue daptomycin, ceftriaxone 2 g IV daily, added Flagyl for anaerobe coverage - can likely discharge with Bactrim and Augmentin. Bactrim had been taken for 2 days before she came to the hospital but this is less likely a failure of treatment than the treatment just not taking effect with the abscesses yet. Now that she has had the abscesses opened and drained it may be more effective going forward. 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 Contact isolation. Cellulitis worsened today but maybe more due to manipulation of left abscess during I&D by plastic surgery yesterday than because of worsening. Plastic surgery also I&D'd the left abscess as well. Warm compresses and change packing daily Patient will need referral to infectious disease for eradication treatment (2) Dental abscess: Currently not causing significant issue but will add flagyl for anaerobe coverage. Can probably discharge with Augmentin follow up with dentist (3) PHONG (obstructive sleep apnea): May use own CPAP. (4) Type II diabetes with detention use of insulin: HbA1c 8.9%. Patient reports she lost her glucometer and wasn't checking her sugars Hold her usual insulin and Trulicity regimen. Continue Lantus 20 units twice daily NovoLog sliding scale, aim 100-140, correction 20mg/dL/unit, 1 unit per 7 g carbs Consult patient educator (5) Acid reflux: Continue pantoprazole 40 mg p.o. daily (6) Asthma: No acute exacerbation, no complaints of sob or cough continue Dulera inhaler for hospital formulary equivalent. (7) Overactive bladder: Continue oxybutynin 10 mg p.o. daily (8) DVT prophylaxis: SCDs, enoxaparin Admission and Anticipated Discharge Date Admission Date: February 09, 2020 Subjective Eye with increased edema this morning, unable to open her eyelid. No pain in eyeball or with eye movements, no visual changes when she holds the lid open. Right abscess less painful today but abscess on the left still very painful ROS Constitutional: no chills, aches, sweats or fever Respiratory: no sob,cough, sputum, or wheezing Cardiac: no chest pain, palpitations, edema, orthopnea or lightheadedness GI: no abdominal pain, nausea, vomiting, diarrhea or constipation : no dysuria or hesitancy Extremities: no joint pain or weakness Skin: no rash, see HPI All other systems reviewed and negative Physical Exam Physical Exam: General: no distress Eyes: normal inspection, PERLL Respiratory: chest non tender, clear to auscultation, normal breath sounds, no respiratory distress, no accessory muscle use Cardiac: regular rate and rhythm, no rub or gallop, no murmur, no edema, no jvd GI/: active bowel sounds, no abd pain or tenderness, soft, non distended Extremities: normal range of motion, normal strength, non tender Neuro/Psych: alert and oriented x 3, normal mood and affect Skin: normal color, dry Results & Data Results & Data ([facility]) Vital Signs (Past 12 Hours) Vital Signs Temp Pulse Resp BP Pulse Ox 02/10/20 07:36 37.1 C 88 16 115/75 94 PG Care Time/CCT Total # of Minutes Spent Total Time Spent with Patient: Total time spent is greater than 50% in coordination of care (as documented) at patient's floor/unit and/or counseling patient: Coding Level of Care Code 67921 Subseq Hosp Care Lvl 2 Diagnoses Preseptal cellulitis of left eye L03.213 Dental abscess K04.7 PHONG (obstructive sleep apnea) G47.33 Type II diabetes with detention use of insulin E11.9; Z79.4 Acid reflux K21.9 Asthma J45.20 Asthma severity: mild Asthma persistence: intermittent Asthma complication type: uncomplicated Overactive bladder N32.81 DVT prophylaxis Z29.9 (1) Asthma Asthma severity: mild Asthma persistence: intermittent Asthma complication type: uncomplicated Qualified Code(s): J45.20 - Mild intermittent asthma, uncomplicated
[2020-02-10] MEDS ORDERED: PHARMACY GLYCEMIC MGMT CONSULT PRN (18:04)
[2020-02-11] MEDS: metroNIDAZOLE 500 MG/100 ML BAG IV SCH ×2 (02:50→11:05)
[2020-02-11] MEDS: ENOXAPARIN INJ 40 MG/0.4 ML SYR SQ SCH (06:16)
[2020-02-11 07:35] LABS: Hematocrit (blood only) 43.9 % (37-47); Hemoglobin 14.2 g/dL (12.0-16.0); Mean Corpuscular Hemoglobin 29.2 pg (25-34); Mean Corpuscular Hgb Conc 32.3 g/dL (32-36); Mean Corpuscular Volume 90.1 fL (80-100); Mean Platelet Volume 10.7 fL (7.4-10.4); Platelet Count 238 K/uL (130-400); RDW Coefficient of Variation 14.8 % (11.5-14.5); RDW Standard Deviation 48.7 fL (36.4-46.3); Red Blood Count 4.87 M/uL (4.2-5.4); White Blood Count 7.27 K/uL (4.8-10.8)
[2020-02-11 08:04] LABS: BUN Creatinine Ratio 11.4 (10-20); Calcium 9.4 mg/dl (8.5-10.1); Creatinine Clr Calc Pharmacy 104.5 ml/min; Est GFR (African American) 75.9; Est GFR (Non-African American) 65.5; Potassium 3.9 mmol/L (3.5-5.1)
[2020-02-11] MEDS: [UNRECOGNIZED DRUG - REMARK] SCH (08:25)
[2020-02-11] MEDS: BuPROPion XL 150 MG TABCR PO SCH (08:27)
[2020-02-11] MEDS: FERROUS SULFATE 325 MG TAB PO SCH (08:27)
[2020-02-11] MEDS: PANTOprazole 40 MG TAB PO SCH (08:27)
[2020-02-11] MEDS: GABAPENTIN 100 MG CAP PO SCH (08:27)
[2020-02-11] MEDS: ASPIRIN 81 MG ECTAB PO SCH (08:28)
[2020-02-11] MEDS: TOPIRAMATE 50 MG TAB PO SCH (08:28)
[2020-02-11] MEDS: OXYBUTYNIN CHLORIDE XL 5 MG TABCR PO SCH (08:28)
[2020-02-11] MEDS: INSULIN GLARGINE SOLOSTAR 100 UNITS/ML 3 ML PEN SC SCH (08:34)
[2020-02-11] MEDS: INSULIN ASPART 100 UNITS/ML 3 ML PEN SC SCH ×2 (08:34→12:29)
--- NOTE | 2020-02-11 11:25 | Pharmacy Report ---
Pharmacy Glycemic Short Note 2 - Date of Service February 11, 2020 - Glycemic Short BSG Results (Last 24 hours): 02/10/20 02/10/20 02/10/20 11:58 17:14 17:42 Glucose POC Glucose 184 H 65 L* 85 02/11/20 02/11/20 07:08 08:17 Glucose 135 H POC Glucose 131 H OUTPATIENT ANTIDIABETIC REGIMEN: * Lantus 40 units SQ HS * Humalog 20 units SQ BIDM * A1c = 8.9% on 02/09/20 ASSESSMENT: * Pt has received 64 units of insulin over the past 24hrs * 40 units of basal with Lantus * 24 units of prandial/correctional with NovoLog * BSGs 143-184-65 (85)-113-131 mg/dl * AM fasting BSG is in goal range for inpatient targets. No changes needed to basal insulin dosing * Pt with LOW BSG prior to dinner, most likely due to large dose of NovoLog (15 units) given with lunch. Will loosen CF/CR PLAN FOR INPATIENT GLYCEMIC CONTROL: * Basal insulin: no change * Lantus 20 units SQ BID * Bolus insulin: loosen CF/CR * NovoLog per scale ACHS or Q6hrs while NPO * Goal Range: Low 110 mg/dL - High 140 mg/dL * Correction Factor: 25 mg/dL/unit * Nutritional / Prandial insulin per carb ratio of 1 unit per 8 grams CHO consumed
[2020-02-11] MEDS: cefTRIAXone SODIUM 2,000 MG in DEXTROSE 5% 50 ML IV SCH (12:21)
--- NOTE | 2020-02-11 14:09 | Discharge Summary ---
Date of Service February 11, 2020 Admission HPI Per Admitting Provider Jayne Thompson is a 54 year old female who presents to the ER with blurring vision, swelling and erythema around her left eye. 2 days previously she was seen by her PCP due to preauricular right-sided erythema and swelling. She was diagnosed with a small abscess anterior to her right ear. Unable to express any drainage to swab. She was started on Bactrim - of which she took 2 doses. Despite taking Bactrim last night she started developing mild swelling around her left eye with associated blurring of her vision. This morning she woke up with complete swelling around her eye which prompted her visit to the ER. She denies any fevers or chills. Initially she reported painless vision loss in her left eye however after putting her glasses on she reports her vision is at baseline without diplopia or painful movements. 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 CT face in the ER showed preseptal cellulitis without drainable abscess or evidence of postseptal cellulitis - she was referred to medicine for admission given failure of Bactrim as outpatient and immunocompromises state with diabetes. WBC 9.14. Principal Diagnosis Preseptal cellulitis Discharge Exam Constitutional WD/WN, vitals as above Respiratory normal respiratory effort, lungs clear to auscultation Cardiovascular RRR, no murmur, no edema Gastrointestinal (Abdomen) normal bowel sounds, soft, nontender, no hepatosplenomegaly Musculoskeletal no cyanosis or clubbing, extremities motor strength 5/5 Skin edema/erythema improving Neurologic moves all extremities and awake Psychiatric A+Ox3, euthymic affect Discharge Data Allergies Allergy/AdvReac Type Severity Reaction Status Date / Time fluticasone Allergy Severe increased Verified 02/08/20 10:57 SOB metformin Allergy Severe Hives Verified 02/08/20 10:57 salmeterol Allergy Severe increased Verified 02/08/20 10:57 SOB adhesive tape Allergy Unknown PAPER TAPE Verified 02/08/20 10:57 - Unknown bee venom protein (honey bee) Allergy Unknown Unknown Verified 02/08/20 10:57 clindamycin Allergy Unknown Unknown Verified 02/08/20 10:57 diphenhydramine Allergy Unknown Unknown Verified 02/08/20 10:57 erythromycin base Allergy Unknown Unknown Verified 02/08/20 10:57 mometasone furoate Allergy Unknown Unknown Verified 02/08/20 10:57 Paper tape Allergy Unknown RUIZ Uncoded 02/08/20 10:57 Consultations 02/08/20 11:03 ED Decision to Admit Stat 02/09/20 15:09 Consult Plastic Surgery Routine Ordered Studies 02/08/20 08:41 CT facial bones w con Stat Hospital Course (1) Preseptal cellulitis of left eye: Continue daptomycin, ceftriaxone 2 g IV daily, added Flagyl for anaerobe coverage -will discharge with Bactrim. Bactrim had been taken for 1.5 days before she came to the hospital but this is less likely a failure of treatment than the treatment just not taking effect with the abscesses yet. Now that she has had the abscesses opened and drained it may be more effective going forward. 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 Contact isolation. Culture of right abscess growing MRSA sensitive to Bactrim I&D by plastic surgery of right and left facial abscesses 02/08. Plastic surgery also I&D'd the left abscess as well. Warm compresses and change packing daily. Nursing gave teaching Patient will need referral to infectious disease for eradication treatment (2) Dental abscess: Currently not causing significant issue but will add flagyl for anaerobe coverage. discharge with Augmentin x 7 days follow up with dentist (3) PHONG (obstructive sleep apnea): May use own CPAP. (4) Type II diabetes with long-term use of insulin: HbA1c 8.9%. Patient reports she lost her glucometer and wasn't checking her sugars Hold her usual insulin and Trulicity regimen. Continue Lantus 20 units twice daily NovoLog sliding scale, aim 100-140, correction 20mg/dL/unit, 1 unit per 7 g carbs Consult educator senior clinical (5) Acid reflux: Continue pantoprazole 40 mg p.o. daily (6) Asthma: No acute exacerbation, no complaints of sob or cough continue Dulera inhaler for hospital formulary equivalent. (7) Overactive bladder: Continue oxybutynin 10 mg p.o. daily (8) DVT prophylaxis: SCDs, enoxaparin Total Time Total Time Spent Total Time Spent (In Minutes): greater than 30 minutes Discharge Plan Discharge Items Patient Disposition: Home - Self-Care Reason For Visit: PRESEPTAL CELLULITIS Discharge Diagnosis: Preseptal cellulitis Condition on Discharge: Good Activity: Resume your previous activity Non-emergency contact: Primary Care Provider Call non-emergency contact if: you have any medication questions, your symptoms worsen, your pain is worsening, you have a fever, your wound has increased redness, your wound has increased drainage and your wound pain has increased Follow-up/Referrals: Margo Cyr CRNP [Primary Care Provider] - (Please follow up early next week ) Diet: Carb Consistent or DM2 Addtl Attending Provider Instructions: (1) Preseptal cellulitis of left eye: Please complete the Bactrim prescription provided to you by Sheree Lau on 02/05. You should resume this medication tomorrow morning You will need to change the packing in the abscess every day and put warm compresses on it. You should return to the hospital if you have vision changes, pain in your eyeball, or pain with eye movement. Please call your doctor if you swelling worsens Please see your primary care provider early next week. Please have them refer you to an infectious disease specialist for MRSA eradication. (2) Dental abscess right maxillary incisor: You will also take Augmentin for this abscess. You should start this medication tomorrow morning. Please see your dentist this coming week to follow up. Pending Studies at Discharge: No Stand-Alone Forms: My [facility] [employer], Smoking Cessation Medications and DC Order Prescriptions: New amoxicillin-pot clavulanate [Augmentin] 875-125 mg tablet 1 tab PO BID Qty: 14 RF: 0 Continued aspirin [Aspirin Low Dose] 81 mg Tablet,Delayed Release (Dr/Ec) 81 mg PO DAILY Qty: 0 RF: 0 gabapentin 100 mg capsule 200 mg PO BID Qty: 0 RF: 0 ferrous sulfate 325 mg (65 mg iron) tablet 325 mg PO DAILY Qty: 90 RF: 3 albuterol sulfate 2.5 mg /3 mL (0.083 %) solution for nebulization 2.5 mg INH Q4H PRN (Reason: shortness of breath or wheezing) Qty: 75 RF: 5 clindamycin phosphate 1 % lotion 1 appln topical DAILY Qty: 60 RF: 1 atorvastatin 20 mg tablet 20 mg PO HS Qty: 90 RF: 3 pantoprazole 40 mg tablet,delayed release (DR/EC) 40 mg PO DAILY Qty: 90 RF: 3 Trulicity 1.5 mg/0.5 mL pen injector 1.5 mg SQ WEEKLY Qty: 2 RF: 5 insulin glargine 100 unit/mL solution 40 units SUBCUT HS Qty: 5 RF: 3 Dulera 50-5 mcg/actuation HFA aerosol inhaler 2 puffs INH BID Qty: 13 RF: 3 oxybutynin chloride 10 mg tablet extended release 24hr 10 mg PO DAILY Qty: 90 RF: 3 (DME) CPAP Supplies Misc See Rx Instructions .ROUTE .MEDSUPPLY Qty: 1 RF: 0 (DME) Auto Titrating CPAP Misc See Rx Instructions .ROUTE .MEDSUPPLY Qty: 1 RF: 0 insulin lispro [Humalog KwikPen Insulin] 100 unit/mL insulin pen 20 unit subcut BID Qty: 15 RF: 1 topiramate 50 mg tablet 50 mg PO BID RF: 0 epinephrine [EpiPen] 0.3 mg/0.3 mL auto-injector 0.3 mg IM Q15M PRN (Reason: anaphylaxis) Qty: 2 RF: 3 bupropion HCl [Wellbutrin XL] 300 mg tablet extended release 24 hr 450 mg PO QAM RF: 0 albuterol sulfate [ProAir HFA] 90 mcg/actuation HFA aerosol inhaler 2 puff INHALATION QID PRN (Reason: Shortness Of Breath) Qty: 18 RF: 3 (DME) pen needle, diabetic [1st Tier Unifine Pentips] 31 gauge x 5/16" needle See Rx Instructions .ROUTE .MEDSUPPLY Qty: 1,200 RF: 0 (DME) blood sugar diagnostic [OneTouch Verio test strips] Strip See Rx Instructions .ROUTE .MEDSUPPLY Qty: 300 RF: 3 sulfamethoxazole-trimethoprim [Bactrim DS] 800-160 mg tablet 1 tab PO BID 10 Days Qty: 20 RF: 0 Discharge Orders: Discharge Order (Routine); Ordered 02/11/20 Ordered By: Felisha Hogan/Other Patient Handouts: Managing Type 2 Diabetes, Amoxicillin Clavulanic Acid tablets Admission Data Admit Date/Time: 02/09/20 17:07 Attending Provider: Gibson Leach Admit Provider: Coleman Denton Primary Care Provider: Margo Cyr Other Providers: Coleman Denton ; Adriana Cortes Other Interventions: Discharge Summary Assessment (RN) Last Done: 02/11/20 13:59 Supervising Physician Co-Signing Physician Notes Patient seen and examined 24 hours within discharge. I agree with the discharge summary by Felisha SCHULTZ. I have reviewed the chart including labs, imaging and plans for discharge. MRSA abscess and preseptal cellulitis: responded well to incision and drainage of abscesses and IV antibiotics will discharge home on Bactrim warm compresses and change packing as instructed follow up with PCP, could refer to plastic surgery if their are complications should be referred to ID to eradicate the MRSA, h/o infections Coding Level of Care Code D/C Day Management >30 mins Diagnoses Preseptal cellulitis of left eye L03.213 Dental abscess K04.7 PHONG (obstructive sleep apnea) G47.33 Type II diabetes with roasterman use of insulin E11.9; Z79.4 Acid reflux K21.9 Asthma J45.20 Asthma complication type: uncomplicated Asthma persistence: intermittent Asthma severity: mild Overactive bladder N32.81 DVT prophylaxis Z29.9
[2020-02-11] MEDS: DAPTOmycin 600 MG in SYRINGE 0 ML IV SCH (14:56)
== END 2020-02-11 15:19 | disposition home health service (06) | DRG 603 ==
LOC: ED 07:58 → 3E 07:58 → SUATTDRO 11:38 → 3E 12:00